=== PATIENT | female | born 1980 | race African-American/Black ===

== ENCOUNTER → 2020-05-02 10:27 | Outpatient (BNVA) | payer MEDICAID, SELFPAY | PROVIDERS: Visit Provider Internal Medicine Cardiovascular Disease | DX: I25.10 Atherosclerotic heart disease of native coronary artery without angina pectoris (principal); I10 Essential (primary) hypertension; I25.2 Old myocardial infarction; Z79.02 Long term (current) use of antithrombotics/antiplatelets; Z79.82 Long term (current) use of aspirin | CPT/HCPCS: 99212 ==

== ENCOUNTER → 2021-01-08 11:22 | Outpatient (BNVA) | payer MEDICAID, SELFPAY | PROVIDERS: Visit Provider Internal Medicine Cardiovascular Disease | DX: I25.10 Atherosclerotic heart disease of native coronary artery without angina pectoris (principal); I10 Essential (primary) hypertension; G47.30 Sleep apnea, unspecified | CPT/HCPCS: 93005; 99212 ==

== ENCOUNTER 2021-05-12 15:24 | Outpatient (REF) | payer OTHER, SELFPAY ==
[2021-05-12 16:04] LABS: Alanine Aminotransferase 15 U/L (0-31); Albumin Level 3.7 g/dL (3.5-5.0); Alkaline Phosphatase 114 U/L (39-117); Anion Gap 14 (12-20); Aspartate Amino Transferase 11 U/L (5-31); Bilirubin Total 0.5 mg/dL (0.0-1.0); Blood Urea Nitrogen 22 mg/dL (9-16); Calcium 9.7 mg/dL (8.4-10.2); Carbon Dioxide 28 mmol/L (22-29); Chloride 101 mmol/L (96-108); Cholesterol 220 mg/dL; Estimated Glomerular Filt Rate 58; Glucose Fasting 191 mg/dL (60-99); HDL Cholesterol 35 mg/dL; LDL Cholesterol Calculated 151 mg/dl; Potassium 4.1 mmol/L (3.3-5.1); Sodium 139 mmol/L (135-145); Total Protein 7.6 g/dL (6.5-8.0); Triglycerides 172 mg/dL
== END 2021-05-12 15:25 | disposition home or self-care (01) ==
LOC: HO.LAB 15:24
PROVIDERS: Visit Provider Nurse Practitioner Family
DX: I25.10 Atherosclerotic heart disease of native coronary artery without angina pectoris (principal)
CPT/HCPCS: 36415; 80053; 80061

== ENCOUNTER → 2021-10-30 13:13 | Outpatient (BNVA) | payer OTHER, SELFPAY | PROVIDERS: Visit Provider Nurse Practitioner Family | DX: I25.10 Atherosclerotic heart disease of native coronary artery without angina pectoris (principal); I25.5 Ischemic cardiomyopathy; I10 Essential (primary) hypertension | CPT/HCPCS: 99212 ==

== ENCOUNTER → 2022-07-09 14:52 | Outpatient (BNVA) | payer OTHER, SELFPAY | PROVIDERS: Visit Provider Internal Medicine Cardiovascular Disease | DX: I25.10 Atherosclerotic heart disease of native coronary artery without angina pectoris (principal); I25.5 Ischemic cardiomyopathy; I21.3 ST elevation (STEMI) myocardial infarction of unspecified site; I10 Essential (primary) hypertension; Z98.890 Other specified postprocedural states | CPT/HCPCS: 93005; 99212 ==

== ENCOUNTER → 2022-11-12 14:50 | Outpatient (BNVA) | payer OTHER, SELFPAY | PROVIDERS: Visit Provider Nurse Practitioner Family | DX: I25.10 Atherosclerotic heart disease of native coronary artery without angina pectoris (principal); I25.5 Ischemic cardiomyopathy; I10 Essential (primary) hypertension; E78.5 Hyperlipidemia, unspecified | CPT/HCPCS: 93005; 99212 ==

== ENCOUNTER → 2022-11-30 15:34 | Outpatient (BNVA) | payer OTHER, SELFPAY | PROVIDERS: Visit Provider Nurse Practitioner Family | DX: I16.0 Hypertensive urgency (principal); I25.10 Atherosclerotic heart disease of native coronary artery without angina pectoris; I25.5 Ischemic cardiomyopathy; I21.4 Non-ST elevation (NSTEMI) myocardial infarction; Z98.890 Other specified postprocedural states | CPT/HCPCS: 99212 ==

== ENCOUNTER 2022-11-30 16:14 | Emergency (ER) | payer OTHER, SELFPAY ==
[2022-11-30] VITALS (9 sets, daily range): BP systolic 165–215; BP diastolic 100–128; PULSE 73–84; RESP 13–20; TEMP 36.6–36.7; O2SAT 98–100; BMI 47.3
--- NOTE | ~2022-11-30 | US_ITS ---
EXAMINATION: US VENOUS ULTRASOUND WITH DOPPLER LOWER EXTREMITY, BILATERAL CLINICAL INFORMATION: Bilateral lower extremity pain. COMPARISON: None available. TECHNIQUE: Ultrasound of the deep veins is performed from the hip to the calf with compression sonography and color and pulse Doppler assessment. Spectral analysis with color-flow imaging is performed. FINDINGS: RIGHT: There is normal venous compression and respiratory variation and augmented flow. The visualized common femoral vein, superficial femoral vein, profunda femoral vein, popliteal vein, and the trifurcation region shows no evidence of deep venous thrombosis. There is a 3.0 x 0.8 x 1.9 cm right popliteal fossa Chowdary's cyst. LEFT: There is normal venous compression and respiratory variation and augmented flow. The visualized common femoral vein, superficial femoral vein, profunda femoral vein, popliteal vein, and the trifurcation region shows no evidence of deep venous thrombosis. There is no significant popliteal fossa cyst. If the patient's symptoms persist, followup ultrasound in 5 days 7 days might be of value to exclude proximal propagation from a non-visualized calf vein. US/US venous duplex LE BI IMPRESSION: 1. No DVT demonstrated in the bilateral lower extremities. 2. A 3.0 cm in maximal diameter right popliteal fossa Chowdary's cyst is seen.
--- NOTE | ~2022-11-30 | XR_ITS ---
EXAMINATION: XR CHEST CLINICAL INFORMATION: Chest pain COMPARISON: None available. TECHNIQUE: Portable upright AP view of the chest was obtained. FINDINGS: Lungs are clear. No pneumothorax, pleural reaction, infiltrate, or groundglass opacity. No effusion. The heart is within normal size. The hilar and mediastinal contours and bony structures are unremarkable. XR/XR chest 1V IMPRESSION: Unremarkable examination.
--- NOTE | 2022-11-30 16:26 | ED_ITS ---
HPI - General Adult General Chief complaint: Chest Pain Stated complaint: swollen legs ,chest discomfort Time Seen by Provider: 11/30/22 16:39 Source: patient, RN notes reviewed and old records reviewed Mode of arrival: ambulatory Limitations: no limitations History of Present Illness HPI narrative: 42-year-old female with past medical history significant for coronary artery disease, hypertension, diabetes, obesity, hyperlipidemia, ischemic cardiomyopathy presents for evaluation of leg swelling, chest tightness Patient reports 3 weeks of bilateral leg swelling, chest tightness. Denies any sharp chest pain or shortness of breath. She went to her PCP today who referred her to cardiology given elevated blood pressure. On arrival, the patient's blood pressure is 215 over 128. On re-evaluation it improved to 199/107 Patient currently takes metoprolol wants mg, chlorthalidone 50 mg, amlodipine 10 mg and losartan 50 mg daily A few weeks ago she stopped her isosorbide mononitrate as this was causing her to feel weak In the patient reports she is due to see Nephrology in February She also reports that her pilot plant technician is ?attempting to find a new medication for me instead of the isosorbide but they haven't prescribed anything else yet. Related Data Home Medications Medication Instructions Recorded Confirmed albuterol sulfate 90 mcg/actuation 0 mcg inhalation 05/02/20 11/30/22 aerosol inhaler aspirin 81 mg tablet,delayed 81 mg PO DAILY 05/02/20 11/30/22 release fluticasone propionate 110 0 mcg inhalation 05/02/20 11/30/22 mcg/actuation HFA aerosol inhaler insulin degludec 200 unit/mL (3 unit subcut 05/02/20 11/30/22 mL) subcutaneous pen Previous Rx's Medication Instructions Recorded atorvastatin 80 mg tablet 80 mg PO BEDTIME 30 days #30 tabs 12/19/20 clopidogrel 75 mg tablet 75 mg PO DAILY 30 days #30 tabs 12/19/20 losartan 50 mg tablet 50 mg PO DAILY 30 days #30 tabs 06/09/21 metoprolol succinate 100 mg 100 mg PO DAILY #90 tabs 05/18/22 tablet,extended release 24 hr ezetimibe 10 mg tablet 10 mg PO DAILY #90 tabs 06/16/22 amlodipine 10 mg tablet 10 mg PO DAILY #90 tabs 08/03/22 chlorthalidone 50 mg tablet 50 mg PO DAILY #30 tabs 10/08/22 Allergies Allergy/AdvReac Type Severity Reaction Status Date / Time No Known Allergies Allergy Verified 11/30/22 16:24 Review of Systems Constitutional: Constitutional: Reports as per HPI, Denies chills and Denies fever(s) Cardiovascular: Cardiovascular: Reports leg edema and Denies dyspnea Respiratory: Respiratory: Denies dyspnea Neurologic: Denies focal weakness PMFSH Past Medical History Medical History (Updated 11/30/22 @ 20:59 by Claus Chiu) STEMI (ST elevation myocardial infarction) Surgical History (Updated 11/30/22 @ 17:14 by Shelby Gleason NP-C) Hx of appendectomy Hx of cardiac cath Hx of tonsillectomy Family History Family History Mother CVD (cardiovascular disease) Family/Other CVD (cardiovascular disease) Social History Social History Alcohol intake: current Alcohol intake frequency: a few times a month Alcohol type: wine Patient Tobacco Use Status: Never used Tobacco Smoked in Last 30 Days: No Use of substances other than those prescribed or required for medical reasons: No Advance Directives: No Advance Directives Information Provided: No Physical Exam ED Vital Signs: Vital Signs - 24 hr 11/30/22 16:25 11/30/22 17:02 11/30/22 17:52 Temperature 97.8 F Pulse Rate 76 77 77 Respiratory Rate 18 19 16 Blood Pressure 215/128 H 199/107 H 203/109 H Pulse Oximetry 98 99 99 Oxygen Delivery Method Room Air Room Air Room Air 11/30/22 18:30 11/30/22 19:26 11/30/22 20:18 Temperature 98.1 F Pulse Rate 84 77 74 Respiratory Rate 20 15 13 Blood Pressure 200/109 H 192/103 H 180/103 H Pulse Oximetry 98 99 98 Oxygen Delivery Method Room Air Room Air Room Air 11/30/22 20:49 11/30/22 21:18 Temperature Pulse Rate 73 77 Respiratory Rate 15 18 Blood Pressure 189/109 H 165/100 H Pulse Oximetry 99 100 Oxygen Delivery Method Room Air Room Air BMI result Body Mass Index 47.3 Const General: healthy appearing, comfortable, no acute distress, alert and awake Nutritional Appearance: well nourished Orientation/consciousness: patient oriented x3 HENMT Head: Yes normocephalic and Yes atraumatic Eyes Eyelids: Yes eyelids normal Conjunctivae: conjunctivae normal Sclerae: sclerae normal Corneas: corneas normal Pupils: Equal, round and reactive pupils present EOM: EOMs intact bilaterally Neck Neck: Yes full ROM Resp Effort & Inspection: normal respiratory effort, able to speak in complete sentences, no audible wheezes and not labored Auscultation: clear to auscultation bilaterally Cardio Other: One to 2+ bilateral pitting edema to the mid lower legs. No overlying skin changes Rate: regular rate Rhythm: regular rhythm Skin General skin exam: no rashes or lesions noted and elasticity normal Neuro General: patient oriented x3 Cranial nerves: Yes Equal, round and reactive pupils present and Yes Bilaterally intact EOM present Cognition (Neuro): normal cognition Extrem Other: Moving all extremities well without any obvious deformities Course Course Course Narrative: RME: 42yo F w/PMHx STEMI, HLD, ischemic cardiomyopathy, sent to ED from Cardiology c/o b/l LE edema x3 weeks with chest discomfort intermittently x3 weeks & SOB. denies CARTER HTNsive 215/128 in triage, bilateral LE pitting edema noted EKG, labs, CXR ordered Full HPI, ROS and PE to be performed by primary ED provider. Reevaluation(s) Reevaluation #1: Patient's blood pressure has remained hypertensive despite labetalol 100 mg orally, labetalol 10 mg IV, nitropaste. Currently she is 189/109. We will give her a dose of hydralazine 25 mg IV. Depending on results of this treatment, we will discuss for potential admission. The patient reports that she is willing to stay if recommended. Currently she is completely asymptomatic denies any headache, chest pain or chest pressure Time: 20:58 Reevaluation #2: I was informed by nursing staff that just prior to receiving her hydralazine, the patient's blood pressure was 160/100. The patient also reports that her pilot plant technician prescribed her hydrochlorothiazide to start taking that she may picker/puller tomorrow. Given that the patient is asymptomatic, I do not feel that it is appropriate to attempt to lower the patient's blood pressure any more than she currently is. The patient will be discharged. She will follow-up with her pilot plant technician and PCP. She reports that she will be able to picker/puller her hydrochlorothiazide tomorrow Time: 21:25 Medications Administered Discontinued Medications Generic Name Dose Route Start Last Admin Trade Name Ammy PRMariam Reason Stop Dose Admin Hydralazine HCl 10 mg 11/30/22 20:57 11/30/22 21:18 Hydralazine Hcl 20 Mg/Ml Vial IVPUSH 11/30/22 20:58 Not Given ONCE ONE Protocol Labetalol HCl 100 mg 11/30/22 17:10 11/30/22 17:26 Labetalol Hcl 100 Mg Tablet PO 11/30/22 17:11 100 mg ONCE ONE Administration Protocol Labetalol HCl 10 mg 11/30/22 17:58 11/30/22 18:07 Labetalol Hcl 100 Mg/20 Ml Vial IVPUSH 11/30/22 17:59 10 mg ONCE ONE Administration Nitroglycerin 1 inch 11/30/22 19:03 11/30/22 19:43 Nitroglycerin 2 % Oint 1 Gm Packet TRANSDERMA 11/30/22 19:04 1 inch ONCE ONE Administration Medical Decision Making Medical Decision Making [facility] Narrative: 42-year-old female presents for evaluation of leg swelling and chest tightness. Her symptoms started about 3 weeks ago. The patient is notably hypertensive on arrival. She is already on 4 antihypertensive agents. Will give her a dose of labetalol 100 mg p.o. pending her workup. Her EKG does show some lateral T-wave inversions but when compared to her EKG from 11/12/2022, no significant changes are noted. Less likely to be acute ischemia given 3 weeks of discomfort but a troponin was ordered. Order ultrasound of lower extremity to rule out DVT. I do feel that her symptoms are most likely related to her uncontrolled hypertension Differential Diagnosis Uncontrolled hypertension Chest pain Cardiomyopathy Ischemia DVT PE Lab Data [facility] Lab Attestation statement: I reviewed the patient's lab results. Patient's BNP was slightly elevated to 102 from but no evidence of congestive heart failure 11/30/22 17:15 11/30/22 17:15 Labs: Lab Results 11/30/22 11/30/22 11/30/22 Range/Units 17:15 17:15 17:15 WBC 9.9 (4.8-10.8) X10*3/uL RBC 4.38 (4.20-5.50) X10*6/uL Hgb 11.0 L (12.0-16.0) g/dl Hct 35.0 L (37.0-47.0) % MCV 79.9 L (80.0-98.0) fL MCH 25.1 L (27.0-33.0) pg MCHC 31.4 (31.0-35.0) g/dl RDW 13.5 (11.0-16.0) % Plt Count 362 (160-400) X10*3/uL MPV 11.2 (9.4-12.3) fL Immature Gran % (Auto) 0.3 (0.0-0.4) % Neut % (Auto) 58.4 (45-73) % Lymph % (Auto) 29.2 (20-40) % [place] % (Auto) 10.1 (2-11) % Eos % (Auto) 1.7 (0-4) % Baso % (Auto) 0.3 (0-2) % Lymph # (Auto) 2.9 (1.2-4.9) X10*3/uL [place] # (Auto) 1.0 (0.1-1.2) X10*3/uL Eos # (Auto) 0.2 (0.0-0.4) X10*3/uL Baso # (Auto) 0.0 (0.0-0.2) X10*3/uL Abs Immat Gran (auto) 0.03 (0.00-0.03) X10*3/uL Absolute Neuts (auto) 5.8 (2.0-8.3) x10*3/uL Absolute Nucleated RBC 0.000 (0.0-0.012) X10*3/uL Nucleated RBC % (auto) 0.0 (0.0-0.2) /100WBC PT 9.1 L (10.0-13.1) SEC INR 0.8 L (0.9-1.1) Sodium 141 (135-145) mmol/L Potassium 3.6 (3.3-5.1) mmol/L Chloride 105 (96-108) mmol/L Carbon Dioxide 30 H (22-29) mmol/L Anion Gap 11 L (12-20) BUN 17 H (9-16) mg/dL Creatinine 0.92 (0.5-1.4) mg/dL Estim Creat Clear Calc 104.0 Estimated GFR > 60 Random Glucose 97 (60-115) mg/dL Calcium 9.5 (8.4-10.2) mg/dL Magnesium 2.1 (1.6-2.6) mg/dL Total Bilirubin 0.3 (0.0-1.0) mg/dL Direct Bilirubin 0.1 (0.0-0.5) mg/dL AST 14 (5-31) U/L ALT 13 (0-31) U/L Alkaline Phosphatase 138 H (39-117) U/L Troponin I High Sens (<3.5-17.0) ng/L B-Natriuretic Peptide (<100) pg/mL Total Protein 6.8 (6.5-8.0) g/dL Albumin 3.3 L (3.5-5.0) g/dL 11/30/22 11/30/22 Range/Units 17:15 17:15 WBC (4.8-10.8) X10*3/uL RBC (4.20-5.50) X10*6/uL Hgb (12.0-16.0) g/dl Hct (37.0-47.0) % MCV (80.0-98.0) fL MCH (27.0-33.0) pg MCHC (31.0-35.0) g/dl RDW (11.0-16.0) % Plt Count (160-400) X10*3/uL MPV (9.4-12.3) fL Immature Gran % (Auto) (0.0-0.4) % Neut % (Auto) (45-73) % Lymph % (Auto) (20-40) % [place] % (Auto) (2-11) % Eos % (Auto) (0-4) % Baso % (Auto) (0-2) % Lymph # (Auto) (1.2-4.9) X10*3/uL [place] # (Auto) (0.1-1.2) X10*3/uL Eos # (Auto) (0.0-0.4) X10*3/uL Baso # (Auto) (0.0-0.2) X10*3/uL Abs Immat Gran (auto) (0.00-0.03) X10*3/uL Absolute Neuts (auto) (2.0-8.3) x10*3/uL Absolute Nucleated RBC (0.0-0.012) X10*3/uL Nucleated RBC % (auto) (0.0-0.2) /100WBC PT (10.0-13.1) SEC INR (0.9-1.1) Sodium (135-145) mmol/L Potassium (3.3-5.1) mmol/L Chloride (96-108) mmol/L Carbon Dioxide (22-29) mmol/L Anion Gap (12-20) BUN (9-16) mg/dL Creatinine (0.5-1.4) mg/dL Estim Creat Clear Calc Estimated GFR Random Glucose (60-115) mg/dL Calcium (8.4-10.2) mg/dL Magnesium (1.6-2.6) mg/dL Total Bilirubin (0.0-1.0) mg/dL Direct Bilirubin (0.0-0.5) mg/dL AST (5-31) U/L ALT (0-31) U/L Alkaline Phosphatase (39-117) U/L Troponin I High Sens 9.9 (<3.5-17.0) ng/L B-Natriuretic Peptide 102 H (<100) pg/mL Total Protein (6.5-8.0) g/dL Albumin (3.5-5.0) g/dL Independent Interpretation I performed an independent interpretation of an: EKG (Sinus rhythm at a rate of 77 beats per minute. Lateral T-wave inversions) Discharge Plan Discharge Clinical Impression: Hypertensive urgency Patient Disposition: Home, Self-Care Instructions: Hypertensive Crisis (ED) Additional Instructions: Take all of your medications as prescribed. In addition picker/puller the hydrochlorothiazide was prescribed by her pilot plant technician Return for new or worsening symptoms Prescriptions: No Action atorvastatin 80 mg tablet 80 mg PO BEDTIME 30 Days Qty: 30 0RF Hold Instructions: clopidogrel 75 mg tablet 75 mg PO DAILY 30 Days Qty: 30 0RF losartan 50 mg tablet 50 mg PO DAILY 30 Days Qty: 30 4RF Hold Instructions: metoprolol succinate 100 mg tablet extended release 24 hr 100 mg PO DAILY Qty: 90 1RF Rx Instructions: Keep your upcoming appt with Dr. Johnson in June to cont receiving refills. ezetimibe 10 mg tablet 10 mg PO DAILY Qty: 90 3RF Hold Instructions: amlodipine 10 mg tablet 10 mg PO DAILY Qty: 90 1RF chlorthalidone 50 mg tablet 50 mg PO DAILY Qty: 30 5RF albuterol sulfate 90 mcg/actuation HFA aerosol inhaler 0 mcg inhalation Tresiba FlexTouch U-200 200 unit/mL (3 mL) insulin pen subcut aspirin 81 mg tablet,delayed release (DR/EC) 81 mg PO DAILY Flovent HFA 110 mcg/actuation HFA aerosol inhaler 0 mcg inhalation
--- NOTE | 2022-11-30 16:30 | ECG_ITS ---
Test Reason : chest pain Blood Pressure : / mmHG Vent. Rate : 077 BPM Atrial Rate : 077 BPM P-R Int : 134 ms QRS Dur : 100 ms QT Int : 398 ms P-R-T Axes : 047 008 139 degrees QTc Int : 450 ms Normal sinus rhythm Minimal voltage criteria for LVH, may be normal variant ( [place] product ) T wave abnormality, consider lateral ischemia Abnormal ECG No previous ECGs available Referred By: Amanda Ryan Electronically Signed By:CINDY DIAMOND MD
[2022-11-30 17:19] LABS: MANUAL DIFF FLAG NO
[2022-11-30 17:22] LABS: Basophils Percent Auto 0.3 % (0-2); Eosinophils Absolute Auto 0.2 X10*3/uL (0.0-0.4); Eosinophils Percent Auto 1.7 % (0-4); Imm Gran Abs Auto 0.03 X10*3/uL (0.00-0.03); Imm Gran Pct Auto 0.3 % (0.0-0.4); Lymphocytes Absolute Auto 2.9 X10*3/uL (1.2-4.9); Lymphocytes Percent Auto 29.2 % (20-40); Mean Corpuscular HGB Conc 31.4 g/dl (31.0-35.0); Mean Corpuscular Hemoglobin 25.1 pg (27.0-33.0); Mean Corpuscular Volume 79.9 fL (80.0-98.0); Mean Platelet Volume 11.2 fL (9.4-12.3); Monocytes Percent Auto 10.1 % (2-11); Neutrophils Absolute Auto 5.8 x10*3/uL (2.0-8.3); Neutrophils Percent Auto 58.4 % (45-73); Platelet Count 362 X10*3/uL (160-400); Red Blood Count 4.38 X10*6/uL (4.20-5.50); Red Cell Distribution Width 13.5 % (11.0-16.0); White Blood Count 9.9 X10*3/uL (4.8-10.8)
[2022-11-30] MEDS: Labetalol HCL 100 MG TABLET PO (17:26)
--- NOTE | 2022-11-30 17:28 | PC.NURSE ---
pt a&ox4, hypertensive, other vss. pt reporting 4/10 chest heaviness with bilateral lower extremity edema. 20G IV placed right AC, labs obtained. medicated per AUG. pt resting quietly, no new orders at this time.
[2022-11-30 17:32] LABS: INTERNATIONAL NORM RATIO 0.8 (0.9-1.1); Prothrombin Time 9.1 SEC (10.0-13.1)
[2022-11-30 17:41] LABS: Troponin-I High Sensitivity 9.9 ng/L (<3.5-17.0)
[2022-11-30 17:43] LABS: B Type Natriuretic Peptide 102 pg/mL (<100)
[2022-11-30] MEDS: Labetalol HCL 100 MG/20 ML VIAL 10 MG IVPUSH (18:07)
--- NOTE | 2022-11-30 18:11 | PC.NURSE ---
pt remains hypertensive, other vss, medicated per MAR.
[2022-11-30 18:12] LABS: Alanine Aminotransferase 13 U/L (0-31); Albumin Level 3.3 g/dL (3.5-5.0); Alkaline Phosphatase 138 U/L (39-117); Anion Gap 11 (12-20); Aspartate Amino Transferase 14 U/L (5-31); Bilirubin Direct 0.1 mg/dL (0.0-0.5); Bilirubin Total 0.3 mg/dL (0.0-1.0); Blood Urea Nitrogen 17 mg/dL (9-16); Calcium 9.5 mg/dL (8.4-10.2); Carbon Dioxide 30 mmol/L (22-29); Chloride 105 mmol/L (96-108); Estimated Glomerular Filt Rate > 60; Glucose Random 97 mg/dL (60-115); Magnesium 2.1 mg/dL (1.6-2.6); Potassium 3.6 mmol/L (3.3-5.1); Sodium 141 mmol/L (135-145); Total Protein 6.8 g/dL (6.5-8.0)
--- NOTE | 2022-11-30 18:55 | PC.NURSE ---
assumed care of pt- handoff report given by KIRK Brink aox4 no apparent distress, resting quietly while watching tv c/o sob, htn, no chest pain at this time, edema bilat feet, difficulty walking, fatigue on exertion, pt sent to ED by supervisor travel information center d/t htn h/o L renal artery stenosis, OR, DMII VSS- bp remains significantly elevated at 192/103 provider aware will CTM
[2022-11-30] MEDS: Nitroglycerin 2 % Oint 1 GM Packet 1 INCH TRANSDERMA (19:43)
--- NOTE | 2022-11-30 19:43 | PC.NURSE ---
administered 2% ointment 1 in transdermal per MAR applied to pt's L upper chest area
--- NOTE | 2022-11-30 21:20 | PC.NURSE ---
bp 165/100 provider notified per provider hydralazine held
--- NOTE | 2022-11-30 21:45 | PC.NURSE ---
Discharge instructions given and explained to pt No apparent distress, no sob, able to speak in full sentences aox4 ambulates safely/independently IV cath tip intact upon removal all of pt's questions answered
== END 2022-11-30 21:45 | disposition home or self-care (01) ==
PROVIDERS: Physician Assistant; Emergency Provider Emergency Medicine Emergency Medical Services
DX: I16.0 Hypertensive urgency (principal); I11.9 Hypertensive heart disease without heart failure; R07.9 Chest pain, unspecified; M79.89 Other specified soft tissue disorders; I25.10 Atherosclerotic heart disease of native coronary artery without angina pectoris; E11.9 Type 2 diabetes mellitus without complications; E78.5 Hyperlipidemia, unspecified; I43 Cardiomyopathy in diseases classified elsewhere
CPT/HCPCS: 36415; 71045; 80048; 80076; 83735; 83880; 84484; 85025; 85610; 93005; 93970; 96374; 99284; 99285

== ENCOUNTER 2022-12-28 12:57 | Outpatient (AMB) | payer OTHER, SELFPAY ==
--- NOTE | 2022-12-28 13:05 | A.OFFVIS_ITS ---
Intake Vital Signs 12/28/22 13:06 Height 5 ft 4 in Weight 264 lb 8.875 oz BMI 45.4 BP 160/100 H Blood Pressure Location Lt brachial Position Sitting Pulse 78 Intake Visit Reasons: s/p htn [facility] Intake Note: s/p htn [facility] Cash Management Coordinator Required: No Allergies No Known Allergies Allergy (Verified 12/28/22 13:14) Medication List - Last Reconciled 12/28/22 by Shelby Gleason, NOMAN-C albuterol sulfate 90 mcg/actuation 0 mcg inhalation amlodipine 10 mg PO DAILY aspirin 81 mg PO DAILY atorvastatin 80 mg PO BEDTIME 30 days chlorthalidone 50 mg PO DAILY clopidogrel 75 mg PO DAILY 30 days ezetimibe 10 mg PO DAILY fluticasone propionate 110 mcg/actuation 0 mcg inhalation insulin degludec units subcut losartan 50 mg PO DAILY 30 days metoprolol succinate ER 100 mg PO DAILY HPI s/p htn [facility] HPI Details Janice is a 42-year-old female with past medical history of hypertension, hyperlipidemia, inferior STEMI 07/2019 with occluded OM 2, NSTEMI 03/2022 determined to be related to uncontrolled hypertension, ischemic cardiomyopathy who presented last visit with sob, edema and uncontrolled BP. She was sent to ED for evaluation and treatment. She was treated with labetalol and hydralazine with reduction in blood pressure. Today she presents for follow-up. Today she states she continues to have elevated blood pressure readings whenever it is checked. She does not have a cuff at home but is asking for one. She has no headache or visual changes. No chest discomfort at rest or with activity. She does have shortness of breath with activity which she relates to asthma. No PND, orthopnea or edema. Prior edema resolved after the start of hydrochlorothiazide. E no dizziness, presyncope, syncope, falls. Taking meds as directed. [facility] Medical History STEMI (ST elevation myocardial infarction) Surgical History Hx of appendectomy Hx of cardiac cath Hx of tonsillectomy Family History Mother CVD (cardiovascular disease) Family/Other CVD (cardiovascular disease) Social History Alcohol intake: current Alcohol intake frequency: a few times a month Alcohol type: wine Patient Tobacco Use Status: Never used Tobacco Review of Systems Const All systems reviewed & are unremarkable except as noted in HPI and below ENT Reports dizziness Card Denies chest pain, Denies chest pain at rest, Denies chest pain with activity, Denies rapid heart rate, Denies pedal edema, Denies edema, Denies leg edema, Denies lightheadedness, Denies palpitations, Denies dyspnea, Denies dyspnea on exertion and Denies orthopnea Resp Denies cough, Denies dyspnea and Denies dyspnea on exertion GI Denies hematochezia and Denies change in stool character Musc Denies abnormal gait, Reports limited range of motion, Reports muscle cramps, Denies muscle weakness, Denies numbness, Denies radiating pain into limb, Denies stiffness and Denies tingling Neuro Denies abnormal gait, Reports dizziness, Denies numbness and Denies tingling Endo Denies palpitations Physical Exam Vital Signs: Last Vital Signs Pulse 78 12/28/22 13:06 BP 160/100 H 12/28/22 13:06 BMI result Body Mass Index 45.4 Const Other: morbidly obese General: cooperative, comfortable and no acute distress Orientation/consciousness: patient oriented x3 Neck Neck: Yes normal visual inspection Resp Effort & Inspection: normal respiratory effort Auscultation: clear to auscultation bilaterally, no crackles, no rales, no rhonchi and no wheezes Cardio Jugular venous distension: no JVD Rate: regular rate Rhythm: regular rhythm Heart sounds: S1 normal heart sound present, S2 normal heart sound present, no gallops, no murmurs and no rubs Peripheral pulses: Peripheral pulses 2+ throughout Neuro General: patient oriented x3 Extrem General: Yes normal to inspection Psych Appearance: grossly normal Mental Status: mental status grossly normal Speech and movement: Normal speech and movement present Office Procedures EKG Details: Today, read by me, normal sinus rhythm, ST and T-wave abnormality, inferior lateral leads, likely repolarization abnormality unchanged from prior EKG, rate 78, QTC 446 [id number], Complete Assessment & Plan Assessment & Plan (1) Uncontrolled hypertension: Code(s): I10 - Essential (primary) hypertension Plan: Blood pressure elevated at last visit initially 206/118 in our office. Recheck after 10 minutes by me 198/108. She reports symptoms of increased shortness of breath, chest heaviness and leg edema in the last 3 weeks. She reports compliance with all her medications including amlodipine, chlorthalidone, losartan, metoprolol XL. History of NSTEMI 03/2022 in the setting of uncontrolled hypertension. 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 Last echocardiogram done at [facility] on 04/19/2022 showing EF 45-50%, hypokinesis of the inferior and inferior lateral wall, LV wall thickness moderately increased. She was sent to the ER for evaluation and treatment. She was given labetalol and hydralazine with improvement in her blood pressure down to her usual is a 160 over 90s and she was discharged to home. Since then her PCP has added hydrochlorothiazide. She also continues on chlorthalidone. She tells me that she has a blockage in her kidney that adds to her blood pressure. I have reviewed our records at [facility] and I do not see a renal artery ultrasound report. She has an upcoming appointment with Nephrology to review. Today blood pressure is still not optimally controlled. She is not symptomatic at present. Will check labs today, BMP. Results available prior to the completion of this note. Potassium 3.4, creatinine 0.96. Will call her to verify her losartan dose and plan to increase. If no renal artery ultrasound can be accessed then will obtain prior to her next visit. Cardiology follow-up in 4-6 weeks for blood pressure evaluation and test result review. (2) CAD (coronary artery disease): Code(s): I25.10 - Atherosclerotic heart disease of [place] coronary artery without angina pectoris Plan: Known history of CAD as stated above. Previously reported chest heaviness when BP in high range. ER visit at the time of last visit and troponin was normal. No longer having chest discomfort and BP in better range however remains elevated. At present she is on aspirin, Plavix, high-dose atorvastatin, Zetia, metoprolol XL 100 mg daily (3) Ischemic cardiomyopathy: Code(s): I25.5 - Ischemic cardiomyopathy Plan: Last known EF 45-50%. Known ischemic cardiomyopathy. BNP only mildly elevated at recent ER visit. On exam today she has no clinical signs decompensated heart failure. 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 Panel 12/28/22 I10 - Essential (primary) hypertension Coding Level of Care Code Est Pt Level 4 (79861) Diagnoses Uncontrolled hypertension I10 CAD (coronary artery disease) I25.10 Ischemic cardiomyopathy I25.5 Hx of cardiac cath Z98.890 NSTEMI (non-ST elevated myocardial infarction) I21.4 CPT Codes EKG - CPT: 85943-[id number], Complete ([id number]) Time Spent (min) 26 Comment chart review, document, interview, assess
[2022-12-28 13:06] VITALS: BP 160/100; PULSE 78; BMI 45.4
== END 2022-12-28 13:38 | disposition home or self-care (01) ==
PROVIDERS: Visit Provider Nurse Practitioner Family
DX: I10 Essential (primary) hypertension (principal)
CPT/HCPCS: 93010; 99214

== ENCOUNTER 2022-12-28 12:57 | Outpatient (REF) | payer OTHER, SELFPAY ==
[2022-12-28 15:29] LABS: Alanine Aminotransferase 12 U/L (0-31); Albumin Level 3.2 g/dL (3.5-5.0); Alkaline Phosphatase 124 U/L (39-117); Anion Gap 13 (12-20); Aspartate Amino Transferase 13 U/L (5-31); Bilirubin Total 0.6 mg/dL (0.0-1.0); Blood Urea Nitrogen 20 mg/dL (9-16); Carbon Dioxide 30 mmol/L (22-29); Chloride 101 mmol/L (96-108); Cholesterol 299 mg/dL; Estimated Glomerular Filt Rate > 60; Glucose Random 145 mg/dL (60-115); HDL Cholesterol 40 mg/dL; LDL Cholesterol Calculated 217 mg/dl; Potassium 3.4 mmol/L (3.3-5.1); Sodium 141 mmol/L (135-145); Triglycerides 212 mg/dL
== END 2022-12-28 12:58 | disposition home or self-care (01) ==
LOC: HO.LAB 12:57
PROVIDERS: Visit Provider Nurse Practitioner Family
DX: I10 Essential (primary) hypertension (principal); I25.10 Atherosclerotic heart disease of native coronary artery without angina pectoris; I25.5 Ischemic cardiomyopathy; I21.4 Non-ST elevation (NSTEMI) myocardial infarction; Z98.890 Other specified postprocedural states
CPT/HCPCS: 36415; 80053; 80061; 93005; 99212

== ENCOUNTER 2023-07-26 08:50 | Outpatient (AMB) | payer OTHER, SELFPAY ==
[2023-07-26 08:53] VITALS: BP 160/114; PULSE 77; BMI 44.3
--- NOTE | 2023-07-26 08:53 | A.OFFVIS_ITS ---
Intake Vital Signs 07/26/23 08:53 Height 5 ft 4 in Weight 257 lb 15.053 oz BMI 44.3 BP 160/114 H Blood Pressure Location Rt brachial Position Sitting Pulse 77 Pulse Source Monitor Intake Visit Reasons: FU last seen december/2022 Installation Service Representative Required: No Allergies No Known Allergies Allergy (Verified 07/26/23 08:56) Medication List - Last Reconciled 07/26/23 by Shelby Gleason, CHARGE OUT CLERK-C albuterol sulfate 90 mcg/actuation 0 mcg inhalation amlodipine 10 mg PO DAILY aspirin 81 mg PO DAILY atorvastatin 80 mg PO BEDTIME 30 days blood pressure monitor (Blood Pressure Kit) As directed chlorthalidone 50 mg PO DAILY clopidogrel 75 mg PO DAILY 30 days ezetimibe 10 mg PO DAILY fluticasone propionate 110 mcg/actuation 0 mcg inhalation hydralazine 100 mg PO ONCE insulin degludec units subcut losartan 50 mg PO DAILY 30 days metoprolol succinate ER 100 mg PO DAILY HPI FU last seen december/2022 HPI Details Janice is a 42-year-old female with past medical history of morbid obesity, hypertension, hyperlipidemia, inferior STEMI 07/2019 with occluded OM 2, NSTEMI 03/2022 determined to be related to uncontrolled hypertension, ischemic cardiomyopathy who presents for follow-up. 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 They have taken over management of her blood pressure medications. Hydralazine was recently added. She has follow-up in a few weeks. She tells me she did have a renal artery ultrasound though not at [facility]. Results unknown. She has been experiencing some sharp pains to her left chest region which occur randomly and can last a few minutes before resolving. She describes this as being new. She says at the time she had a heart attack she only felt a cramping in her left scapula and left anterior shoulder region. She thought she had a pulled muscle. She describes that when she had a ruptured appendix at only caused her minor discomfort. She believes that she does not have a strong pain sensory response to things. Mild shortness of breath insertion, not new. No palpitations, lightheadedness, presyncope, syncope, falls. No PND, orthopnea or edema. Taking all meds as directed. 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 [facility] Medical History STEMI (ST elevation myocardial infarction) Surgical History Hx of cardiac cath Hx of tonsillectomy Hx of appendectomy Family History Mother CVD (cardiovascular disease) Family/Other CVD (cardiovascular disease) Social History Alcohol intake: current Alcohol intake frequency: a few times a month Alcohol type: wine Patient Tobacco Use Status: Never used Tobacco Review of Systems Const Details: Reports blood pressure had been running high but feels good with no concerning symptoms All systems reviewed & are unremarkable except as noted in HPI and below ENT Denies dizziness Card Denies chest pain, Denies chest pain at rest, Denies chest pain with activity, Denies rapid heart rate, Denies pedal edema, Denies edema, Denies leg edema, Denies lightheadedness, Denies palpitations, Denies dyspnea, Denies dyspnea on exertion and Denies orthopnea Resp Denies cough, Denies dyspnea and Denies dyspnea on exertion GI Denies hematochezia and Denies change in stool character Musc Denies abnormal gait, Denies limited range of motion, Denies muscle cramps, Denies muscle weakness, Denies numbness, Denies radiating pain into limb, Denies stiffness and Denies tingling Neuro Denies abnormal gait, Denies dizziness, Denies numbness and Denies tingling Endo Denies palpitations Physical Exam Const Other: Morbidly obese General: cooperative, comfortable and no acute distress Orientation/consciousness: patient oriented x3 Neck Neck: Yes normal visual inspection Resp Effort & Inspection: normal respiratory effort Auscultation: clear to auscultation bilaterally, no rales, no rhonchi and no wheezes Cardio Jugular venous distension: no JVD Rate: regular rate Rhythm: regular rhythm Heart sounds: S1 normal heart sound present, S2 normal heart sound present, no murmurs and no rubs Neuro General: patient oriented x3 Extrem General: Yes normal to inspection and No no pedal edema Psych Appearance: grossly normal Mental Status: mental status grossly normal Speech and movement: Normal speech and movement present Office Procedures EKG Details: Today, read by me, sinus rhythm, rate 77, ST and T-wave abnormality in the inferior and lateral leads. Compared to prior EKG, inferior segment now involved. QTC 443 milliseconds [id number], Complete Assessment & Plan Assessment & Plan (1) Uncontrolled hypertension: Code(s): I10 - Essential (primary) hypertension Plan: History of uncontrolled hypertension. History of NSTEMI 03/2022 in the setting of uncontrolled hypertension. 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 Last echocardiogram done at [facility] on 04/19/2022 showing EF 45-50%, hypokinesis of the inferior and inferior lateral wall, LV wall thickness moderately increased. On follow-up visits here her blood pressure has been elevated. She tells me she is now following with Nephrology at [facility]. Hydralazine was recently added. She continues on amlodipine, chlorthalidone, losartan and metoprolol XL. Blood pressure today 160/114. She reports strict compliance with her medications. She describes having a renal artery ultrasound completed but results are unknown. She has follow-up with [facility] Nephrology in a few weeks. They will continue to manage her blood pressure as she is currently feeling well. She says she has never had a sleep study. Will order a home sleep study to evaluate for ELMA. Emergency care if ever needed for any concerning symptoms. (2) CAD (coronary artery disease): Code(s): I25.10 - Atherosclerotic heart disease of [place] coronary artery without angina pectoris Plan: Known history of CAD as stated above. Previously reported chest heaviness when BP in high range. No recent reports of chest heaviness. She has been getting sharp pains in the left chest region which are new or and can last a few minutes before resolving. These occur periodically without known trigger. Will update nuclear stress test to evaluate for any ischemia. Plan for a pharmacological nuclear stress test as her blood pressure has been elevated. Will update echocardiogram as last EF did show reduced EF. Signs and symptoms of angina reviewed with her. Plan to call her with test results. Cardiology office visit in 6 months, sooner if needed. Continue aspirin, Plavix, high-dose atorvastatin , Zetia, metoprolol XL 100 mg daily (3) Ischemic cardiomyopathy: Code(s): I25.5 - Ischemic cardiomyopathy Plan: Last known EF 45-50%. Known ischemic cardiomyopathy. On exam today she has no clinical signs decompensated heart failure. 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 Code(s): Z98.890 - Other specified postprocedural states Plan: As above (5) NSTEMI (non-ST elevated myocardial infarction): Code(s): I21.4 - Non-ST elevation (NSTEMI) myocardial infarction Plan: As above Plan Time spent on chart review, documentation, interview and assessment Orders: Orders CA lexiscan stress w ashish Today I10 - Essential (primary) hypertension, I25.10 - Atherosclerotic heart disease of [place] coronary artery without angina pectoris, R94.31 - Abnormal electrocardiogram [ECG] [EKG] NM cardiolite stress test Today I10 - Essential (primary) hypertension, I25.10 - Atherosclerotic heart disease of [place] coronary artery without angina pectoris, R94.31 - Abnormal electrocardiogram [ECG] [EKG] CA echo transthoracic complete Today I10 - Essential (primary) hypertension, I25.10 - Atherosclerotic heart disease of [place] coronary artery without angina pectoris, R94.31 - Abnormal electrocardiogram [ECG] [EKG] RT home sleep study Today G47.10 - Hypersomnia, unspecified, I10 - Essential (primary) hypertension Coding Level of Care Code Est Pt Level 4 (09869) Diagnoses Uncontrolled hypertension I10 CAD (coronary artery disease) I25.10 Ischemic cardiomyopathy I25.5 Hx of cardiac cath Z98.890 NSTEMI (non-ST elevated myocardial infarction) I21.4 CPT Codes EKG - CPT: [id number], Complete ([id number]) Time Spent (min) 30
== END 2023-07-26 09:24 | disposition home or self-care (01) ==
PROVIDERS: Visit Provider Nurse Practitioner Family
DX: I10 Essential (primary) hypertension (principal); I25.10 Atherosclerotic heart disease of native coronary artery without angina pectoris; I25.5 Ischemic cardiomyopathy; Z98.890 Other specified postprocedural states; I21.4 Non-ST elevation (NSTEMI) myocardial infarction
CPT/HCPCS: 93010; 99214

== ENCOUNTER → 2023-07-26 08:50 | Outpatient (BNVA) | payer OTHER, SELFPAY | PROVIDERS: Visit Provider Nurse Practitioner Family | DX: I10 Essential (primary) hypertension (principal); I25.10 Atherosclerotic heart disease of native coronary artery without angina pectoris; I25.5 Ischemic cardiomyopathy; I25.2 Old myocardial infarction; Z79.02 Long term (current) use of antithrombotics/antiplatelets; Z79.82 Long term (current) use of aspirin; Z79.899 Other long term (current) drug therapy | CPT/HCPCS: 93005; 99212 ==

== ENCOUNTER → 2023-08-26 07:57 | Outpatient (REF) | payer OTHER, SELFPAY ==
--- NOTE | ~2023-08-26 | NM_ITS ---
Myocardial perfusion study Indication: Atherosclerotic heart disease to evaluate for myocardial ischemia Technique: The patient was brought in for a Lexiscan perfusion study on 08/26/2023. Patient performed low-level exercise and was injected 0.4 mg of Lexiscan intravenously. Within a minute of injection, 40 mCi of sestamibi was given intravenously. Images were obtained using the SPECT gamma camera interlaced with the gating device. Images were obtained in supine position. Resting perfusion study was performed on 08/31/2023. Patient was administered 40 mCi of sestamibi intravenously at rest. Images were then obtained in supine position. Images obtained with and without CT attenuation. Total DLP 188 mGy-cm. Images were processed with the software and compared side to side in short axis, horizontal long axis and vertical long axis views. Findings: The stress perfusion study showed showed large area all severely to absent uptake in the entire inferolateral, lateral as well as absent uptake in the inferoapical and moderately reduced uptake in the distal anterolateral and mildly reduced uptake in the distal anterior wall of the LV myocardium. The septum, the basal and mid anterior wall are relatively well perfused. The basal and mid anterolateral wall of the LV is.. The gated study shows reduced LV systolic function with calculated LVEF of 43%. LV cavity is moderately dilated size. The gated study shows inferolateral, lateral and inferoapical hypokinesis with normal wall thickening and contraction of other segments. Resting study shows improved uptake but mildly reduced uptake in the distal inferolateral, but normalize uptake in the basal and mid inferolateral as well as lateral and anterolateral wall of the LV myocardium.. Gating at rest reveals inferoapical wall motion with ejection fraction at 48%. The findings are consistent with large area of reversible defect in the inferolateral and lateral wall of the LV myocardium suggestive of intensity.. NM/NM cardiolite stress test Impression: 1. Myocardial perfusion imaging study shows no intensity large inferolateral and lateral wall ischemia in the circumflex distribution 2. Gated LVEF is 43% with stress and 48% with rest 3. Transient ischemic dilatation present EKG is nondiagnostic for ischemia
--- NOTE | 2023-08-26 08:00 | CA_ITS ---
Acquisition Time: 2023-08-26 08:50:18 Total Exercise Time: 00:02:00 Test Indications: Chest Pain, Shortness of breath Medications: See H Protocol: LEXISCAN Max HR: 103 BPM 57% of Pred: 178 BPM Max BP: 184/106 mmHG Max Work Load: 1.0 METS Pharmacological stress test with Lexiscan injection while sitting and kicking her legs, without anginal symptoms, without arrhythmias, with resting HTN, appropreiate response to injection, with nondiagnoisitic EKGs. Aminophylline 75mg IVP given to reverse Leixscan. Nuclear images pending. Test reviewed with Dr. Johnson. Referred By: Shelby Gleason Overread By: Susan Rodgers
--- NOTE | 2023-08-26 08:00 | CA_ITS ---
Transthoracic Echocardiogram Patient (Last, First, Middle): Janice Davenport, Gender: Female Date of : 1980 Age: 42 Procedure Date: 08/26/2023 Procedure Type: Transthoracic Echocardiogram Location: OP Height: 162.56 cm Weight: 116.12 kg BSA: 2.17 m2 Heart Rate: bpm BP: 144 / 77 mmHg Carbonation Equipment Operator: WILLIAM Referring MD: Shelby Gleason WASTE COLLECTION DRIVER-Dona Batch Blender: Zeus Smith MD Symptoms: I10 - Essential (primary) hypertension Study Quality: Adequate ECG Rhythm: Sinus Conclusions: - 1. Normal LV ejection fraction 55-60% with impaired relaxation filling pattern and elevated filling pressures with regional wall motion abnormality consistent with underlying coronary artery disease 2. Mild aortic regurgitation 3. Normal RV systolic pressure 4. No gross pericardial effusion Findings Left Ventricle Normal left ventricular size, thickness, and systolic function. The visually estimated ejection fraction is between 55-60%. There is evidence of regional wall motion abnormalities. Spectral Doppler is indicative of an impaired relaxation filling pattern. E/E prime ratio is >15, consistent with elevated filling pressures. Peak GLS is -16.2%, which is mildly reduced. Wall Motion Rest Echo Findings The inferoseptal wall, the basal inferior, and mid inferior segments are hypokinetic. All other scored wall segments showed normal motion. Right Ventricle Normal right ventricular cavity size and systolic function. Atria The left atrium is mildly dilated. There is no evidence of interatrial shunt. The right atrium is normal in size. Aortic Valve Normal aortic valve structure and function. There is no aortic valve stenosis. There is mild aortic valve regurgitation. Mitral Valve There is mild anterior and posterior mitral leaflet thickening. There is mild mitral annular calcification. There is trace mitral valve regurgitation. There is no mitral valve stenosis. Pulmonic Valve The pulmonic valve was not well visualized. Tricuspid Valve Normal tricuspid valve structure. There is mild tricuspid valve regurgitation. The right ventricular systolic pressure is normal. The right ventricular systolic pressure is 29 mmHg. Normal right atrial pressure. There is no evidence of pulmonary hypertension. Great Vessels All visible segments of the aorta are normal in size. The pulmonary artery was not well visualized. There is no dilatation of the ascending aorta measuring 3.30 cm. Venous The inferior vena cava is normal in size and collapses greater than 50% with inspiration. Pericardium/Pleural There is no evidence of pericardial effusion. Prior Study Comparison No prior study available for comparison. Measurements 2D Linear Measurements IVSd: 1.01 0.6-0.9/0.6-1.0 cm LVIDd: 5.40 3.9-5.3/4.2-5.9 cm LVIDd Index: 2.49 2.4-3.2/2.2-3.1 cm/m2 LVIDs: 3.61 2.0-3.6 cm LVPWd: 1.14 0.7-1.1 cm LA Diam: 4.40 2.7-3.8/3.0-4.0 cm LAIDs Index: 2.03 1.5-2.3 cm/m2 LV Mass: 283.82 67-162/88-224 g LV Mass Index: 130.79 43-95/49-115 g/m2 LVOT Diam: 2.00 3.0+(-)1.3 cm 2D Systolic Function EF 4C: 54.40 >55% EF 2C: 58.00 >55% EF BiP: 55.90 >55% Mitral Valve MV Pk E: 1.03 MV PK A: 1.23 MV Decel Time: 167.00 E/A: 0.80 E'Lateral: 4.57 E'Medial: 4.68 E/E' Med: 22.00 E/E' Lat: 22.50 PHT: 49.00 MVA PHT: 4.49 Decel [place]: 6.15 Aortic Valve AoV Pk [place]: 1.61 AoV Mn [place]: 1.04 AoV VTI: 0.33 AoV Pk Grad: 10.00 Aov Mn Grad: 5.00 GEETA Cont.VTI: 2.21 LVOT LVOT Pk [place]: 1.07 LVOT Mn [place]: 0.72 LVOT VTI: 0.23 LVOT Pk Grad: 5.00 LVOT Mn Grad: 2.00 LVOT Diam: 2.00 LVOT Area: 3.14 Diastolic Function MV Pk E: 1.03 MV Pk A: 1.23 E/A: 0.80 E'Medial: 4.68 E/E' Med: 22.00 E' Laterial: 4.57 E/E' Lat: 22.50 Right Ventricle TAPSE (mm): 22.10 TVS' [place]: 11.10 Tricuspid Valve TR Pk [place]: 2.56 TR Pk Grad: 26.00 RA Press: 3.00 RVSP: 29.00 Great Vessels Aorta Sinus of Valsalva: 3.24 2.0-3.[address] [place]: 2.73 1.7-3.4 cm Ao Asc: 3.30 2.1-3.4 cm Ao Arch: 2.90 Updated in Other Vendor System with Status of Final Zeus Smith MD electronically signed on 08/26/2023 1:48:45 PM with status of Final
== END ==
LOC: HO.CARD 07:57
PROVIDERS: Visit Provider Nurse Practitioner Family
DX: I25.10 Atherosclerotic heart disease of native coronary artery without angina pectoris (principal); I10 Essential (primary) hypertension; R94.31 Abnormal electrocardiogram [ECG] [EKG]
CPT/HCPCS: 78452; 93017; 93306; 93356; A9500; J0280; J2785

== ENCOUNTER → 2023-08-26 08:00 | Outpatient (BNV) | payer OTHER, SELFPAY | PROVIDERS: Visit Provider Internal Medicine Cardiovascular Disease | DX: I25.10 Atherosclerotic heart disease of native coronary artery without angina pectoris (principal); I35.1 Nonrheumatic aortic (valve) insufficiency | CPT/HCPCS: 78452; 93016; 93018; 93306; 93356 ==

== ENCOUNTER → 2023-09-07 13:19 | Outpatient (REF) | payer OTHER, SELFPAY | LOC: HO.SL 13:19 | PROVIDERS: Visit Provider Nurse Practitioner Family | DX: G47.10 Hypersomnia, unspecified (principal); I10 Essential (primary) hypertension; R06.83 Snoring | CPT/HCPCS: 95806 ==

== ENCOUNTER → 2023-09-07 14:05 | Outpatient (BNV) | payer OTHER, SELFPAY | PROVIDERS: Visit Provider Internal Medicine | DX: R06.83 Snoring (principal) | CPT/HCPCS: 95806 ==

== ENCOUNTER 2023-09-20 11:32 | Outpatient (REF) | payer OTHER, SELFPAY ==
[2023-09-20 11:44] LABS: MANUAL DIFF FLAG NO
[2023-09-20 12:38] LABS: Basophils Percent Auto 0.4 % (0-2); Eosinophils Absolute Auto 0.2 X10*3/uL (0.0-0.4); Eosinophils Percent Auto 1.8 % (0-4); Hematocrit 33.8 % (37.0-47.0); Hemoglobin 10.4 g/dl (12.0-16.0); INTERNATIONAL NORM RATIO 0.8 (0.9-1.1); Imm Gran Abs Auto 0.07 X10*3/uL (0.00-0.03); Imm Gran Pct Auto 0.7 % (0.0-0.4); Lymphocytes Absolute Auto 2.7 X10*3/uL (1.2-4.9); Lymphocytes Percent Auto 26.6 % (20-40); Mean Corpuscular HGB Conc 30.8 g/dl (31.0-35.0); Mean Corpuscular Hemoglobin 24.4 pg (27.0-33.0); Mean Corpuscular Volume 79.2 fL (80.0-98.0); Mean Platelet Volume 11.5 fL (9.4-12.3); Monocytes Percent Auto 9.7 % (2-11); Neutrophils Absolute Auto 6.3 x10*3/uL (2.0-8.3); Neutrophils Percent Auto 60.8 % (45-73); Platelet Count 376 X10*3/uL (160-400); Prothrombin Time 9.8 SEC (11.1-13.3); Red Blood Count 4.27 X10*6/uL (4.20-5.50); Red Cell Distribution Width 15.3 % (11.0-16.0); White Blood Count 10.3 X10*3/uL (4.8-10.8)
[2023-09-20 13:02] LABS: Anion Gap 12 (12-20); Blood Urea Nitrogen 29 mg/dL (9-16); Calcium 9.4 mg/dL (8.4-10.2); Carbon Dioxide 24 mmol/L (22-29); Chloride 108 mmol/L (96-108); Estimated Glomerular Filt Rate 38; Glucose Random 254 mg/dL (60-115); Potassium 4.9 mmol/L (3.3-5.1); Sodium 139 mmol/L (135-145)
== END 2023-09-20 11:33 | disposition home or self-care (01) ==
LOC: HO.LAB 11:32
PROVIDERS: Visit Provider Nurse Practitioner Family
DX: R94.39 Abnormal result of other cardiovascular function study (principal)
CPT/HCPCS: 36415; 80048; 85025; 85610

== ENCOUNTER 2023-10-09 08:44 | Outpatient (REF) | payer OTHER, SELFPAY ==
[2023-10-09 09:00] LABS: MANUAL DIFF FLAG NO
[2023-10-09 10:05] LABS: Basophils Absolute Auto 0.1 X10*3/uL (0.0-0.2); Basophils Percent Auto 0.5 % (0-2); Eosinophils Absolute Auto 0.2 X10*3/uL (0.0-0.4); Eosinophils Percent Auto 2.1 % (0-4); Hemoglobin 10.3 g/dl (12.0-16.0); Imm Gran Abs Auto 0.04 X10*3/uL (0.00-0.03); Imm Gran Pct Auto 0.4 % (0.0-0.4); Lymphocytes Absolute Auto 2.6 X10*3/uL (1.2-4.9); Lymphocytes Percent Auto 27.9 % (20-40); Mean Corpuscular HGB Conc 31.2 g/dl (31.0-35.0); Mean Corpuscular Hemoglobin 24.7 pg (27.0-33.0); Mean Corpuscular Volume 79.1 fL (80.0-98.0); Mean Platelet Volume 11.8 fL (9.4-12.3); Monocytes Absolute Auto 0.9 X10*3/uL (0.1-1.2); Monocytes Percent Auto 9.8 % (2-11); Neutrophils Absolute Auto 5.4 x10*3/uL (2.0-8.3); Neutrophils Percent Auto 59.3 % (45-73); Platelet Count 365 X10*3/uL (160-400); Red Blood Count 4.17 X10*6/uL (4.20-5.50); White Blood Count 9.2 X10*3/uL (4.8-10.8)
[2023-10-09 10:15] LABS: INTERNATIONAL NORM RATIO 0.8 (0.9-1.1); Prothrombin Time 10.2 SEC (11.1-13.3)
[2023-10-09 10:58] LABS: Anion Gap 11 (12-20); Blood Urea Nitrogen 25 mg/dL (9-16); Calcium 9.1 mg/dL (8.4-10.2); Carbon Dioxide 27 mmol/L (22-29); Chloride 107 mmol/L (96-108); Estimated Glomerular Filt Rate 51; Glucose Random 119 mg/dL (60-115); Potassium 3.9 mmol/L (3.3-5.1); Sodium 141 mmol/L (135-145)
== END 2023-10-09 08:45 | disposition home or self-care (01) ==
LOC: HO.LAB 08:44
PROVIDERS: Visit Provider Nurse Practitioner Family
DX: R94.39 Abnormal result of other cardiovascular function study (principal); R94.31 Abnormal electrocardiogram [ECG] [EKG]
CPT/HCPCS: 36415; 80048; 85025; 85610

== ENCOUNTER → 2023-10-19 23:59 | Outpatient (BNV) | payer OTHER, SELFPAY | PROVIDERS: Visit Provider Internal Medicine Cardiovascular Disease | DX: I20.89 Other forms of angina pectoris (principal); R93.1 Abnormal findings on diagnostic imaging of heart and coronary circulation | CPT/HCPCS: 92928; 93458; 93571; 99152 ==

== ENCOUNTER 2023-11-08 15:41 | Outpatient (AMB) | payer OTHER, SELFPAY ==
[2023-11-08 15:47] VITALS: BP 162/90; PULSE 80; BMI 44.6
--- NOTE | 2023-11-08 15:47 | MHC.OFFVIS ---
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 Allergies No Known Allergies Allergy (Verified 11/08/23 15:49) Medication List - Last Reconciled 11/08/23 by Shelby Gleason NP-C albuterol sulfate 90 mcg/actuation 0 mcg inhalation amlodipine 10 mg PO DAILY aspirin 81 mg PO DAILY atorvastatin 80 mg PO DAILY blood pressure monitor (Blood Pressure Kit) As directed chlorthalidone 50 mg PO DAILY clopidogrel 75 mg PO DAILY 30 days ezetimibe 10 mg PO DAILY fluticasone propionate 110 mcg/actuation 0 mcg inhalation hydralazine 100 mg PO ONCE insulin degludec units subcut losartan 50 mg PO DAILY 30 days metoprolol succinate ER 100 mg PO DAILY spironolactone 50 mg PO BID HPI HPI fu cardiac cath (rs): Details: Janice is a 42-year-old female with past medical history of morbid obesity, hypertension, hyperlipidemia, inferior STEMI 07/2019 with occluded OM 2, NSTEMI 03/2022 determined to be related to uncontrolled hypertension, ischemic cardiomyopathy who reported intermittent sharp chest discomfort on last visit and underwent an echocardiogram and nuclear stress test. Her nuclear stress test was abnormal and she then underwent a cardiac catheterization and now presents for follow-up. Today she reports she has been feeling well since her catheterization procedure. She has some minor soreness in her right arm. Her cath site itself is feeling well. She has not been having the sharp chest discomfort recently. She does have some shortness of breath with activities but states that this has improved. She has been attending cardiac rehab which she says she is tolerating well. She is pleased that she is able to do more recently. No lightheadedness, presyncope, syncope, falls. No PND, orthopnea or edema. Taking meds as directed. Has a follow-up with her index editor next week. Taking all meds as directed. No bleeding issues reported. [facility] Medical History STEMI (ST elevation myocardial infarction) Surgical History Hx of cardiac cath Hx of tonsillectomy Hx of appendectomy Family History Mother CVD (cardiovascular disease) Family/Other CVD (cardiovascular disease) Social History Alcohol intake: current Alcohol intake frequency: a few times a month Alcohol type: wine Patient Tobacco Use Status: Never used Tobacco Review of Systems Const All systems reviewed & are unremarkable except as noted in HPI and below ENT Reports dizziness Card Denies chest pain, Denies chest pain at rest, Denies chest pain with activity, Denies rapid heart rate, Denies pedal edema, Denies edema, Denies leg edema, Denies lightheadedness, Denies palpitations, Reports dyspnea, Reports dyspnea on exertion and Denies orthopnea Resp Denies cough, Reports dyspnea and Reports dyspnea on exertion GI Denies hematochezia and Denies change in stool character Musc Denies abnormal gait, Denies limited range of motion, Denies muscle cramps, Denies muscle weakness, Denies numbness, Denies radiating pain into limb, Denies stiffness and Denies tingling Neuro Denies abnormal gait, Reports dizziness, Denies numbness and Denies tingling Endo Denies palpitations Physical Exam Vital Signs: Last Vital Signs Pulse 80 11/08/23 15:47 BP 162/90 H 11/08/23 15:47 BMI result Body Mass Index 44.6 Const Other: Morbidly obese General: cooperative, comfortable and no acute distress Orientation/consciousness: patient oriented x3 Neck Neck: Yes normal visual inspection Resp Effort & Inspection: normal respiratory effort Auscultation: clear to auscultation bilaterally, no rales, no rhonchi and no wheezes Cardio Jugular venous distension: no JVD Rate: regular rate Rhythm: regular rhythm Heart sounds: S1 normal heart sound present, S2 normal heart sound present, no murmurs and no rubs Neuro General: patient oriented x3 Extrem Other: Right radial catheterization site with easily palpable radial pulse, right hand assessment normal General: Yes normal to inspection and No no pedal edema Psych Appearance: grossly normal Mental Status: mental status grossly normal Speech and movement: Normal speech and movement present Assessment & Plan Assessment & Plan (1) CAD (coronary artery disease): Code(s): I25.10 - Atherosclerotic heart disease of lummi coronary artery without angina pectoris Category: Medical Plan: Known history of CAD, with NSTEMI 03/2022 in the setting of uncontrolled hypertension. Prior cardiac catheterization showing moderate mid LAD stenosis, severe 1st diagonal stenosis and WELLNESS SPA MANAGER of OM 2 with collaterals. More recently she has had issues with uncontrolled hypertension and now follows with Nephrology as well. She has reported some chest heaviness when her blood pressure was elevated. On last visit she reported getting sharp pains in the left chest region which were new, lasting minutes before resolving. She underwent a nuclear stress test on 08/31/2023 showing large area of inferior lateral and lateral wall ischemia in the circumflex distribution. An echocardiogram was done 08/26/2023 showing EF 55-60%, wall motion abnormality consistent with underlying CAD, mild AR. She then underwent cardiac catheterization as stated below. She had severe OM1 proximal stenosis and ADONAY was placed. Today she reports no sharp chest pains, her prior shortness of breath with activity has improved some. She is attending cardiac rehab. She is still having issues with uncontrolled hypertension. She has Nephrology follow-up next week. Blood pressure elevated today. She tells me home blood pressures ranging from 120 systolic up to 180 systolic. Since she is seeing Nephrology next week will not make med changes. Will have her continue on aspirin indefinitely. Continue Plavix uninterrupted for 1 year post stent. Continue amlodipine and metoprolol. Continue atorvastatin with ideal LDL goal less than 70. Signs and symptoms of angina reviewed. Cardiology follow-up in 3 months, sooner if needed. (2) S/P cardiac cath: Comment: 10/19/2023, mid LAD 40% stenosis, diffuse severe disease in the diagonal, left circumflex 1st OM proximal 85% stenosis, RCA, right PDA proximal 80% stenosis, 1st RPL proximal 85% stenosis, collaterals from 2nd RPL to 2nd OM, collaterals from distal LAD to the 2nd OM, PCI and stent placed to the 1st OM, IFR to the LAD was normal at 0.99 Code(s): Z98.890 - Other specified postprocedural states Category: Surgical Plan: Right radial catheterization site healing well (3) Hx of cardiac cath: Comment: 08/01/2019 occluded OM 2, questions CAD, on successful PCI 04/20/2022, moderate mid LAD stenosis, severe 1st diagonal stenosis, WELLNESS SPA MANAGER of OM 2 with collaterals Code(s): Z98.890 - Other specified postprocedural states Category: Surgical Plan: As above (4) Uncontrolled hypertension: Code(s): I10 - Essential (primary) hypertension Category: Medical Plan: History of uncontrolled hypertension. Has been on multiple medications for blood pressure control. She tells me home blood pressure is currently ranging systolic 120 up to 180. In the past her systolic had been running over 200 frequently. She is now following with Nephrology at [facility]. And has an appointment next week. She reports compliance with her medications. At this time will have her continue current med management including amlodipine, chlorthalidone, hydralazine, losartan, metoprolol XL, spironolactone. She describes having a renal artery ultrasound and tells me there is something going on with the artery to her kidneys. Ultrasound done in [place] and being managed by her index editor. She did have a sleep study recently done which showed no obstructive sleep apnea. Recent echo does show normal EF. Will have her see her index editor next week. They will continue to manage her blood pressure. (5) Ischemic cardiomyopathy: Code(s): I25.5 - Ischemic cardiomyopathy Category: Medical Plan: Prior known EF 45-50%. Now EF is normalized however wall motion abnormality present. Recent cardiac catheterization and stenting as above. On exam today she has no clinical signs decompensated heart failure. Plan Time spent on chart review, documentation, interview and assessment Medications: New atorvastatin Cholesterol-lowering medication 80 mg PO BEDTIME 30 days 30 tabs 5RF Coding Level of Care Code Est Pt Level 4 (05836) Diagnoses CAD (coronary artery disease) I25.10 S/P cardiac cath Z98.890 Hx of cardiac cath Z98.890 Uncontrolled hypertension I10 Ischemic cardiomyopathy I25.5 Time Spent (min) 30
== END 2023-11-08 17:11 | disposition home or self-care (01) ==
PROVIDERS: Visit Provider Nurse Practitioner Family
DX: I25.10 Atherosclerotic heart disease of native coronary artery without angina pectoris (principal); Z98.890 Other specified postprocedural states; I10 Essential (primary) hypertension; I25.5 Ischemic cardiomyopathy
CPT/HCPCS: 99214

== ENCOUNTER → 2023-11-08 15:41 | Outpatient (BNVA) | payer OTHER, SELFPAY | PROVIDERS: Visit Provider Nurse Practitioner Family | DX: I25.10 Atherosclerotic heart disease of native coronary artery without angina pectoris (principal); I25.5 Ischemic cardiomyopathy; I10 Essential (primary) hypertension; Z98.890 Other specified postprocedural states | CPT/HCPCS: 99212 ==

== ENCOUNTER 2024-02-16 15:54 | Outpatient (AMB) | payer OTHER, SELFPAY ==
[2024-02-16 16:01] VITALS: BP 140/74; PULSE 83; BMI 43.8
--- NOTE | 2024-02-16 16:01 | A.OFFVIS_ITS ---
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 Accompanied by: Self / Same As Patient Allergies No Known Allergies Allergy (Verified 11/08/23 15:49) Medication List - Last Reconciled 02/16/24 by Chau Johnson MD albuterol sulfate 90 mcg/actuation 0 mcg inhalation amlodipine 10 mg PO DAILY aspirin 81 mg PO DAILY atorvastatin 80 mg PO BEDTIME 30 days blood pressure monitor (Blood Pressure Kit) As directed chlorthalidone 50 mg PO DAILY clopidogrel 75 mg PO DAILY 30 days ezetimibe 10 mg PO DAILY fluticasone propionate 110 mcg/actuation 0 mcg inhalation hydralazine 50 mg PO BID insulin degludec units subcut losartan 50 mg PO DAILY 30 days metoprolol succinate ER 100 mg PO DAILY spironolactone 50 mg PO BID HPI Comments Details: Janice is a 41 yo female with PMH of HTN, HLD, DM who presented to [facility] [place] on [place]/01/19 with report of left chest pressure, inferior STEMI. Emergent cath showed subtotal occlusion of OM2 with ?SCAD, with attempt of PCI, unsuccessful. She was managed medically. Clinically spontaneous coronary artery dissection was 1 of the concerns given her age. She had 3 days of left arm discomfort, shoulder discomfort and chest discomfort. Her echocardiogram showed her EF of 40 45% with inferior and apical hypokinesis. She was doing fine in follow-up. Not she returns for follow-up. She had an admission at [facility] in March 2022 with chest discomfort radiating to arm and back. Her blood pressure was significantly elevated her troponins were negative. She had some ECG changes with T-wave inversions in the lateral leads. She was taken for cardiac catheterization by Dr. Rice. Catheterization showed moderate disease in the mid LAD and severe 1st diagonal stenosis., chronic total occlusion of the 2nd OM with [id number] collaterals, disease in a 1st PL branch with significant disease the 2nd PLV branch. Decision was made to medically treat her and treat the PLV branch in case she develops any anginal symptoms. It was felt that her presentation was due to elevated blood pressures. Her troponins were negative. She is denying any significant chest discomfort since she left the hospital. Blood pressure is mildly elevated in the office. She is taking metoprolol succinate 100 mg, chlorthalidone 50 mg and amlodipine 10 mg daily and losartan 50 mg daily. 02/16/24: She is here for f/u. She has no CP or SOB. BP is elevated. She is following with renal. She has been taking meds. She had OM PCI previously. [facility] Medical History STEMI (ST elevation myocardial infarction) Surgical History Hx of cardiac cath Hx of tonsillectomy Hx of appendectomy Family History Mother CVD (cardiovascular disease) Family/Other CVD (cardiovascular disease) Social History Alcohol intake: current Alcohol intake frequency: a few times a month Alcohol type: wine Patient Tobacco Use Status: Never used Tobacco Review of Systems Const Denies chills, Denies fatigue, Denies fever(s), Denies frequent falls, Denies weakness, Denies weight gain and Denies weight loss ENT Denies dizziness Card Denies chest pain, Denies leg edema, Denies lightheadedness, Denies palpitations, Denies dyspnea and Denies dyspnea on exertion Resp Denies cough, Denies dyspnea and Denies dyspnea on exertion GI Denies hematochezia Musc Denies abnormal gait, Denies muscle weakness, Denies numbness, Denies radiating pain into limb and Denies tingling Neuro Denies abnormal gait, Denies dizziness, Denies frequent falls, Denies numbness, Denies tingling and Denies weakness Endo Denies fatigue and Denies palpitations Physical Exam Vital Signs: Last Vital Signs Pulse 83 02/16/24 16:01 BP 140/74 H 02/16/24 16:01 BMI result Body Mass Index 43.8 GENERAL APPEARANCE: In no acute distress EYES: sclera non-icteric. NECK/THYROID: neck supple, no jugular venous distention, no carotid bruit. SKIN: warm and dry. HEART: PMI is nondisplaced, S1, S2 normal. No murmurs, rubs, gallops. Regular rate and rhythm.. LUNGS: clear to auscultation bilaterally, good air movement. ABDOMEN: bowel sounds present, normal, no organomegaly . EXTREMITIES: no clubbing, cyanosis, or edema. NEUROLOGIC: nonfocal. Assessment & Plan Assessment & Plan (1) S/P cardiac cath: Comment: 10/19/2023, mid LAD 40% stenosis, diffuse severe disease in the diagonal, left circumflex 1st OM proximal 85% stenosis, RCA, right PDA proximal 80% stenosis, 1st RPL proximal 85% stenosis, collaterals from 2nd RPL to 2nd OM, collaterals from distal LAD to the 2nd OM, PCI and stent placed to the 1st OM, IFR to the LAD was normal at 0.99 Code(s): Z98.890 - Other specified postprocedural states Category: Surgical (2) Hypertension: Code(s): I10 - Essential (primary) hypertension Category: Medical Plan 43 female with known CAD and OM PCI, HTN and kidney disease. She is diabetic. She is following with renal. BP is elevated. Advised her to increase hydralazine to 50 TID. c/w DAPT. f/u in few months. Coding Level of Care Code Est Pt Level 4 (84146) Diagnoses S/P cardiac cath Z98.890 Hypertension I10
== END 2024-02-16 16:18 | disposition home or self-care (01) ==
PROVIDERS: Visit Provider Internal Medicine Cardiovascular Disease
DX: Z98.890 Other specified postprocedural states (principal); I10 Essential (primary) hypertension
CPT/HCPCS: 99214

== ENCOUNTER → 2024-02-16 15:54 | Outpatient (BNVA) | payer OTHER, SELFPAY | PROVIDERS: Visit Provider Internal Medicine Cardiovascular Disease | DX: I10 Essential (primary) hypertension (principal); I25.10 Atherosclerotic heart disease of native coronary artery without angina pectoris; E11.9 Type 2 diabetes mellitus without complications; Z98.890 Other specified postprocedural states | CPT/HCPCS: 99212 ==

== ENCOUNTER 2025-03-23 09:44 | Outpatient (REF) | payer OTHER, SELFPAY ==
[2025-03-23 13:21] LABS: Appearance Urine Cloudy; Glucose Urine UA >=1000 mg/dL (Negative); PH 5.0 (5.0-9.0); Specific Gravity - Urine 1.015 (1.005-1.025); UMIC TRIGGER UACC YES
[2025-03-23 13:49] LABS: MANUAL DIFF FLAG NO
[2025-03-23 14:03] LABS: Hematocrit 33.8 % (37.0-47.0); Hemoglobin 10.2 g/dl (12.0-16.0); Imm Gran Abs Auto 0.05 X10*3/uL (0.00-0.03); Imm Gran Pct Auto 0.5 % (0.0-0.4); Lymphocytes Absolute Auto 2.3 X10*3/uL (1.2-4.9); Mean Corpuscular HGB Conc 30.2 g/dl (31.0-35.0); Mean Corpuscular Hemoglobin 22.6 pg (27.0-33.0); Mean Corpuscular Volume 74.8 fL (80.0-98.0); NRBC Abs Auto 0.000 X10*3/uL (0.0-0.012); NRBC Pct Auto 0.0 /100WBC (0.0-0.2); Platelet Count 324 X10*3/uL (160-400); Red Blood Count 4.52 X10*6/uL (4.20-5.50); White Blood Count 10.0 X10*3/uL (4.8-10.8)
[2025-03-23 14:06] LABS: UACC Culture Trigger YES
[2025-03-23 14:56] LABS: Microalbum/Creatinine Ratio Ur 3247.6 ug/mg cr (<30)
[2025-03-23 18:53] LABS: Alanine Aminotransferase 16 U/L (0-31); Albumin Level 3.4 g/dL (3.5-5.0); Alkaline Phosphatase 114 U/L (39-117); Anion Gap 10 (12-20); Aspartate Amino Transferase 25 U/L (5-31); Blood Urea Nitrogen 28 mg/dL (9-16); Calcium 9.0 mg/dL (8.4-10.2); Carbon Dioxide 26 mmol/L (22-29); Chloride 107 mmol/L (96-108); Cholesterol 156 mg/dL (<200); Estimated Glomerular Filt Rate 32; HDL Cholesterol 40 mg/dL (>40); Magnesium 2.5 mg/dL (1.6-2.6); Potassium 4.1 mmol/L (3.3-5.1); Sodium 139 mmol/L (135-145); Total Protein 7.2 g/dL (6.5-8.0); Triglycerides 110 mg/dL (<150)
[2025-03-23 19:19] LABS: Folate 4.4 ng/mL (> or = 4.0); Vitamin B12 286 pg/mL (200-900)
[2025-03-24 04:48] LABS: HBS Num1 4.44 mIU/mL (0-7.99); HBsAGNum1 0.34 S/CO (0.00-0.99); HIV Num 1 0.07 S/CO (0.00-0.99); Hepatitis B Surface Antigen Negative (Negative); ~HepC Num1 0.11 S/CO (0.00-0.79); ~Hepatitis B Surface Antibody NONREACTIVE (Nonreactive); ~Hepatitis C Antibody Nonreactive (Nonreactive)
[2025-04-01 06:19] LABS: VITAMIN D (1,25 OH) D3 21 pg/mL; Vit D (1,25-Dihydroxy) Total 21 pg/mL (18-72); Vitamin D (1,25 OH) D2 <8 pg/mL
== END 2025-03-23 09:45 | disposition home or self-care (01) ==
LOC: HO.HKASLDS 09:44
PROVIDERS: PCP Student in an Organized Health Care Education/Training Program; Visit Provider Student in an Organized Health Care Education/Training Program
DX: Z13.9 Encounter for screening, unspecified (principal); E11.9 Type 2 diabetes mellitus without complications; K58.9 Irritable bowel syndrome, unspecified; I10 Essential (primary) hypertension; E78.5 Hyperlipidemia, unspecified; I25.10 Atherosclerotic heart disease of native coronary artery without angina pectoris; I25.2 Old myocardial infarction; I70.1 Atherosclerosis of renal artery; H40.9 Unspecified glaucoma; K58.2 Mixed irritable bowel syndrome; E87.70 Fluid overload, unspecified; Z86.73 Personal history of transient ischemic attack (TIA), and cerebral infarction without residual deficits
CPT/HCPCS: 36415; 80053; 80061; 81001; 82043; 82570; 82607; 82652; 82746; 83036; 83735; 84443; 85025; 86706; 86803; 87086; 87340; 87389; 99202

== ENCOUNTER 2025-03-23 09:44 | Outpatient (AMB) | payer MEDICAID, SELFPAY ==
--- OUTSIDE RECORDS SUMMARY | 2025-03-07 10:20 | XMS_ITS ---
Author Organization [facility] [employer] [facility] Address [address] [place] [id number] Care Team Providers Care Traffic Control Signaler Name Role Phone Laura Kearney Primary Care Provider Simone Tamayo Unavailable [phone] REASON FOR VISIT Physical Adult Social History Sex Assigned At : Social History Observation Description Sex Assigned At Female Encounters Encounter Location Date Provider Diagnosis [address] [address] 03/07/2025 Simone Tamayo Plan Of Treatment No Information Progress Notes * Janice LANIERDOB: 1 (44 yo F)Acc No.[id number]:03/07/2025 Progress Notes Patient: Yue BYRNESKAVEH Janice Provider: Jordyn Tamayo DO :1980 A ge:44 Y S ex:Female Date:03/07/2025 External Visit ID:[id number] Address:[address] [place], [place] [id number] Pcp:Laura Kearney Subjective: * Chief Complaints: * 1 . Physical Adult. * Medical History: Objective: * Vitals: * Physical Examination: Assessment: Plan: * Treatment: Care Plan: * Problems: * Billing Information: * Visit Code: * Procedure Codes: Care Plan Details* * Electronic signature of Amber Tamayo DO on 03/23/2025 at 10:19 AM EDT Sign off status: Pending * Provider: Jordyn Tamayo DO Date: 0 03/07/2025 Generated for Carlosi nicky/Carolee/eTransmitting on: 1 10:19 AM EDT
--- NOTE | 2025-03-23 09:48 | A.OFFPC_ITS ---
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 // heart failure, diabetes Pupil Personnel Services Director Required: No Accompanied by: Self / Same As Patient Allergies No Known Allergies Allergy (Verified 03/23/25 09:51) Tobacco use date assessed: 03/23/25 Dental Screening Dental Screen Date: 03/23/25 Did you have a dental visit in the last 12 months?: Yes Did you have a dental problem in the last 6 months where you did not have access to dental care?: No Was dental information given to patient?: Patient has dentist HPI HPI Comments History of Present Illness Details History of Present Illness The patient is a 44-year-old female presenting for a change of primary care provider and management of chronic conditions. Essential Hypertension: - The patient reports consistently eleva alisia blood pressure despite being on multiple antihypertensive medications, including chlorthalidone, amlodipine, spironolactone, and losartan. - Recent changes include switching from metoprolol to diltiazem due to renal artery stenosis. Myocardial Infarction: - The patient experienced a myocardial i nfarction in 1999 and subsequently received a stent in 2022. Fluid Overload: - The patient reports episodes of fluid overload requiring outpatient diuresis with IV diuretics, initially Lasix, now switched to a stronger diuretic. Renal Artery Stenosis: - The patient has renal artery stenosis, which is being managed by her lan/wan engineer in conjunction with her construction project mgr to control blood pressure. Glaucoma: - The patient has glaucoma in the right eye, receiving monthly injections and has undergone laser surgery in both eyes. Ischemic Stroke: - The patient suffered an ischemic strok e in June, resulting in vision loss in the right eye, but no motor weakness. Diabetes Mellitus: - The patient's HbA1c has improved from 14 to 7.3 with the use of Trulicity, reducing the need for multiple daily insulin injections. Irritable Bowel Syndrome, Mixed Type: - The patient experiences alternating co nstipation and diarrhea, consistent with IBS mixed type, and has not seen a hospice home health aide in two years. Review of Systems - Cardiovascular: Reports consistently e levated blood pressure. Denies chest pain or palpitations. - Neurological: Reports vision loss in t he right eye post-stroke. Denies motor weakness or dizziness. - Gastrointestinal: Reports alternating constipation and diarrhea. Denies abdominal pain. - Endocrine: Reports significant improve ment in HbA1c levels. Denies hypoglycemic episodes. - Ophthalmologic: Reports glaucoma in th e right eye with monthly injections. Denies changes in vision in the left eye. 10-point ROS reviewed and negative excep t as noted in HPI Past Medical History - Myocardial Infarction in 1999 with keya nt placement in 2022 - Ischemic Stroke in June 2022 with r esultant right eye vision loss - Glaucoma with laser surgery in both ey es - Diabetes Mellitus with improved HbA1c from 14 to 7.3 - Irritable Bowel Syndrome, Mixed Type Health Maintenance - Pap smear up to date, last done a year ago - Mammogram recently completed with norm al results - Colonoscopy performed due to previous appendiceal issues Physical Exam General: Well-appearing, in no acute distress. Vital signs: Blood pressure is elevated. HEENT: Normocephalic, atraumatic. PERRLA, EOMI. Conjunctiva clear, sclera anicteric. Oropharynx clear, mucous membranes moist. TMs intact bilaterally. Lumps noted on the head. Neck: Supple, no lymphadenopathy, no thyromegaly, no JVD or carotid bruits. Cardiovascular: RRR, normal S1/S2, no murmurs, rubs, or gallops. Peripheral pulses 2+ and symmetric. No edema. Respiratory: Lungs clear to auscultation bilaterally, no wheezes, rales, or rhonchi. Normal effort. Abdomen: Soft, non-tender, non-distended. Normoactive bowel sounds. No hepatosplenomegaly, no masses. MSK: Full range of motion, no joint swelling or deformity. Normal gait. Calluses noted on hands. Skin: Warm, dry, intact. No rashes, lesions, or pallor. Neuro: Alert and oriented x3. Cranial nerves II-XII intact. Strength 5/5 throughout. Sensation intact. Reflexes 2+ symmetric. Normal coordination and gait. History of ischemic stroke in June affecting the right eye. Psych: Appropriate mood and affect. Normal judgment and insight. Reports difficulty sleeping, waking every two hours. Plan 1. Essential Hypertension - Continue current antihypertensive leila men with recent switch from metoprolol to diltiazem. Monitor blood pressure closely and follow up in two weeks. 2. Myocardial Infarction - Continue current cardiac medications a nd follow up with construction project mgr as scheduled. 3. Fluid Overload - Continue outpatient diuresis with curr ent diuretic regimen. Monitor for signs of fluid overload. 4. Renal Artery Stenosis - Continue management under lan/wan engineer and construction project mgr for blood pressure control. 5. Glaucoma - Continue monthly ophthalmologic inject ions and follow up for glaucoma management. 6. Ischemic Stroke - Follow up with neurologist for ongoing stroke management and vision assessment. 7. Diabetes Mellitus - Continue Trulicity and monitor HbA1c l evels. Follow up with commercial relief driver as needed. 8. Irritable Bowel Syndrome, Mixed Type - Referral to gastroenterology for [facility] evaluation and management. Discussion Notes During the visit, we discussed the management of the patient's chronic conditions, including hypertension, heart failure, and diabetes. We reviewed the recent medication changes and the need for close monitoring of blood pressure and glucose levels. I advised the patient to continue with her current medications and follow up with her specialists as scheduled. We also discussed the importance of routine screenings and maintaining regular follow-ups with her healthcare providers. Patient was informed and verbally consented to the use of an ambient scribe for clinic note documentation during this visit. Patient Instructions - Continue taking all prescribed medicat ions as directed. - Monitor blood pressure and blood sugar levels regularly. - Follow up with your construction project mgr, neph rologist, and commercial relief driver as scheduled. - Attend the gastroenterology appointmen t for IBS evaluation. - Maintain routine screenings, including eye exams for glaucoma. Total time spent caring for the patient today was 40minutes. This includes time spent before the visit reviewing the chart, time spent documenting, and time spent reviewing medications, performing a medically necessary evaluation, counseling on diagnoses, care coordination, ordering appropriate tests, ordering appropriate medications. [facility] Medical History (Updated 03/24/25 @ 10:41 by Dennis Castillo MD) Irritable bowel syndrome with mixed bowel habits History of ischemic stroke Glaucoma Renal artery stenosis History of myocardial infarction IBS (irritable bowel syndrome) Encounter for screening, unspecified Diabetes type 2 STEMI (ST elevation myocardial infarction) Surgical History Hx of cardiac cath Hx of tonsillectomy Hx of appendectomy Family History Mother CVD (cardiovascular disease) Family/Other CVD (cardiovascular disease) Social History (Updated 03/23/25 @ 09:59 by Gary Worthington MA) Housing: House Alcohol intake: current Alcohol intake frequency: does not drink Patient Tobacco Use Status: Never used Tobacco service: No Current occupational status: disabled Vision needs: Yes (rx glasses) Questionnaire PHQ-9 Over the last 2 weeks, how often have you been bothered by any of the following problems? 1. Little interest or pleasure in doing things: several days 2. Feeling down, depressed, or hopeless: not at all 3. Trouble falling or staying asleep, or sleeping too much: several days 4. Feeling tired or having little energy: several days 5. Poor appetite or overeating: not at all 6. Feeling bad about yourself - or that you are a failure or have let yourself or your family down: not at all 7. Trouble concentrating on things, such as reading the newspaper or watching television: not at all 8. Moving or speaking so slowly that other people could have noticed. Or the opposite - being so fidgety or restless that you have been moving around a lot more than usual: not at all 9. Thoughts that you would be better off or of hurting yourself in some way: not at all Total score: 3 Source: Developed by Drs. Jose Miguel Kuhn, Paulette Flores, Sukhjinder Zhou and colleagues, with an educational radu from [employer]. Thrive Questionnaire Date Thrive assessed: 03/22/25 I am a: Patient What is your living situation today?: I have a steady place to live Within the past 12 months, did the food you bought not last and you didn't have the money to get more?: I choose not to answer this question Within the past 12 months, did you worry whether your food would run out before you got money to buy more?: I choose not to answer this question Do you have trouble paying for medicines?: No Do you have trouble getting transportation to medical appointments?: Yes Do you have trouble paying your heating and electricity bill?: Yes Do you have trouble taking care of your child, family member or friend?: No Do you have trouble with day-to-day activities such as bathing, preparing meals, shopping, managing finances, etc.?: I choose not to answer this question Are you currently unemployed and looking for a job?: Yes Are you interested in more education?: No Please select the resources that you would like help with: Transportation Currently or been in a relationship where the following occur: No concerns reported THRIVE Score: 2 AUDIT C Alcohol Use Questionnaire (AUDIT-C) 1. How often do you have a drink containing alcohol?: Monthly or less 2. How many drinks containing alcohol do you have on a typical day when you are drinking?: 1 or 2 3. How often do you have six or more drinks on one occasion?: Never Total Score: 1 LEONID-7 AMB Questionnaire LEONID-7 Feeling nervous, anxious, or on edge: 1 = Several days Not being able to stop or control worryin = Not at all Worrying too much about different things: 1 = Several days Trouble relaxin = Several days Being so restless that it is hard to sit still: 0 = Not at all Becoming easily annoyed or irritable: 0 = Not at all Feeling afraid as if something awful might happen: 0 = Not at all Total LEONID-7 score (0-4 normal; 5-9 mild; 10-14 moderate; 15-21 severe): 3 Source: Developed by Drs. Jose Miguel Kuhn, Paulette Flores, Sukhjinder Zhou and colleagues, with an educational radu from [employer]. Physical exam (Primary Care) Vital Signs: Last Vital Signs Temp 98 F 03/23/25 09:59 Pulse 80 03/23/25 09:59 Resp 16 03/23/25 09:59 BP 185/106 H 03/23/25 09:59 Pulse Ox 100 03/23/25 09:59 Oxygen Delivery Method Room Air 03/23/25 09:59 BMI result Body Mass Index 43.2 Tobacco/Smoking Status: Tobacco use Status Tobacco use date assessed 03/23/25 03/23/25 10:02 Patient Tobacco Use Status Never used Tobacco 03/23/25 09:59 PHQ-9: PHQ-9 Score PHQ-9: Total score 3 03/23/25 10:02 Thrive Assessment: Date of Thrive Assessment Date Thrive assessed 03/22/25 03/23/25 09:49 Currently or been in a relationship where the following occur: No concerns reported Coding Level of Care Code New Pt Level 4 (85824) Diagnoses Hypertension I10 Hyperlipidemia E78.5 Diabetes type 2 E11.9 CAD (coronary artery disease) I25.10 History of myocardial infarction I25.2 Renal artery stenosis I70.1 Glaucoma H40.9 History of ischemic stroke Z86.73 Irritable bowel syndrome with mixed bowel habits K58.2 Fluid overload E87.70 Assessment & Plan Assessment & Plan (1) Hypertension: Code(s): I10 - Essential (primary) hypertension Category: Medical (2) Hyperlipidemia: Code(s): E78.5 - Hyperlipidemia, unspecified Category: Medical (3) Diabetes type 2: Code(s): E11.9 - Type 2 diabetes mellitus without complications Category: Medical (4) CAD (coronary artery disease): Code(s): I25.10 - Atherosclerotic heart disease of platinum coronary artery without angina pectoris Category: Medical (5) History of myocardial infarction: Code(s): I25.2 - Old myocardial infarction Category: Medical (6) Renal artery stenosis: Code(s): I70.1 - Atherosclerosis of renal artery Category: Medical (7) Glaucoma: Code(s): H40.9 - Unspecified glaucoma Category: Medical (8) History of ischemic stroke: Code(s): Z86.73 - Personal history of transient ischemic attack (TIA), and cerebral infarction without residual deficits Category: Medical (9) Irritable bowel syndrome with mixed bowel habits: Code(s): K58.2 - Mixed irritable bowel syndrome Category: Medical (10) Fluid overload: Code(s): E87.70 - Fluid overload, unspecified Plan Orders: Orders Comprehensive Met. Panel 03/23/25 Z. - Encounter for screening, unspecified Hepatitis B Surface Antigen 03/23/25 Z13. - Encounter for screening, unspecified HIV Ab/Ag 03/23/25. - Encounter for screening, unspecified Lipid Panel 03/23/25. - Encounter for screening, unspecified TSH reflex Free T4 03/23/25 Z13. - Encounter for screening, unspecified Vitamin D 1,25 dihydroxy 03/23/25 Z13. - Encounter for screening, unspecified Complete Blood Count Auto Diff 03/23/25 Z13.9 - Encounter for screening, unspecified Hemoglobin A1c 03/23/25 E11.9 - Type 2 diabetes mellitus without complications Hepatitis B Surface Antibody 03/23/25 Z13.9 - Encounter for screening, unspecified Hepatitis C Antibody 03/23/25 Z13.9 - Encounter for screening, unspecified Magnesium 03/23/25 Z13.9 - Encounter for screening, unspecified Microalbumin, Random (w Creat) 03/23/25 Z13.9 - Encounter for screening, unspecified UA CC w/rflx Micro + Cult 03/23/25 Z13.9 - Encounter for screening, unspecified Vitamin B12 and Folate 03/23/25 Z13.9 - Encounter for screening, unspecified Referrals Gastroenterology Referral K58.9 - Irritable bowel syndrome, unspecified Medications: Discontinued clopidogrel Discontinued Reason: Patient no longer taking 75 mg PO DAILY 30 days 30 tabs 0RF metoprolol succinate ER Discontinued Reason: Patient no longer taking 100 mg PO DAILY 90 tabs 3RF
[2025-03-23 09:59] VITALS: BP 185/106; PULSE 80; RESP 16; TEMP 36.6; O2SAT 100; BMI 43.2
--- OUTSIDE RECORDS SUMMARY | 2025-03-23 10:19 | XMS_ITS | Encounter Summary ---
Author Organization [facility] Address [address] [place] [id number] Care Team Providers Care Interactive Producer Name Role Phone Pcp, No MD Primary Care Provider Unavailabl e Encounter Details Date Type Department Care Team (Late st Contact Info) Description 02/28/2025 Results Follow-Up [facility] [address] [id number] Cam Jimenez PA [address] [place] [address] [place] [address] Renal function panel, N-terminal pro B-type natriuetic peptide (NTproBNP) Social History Tobacco Use Types Packs/Day Years Used Date Smoking Tobacco: Never Smokeless Tobacco: Never Alcohol Use Standard Drinks/Week Comments Yes 0 (1 standard drink = 0.6 oz pur e alcohol) rarely Comments Unknown Sex and Gender Information Value Date Recorded Sex Assigned at Not on file Legal Sex Female 1:40 PM EDT Gender Identity Female 04/21/2023 2:14 PM EDT Sexual Orientation Not on file COVID-19 Exposure Response Date Recorded In the last 10 days, have yo u been in contact with someone who was confirmed or suspected to have Coronavirus/COVID-19? No / Unsure 02/27/2025 10:42 AM EDT documented as of this encounter Plan of Treatment Upcoming Encounters Date Type Department Care Team (Late st Contact Info) Description 05/02/2025 11:00 AM EST Office Visit [facility] [address] [phone] Randall Aguiar MD [address] [place] [address] [place] [address] 05/03/2025 12:00 PM EST Office Visit [facility] Department of Nephrology [address] [place] [address] Cassidy Melendez MD [address] [place] [address] [place] [address] 06/06/2025 10:00 AM EST Nurse Only [facility] [address] [place] [address] documented as of this encounter Visit Diagnoses Not on filedocumented in this encounter Care Teams Interactive Producer Relationship Specialty Start Date End Date PcpNiki MD [address] [place] [address] PCP - General Internal Medicine 01/18/23 documented as of this encounter
--- OUTSIDE RECORDS SUMMARY | 2025-03-23 10:19 | XMS_ITS | Clinical Summary ---
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 Active amLODIPine (NORVASC) 10 mg tablet 021 Active aspirin 81 mg EC tablet Take 81 mg by mouth in the morning. Active atorvastatin (LIPITOR) 40 mg tablet Take 40 mg by mouth. 016 Active chlorthalidone (HYGROTEN) 50 mg tablet Take 50 mg by mouth in the morning. Active EPINEPHrine (EPIPEN) 0.3 mg/0.3 mL injection 023 Active FreeStyle Patrick 2 Sensor kit 023 Active Tresiba FlexTouch U-200 200 unit/mL (3 mL) insulin pen 90 UNITS SUBCUTANEOUS INJECTION DAILY,FOR 30 DAYS, ROTATE INJECTION SITES 023 Active insulin glargine (SEMGLEE) 100 unit/mL injection Inject 90 Units under the skin. Active INSULIN LISPRO SUBQ Inject under the skin. Active Linzess 72 mcg capsule PRN as needed Active norethindrone (Ortho Micronor) 0.35 mg tablet Take 1 tablet by mouth in the morning. 023 Active dulaglutide (TRULICITY) 0.75 mg/0.5 mL subcutaneous pen injector 024 Active gabapentin (NEURONTIN) 300 mg capsule TAKE 1 CAPSULE BY MOUTH THREE TIMES A DAY FOR 90 DAYS Active levonorgestreL (Mirena) intrauterine device Active losartan (Cozaar) 100 mg tablet Take 1 tablet (100 mg total) by mouth in the morning. 90 tablet 1 024 2024 Active lidocaine (LIDODERM) 5 % patch Apply 1 patch topically in the morning. Active ezetimibe (ZETIA) 10 mg tablet Take 1 tablet (10 mg total) by mouth in the morning. 90 tablet 3 Active Jardiance 10 mg tablet Take 1 tablet (10 mg total) by mouth in the morning. 90 tablet 3 Active spironolactone (ALDACTONE) 50 mg tablet Take 50 mg by mouth in the morning and 50 mg before bedtime. Active torsemide (DEMADEX) 20 mg tablet Take 2 tablets (40 mg total) by mouth in the morning. 180 tablet 3 Active hydrALAZINE (APRESOLINE) 50 mg tablet Take 2 tablets (100 mg total) by mouth in the morning and 2 tablets (100 mg total) before bedtime. 360 tablet 025 2024 Active carvediloL (COREG) 12.5 mg tablet TAKE 1 TABLET (12.5 MG TOTAL) BY MOUTH IN THE MORNING AND IN THE EVENING WITH MEALS 180 tablet 1 Active metoprolol succinate XL (TOPROL-XL) 100 mg 24 hr tablet Take 100 mg by mouth in the morning. 2024 Discontinued(D ose adjustment) hydrALAZINE (APRESOLINE) 50 mg tablet Take 2 tablets (100 mg total) by mouth in the morning and 2 tablets (100 mg total) before bedtime. 360 tablet 025 2024 Discontinued(R eorder) carvediloL (COREG) 12.5 mg tablet Take 1 tablet (12.5 mg total) by mouth in the morning and 1 tablet (12.5 mg total) in the evening. Take with meals. 60 tablet 1 025 2024 Discontinued Hospital, Clinic, or Other Facility Administered Medication Ordered Dose Route Frequency Start Date End Date Status inclisiran (LEQVIO) injection 284 mgIndications:Non-ST elevation myocardial infarction (NSTEMI) ([facility]) 284 mg subQ Every 6 months 05/21/2025 05/16/2026 Active Active Problems Problem Noted Date Diagnosed Date HLD (hyperlipidemia) 11/01/2024 Acute on chronic diastolic heart failure 025 Heart failure with mid-range ejection fraction ( HFmEF) 08/07/2024 Assessment & Plan (11/08/2024 12:26 PM EDT): Appears near euvolemia on exam. Weight has improved by 12 lbs since pre-infusion last week. Renal function today is relatively unchanged. Discussed with patient she should call to schedule sooner follow up, as despite diuresis Cr remains elevated from baseline. Despite diuresis she remains hypertensive. Will increase hydralazine form 75mg BID to 100mg BID. Will plan to continue other GDMT regimen including torsemide 20mg daily, chorthalidone 50mg daily, Jardiance 10mg daily, Losartan 100mg daily, Toprol 100mg daily, and Spironolactone 50mg BID. Will plan for her to return for close HF follow up in 2 weeks in the clinic setting, can adjust this pending any change in volume status. Reviewed with patient low sodium diet, 2L fluid restriction, and daily weights. If she notices a weight gain of 2-3/lbs in a day or 5lbs in week, instructed to call office. Renovascular hypertension 08/07/2024 History of myocardial infarction 05/12/2021 Encounters Date Type Department Care Team Description 02/28/2025 Results Follow-Up [facility] Department of Nephrology [address] [place] [address] Cam Jimenez PA Renal function panel, N-terminal pro B-type natriuetic peptide (NTproBNP) 02/26/2025 Orders Only [facility] Department of Cardiology [address] [place] [address] Cam Jimenez PA 02/23/2025 10:00 AM EDT - 02/23/2025 11:59 PM EDT Hospital Encounter [facility] Non[facility] Cardiology [address] [place] [address] Cam Jimenez PA Other chest pain Discharge Disposition: Home or Self Care 01/03/2025 3:00 PM EDT Office Visit [facility] Department of Cardiology [address] [place] [address] Stacey Martin, Cam Pink PA Other chest pain (Primary Dx); Heart failure with mid-range ejection fraction (HFmEF) (HCC); ASCVD (arteriosclerotic cardiovascular disease); Renovascular hypertension from Last 3 Months Immunizations Immunization Administration Dates Next Due COVID-19 mRNA (PFIZER) 11/10/2021 H1N1 Inj Preservative Free 05/06/2009 HPV, Quadrivalent 07/28/2007 Hepatitis B 11/25/2005 PPD Test 02/03/2010 Pneumococcal Polysaccharide PCV-23 08/24/2013 Td 05/07/2008,09/19/2005 Tdap 03/08/2013 Family History Medical History Relation Comments Diabetes Maternal Grandfather Diabetes Maternal Grandmother Kidney disease Maternal Grandmother Diabetes Mother's Sister Kidney disease Mother's Sister Diabetes Paternal Grandfather Diabetes Paternal Grandmother Diabetes Sister Relation Status Comments Maternal Grandfather Maternal Grandmother Mother's Sister Alive Paternal Grandfather Paternal Grandmother Sister Social History Tobacco Use Types Packs/Day Years Used Date Smoking Tobacco: Never Smokeless Tobacco: Never Tobacco Cessation:Counseling Given: Not Answered Alcohol Use Standard Drinks/Week Comments Yes 0 [...] No / Unsure 02/27/2025 10:42 AM EDT Last Filed Vital Signs Vital Sign Reading Time Taken Comments Blood Pressure 138/72 01/03/2025 2:52 PM EDT Pulse 80 01/03/2025 2:52 PM EDT Temperature - - Respiratory Rate 17 01/03/2025 2:52 PM EDT Oxygen Saturation 99% 01/03/2025 2:52 PM EDT Inhaled Oxygen Concentration - - Weight 122 kg (268 lb) 01/03/2025 2:52 PM EDT Height 162.6 cm (5' 4.02 ) 01/03/2025 2:52 PM ED T Body Mass Index 45.98 01/03/2025 2:52 PM EDT Plan of Treatment Upcoming Encounters Date Type Department Care Team (Late st Contact Info) Description 05/02/2025 11:00 AM EST Office Visit [facility] Cardiology [address] [place] [address] Randall Aguiar MD [address] [facility] [place], [place] [address] 05/03/2025 12:00 PM EST Office Visit [facility] of Nephrology [address] [place] [address] Cassidy Melendez MD [address] [facility] [place] [address] 06/06/2025 10:00 AM EST Nurse Only [facility]iology [address] [place] [address] Health Maintenance Due Date Last Done Comments Breast Cancer Screening 1980 HIV Screening 1980 Diabetes: Retinopathy Screening 1998 Hepatitis C Screening 1998 Zoster Vaccines (1 of 2) 10/27/1999 Hepatitis B Vaccines (2 of 3 - 19+ 3-dose series) 12/23/2005 11/25/2005 HPV Vaccines (2 - Risk 3-dose series) 08/25/2007 07/28/2007 Pneumococcal Vaccine: Pediatrics (0 to 5 Years) and At-Risk Patients (6 to 49 Years) (3 of 3 - PCV) 05/05/2017 05/05/2016, 08/24/2013, 08/24/2013 DTaP,Tdap,and Td Vaccines (2 - Td or Tdap) 03/08/2023 03/08/2013, 05/07/2008, 09/19/2005 Diabetes: Hemoglobin A1C 12/15/2024 06/16/2024 COVID-19 Vaccine ( season) 2025 11/10/2021, 03/27/2021, 03/06/2021 Influenza Vaccine (#1) 2025 , 05/08/2021, 03/08/2013, Additional history exists Diabetes: Kidney Health Evaluation 02/27/2026 02/27/2025 Pap Smear 10/17/2026 10/18/2023 Cervical Cancer Screening 10/17/2028 HPV/Cotest 10/17/2028 10/18/2023 Diabetes: Urine Microalbumin Discontinued 04/27/2024, 01/19/2024, 12/06/2023, Additional history exists Hepatitis A Vaccines Aged Out No long er eligible based on patient's age to complete this topic MMR Vaccines Aged Out No longer eligi ble based on patient's age to complete this topic Meningococcal Vaccine Aged Out No asmtia chepe eligible based on patient's age to complete this topic Procedures Procedure Name Priority Date/Time Associated Diagnosis Comments N-TERMINAL PRO B-TYPE NATRIURETIC PEPTIDE (NTPROBNP) Routine 02/27/2025 10:45 AM EDT Heart failure with mid-range ejection fraction (HFmEF) (HCC) ALDOSTERONE Routine 02/27/2025 10:45 AM EDT Renovascular hypertension Renal artery stenosis (HCC) Uncontrolled hypertension Nephrotic range proteinuria RENIN ACTIVITY Routine 02/27/2025 10:45 AM EDT Renovascular hypertension Renal artery stenosis (HCC) Uncontrolled hypertension Nephrotic range proteinuria RENAL FUNCTION PANEL Routine 02/27/2025 10:45 AM EDT Proteinuria, unspecified type Renal artery stenosis (HCC) Renovascular hypertension TRANSTHORACIC ECHO (TTE) COMPLETE W PRN DEFINITY Routine 02/23/2025 11:10 AM EDT Other chest pain ECG 12-LEAD Routine 01/03/2025 3:31 PM EDT Other chest pain MICROALBUMIN, URINE, RANDOM WITH CREATININE Routine 04/27/2024 12:30 PM EST Renovascular hypertension Renal artery stenosis (HCC) Uncontrolled hypertension Nephrotic range proteinuria from Last 3 Months or Most Recently Relevant to Health Maintenance Results * (ABNORMAL) N-terminal pro B-type natriuetic peptide (NTproBNP) (02/27/2025 10:45 AM EDT) NT-proBNP 4,008(H) <300 pg/mL 02/27/2025 1:29 PM EDT [facility] Comment: For patients presenting with clinical suspicion of heart failure, the Ages stratification below also provides interpretation for the results. NT-proBNP Age Group (Years) (pg/mL) Interpretation All <300 Negative: HF unlikely 18 to <50 >=300 to <450 [place]: Indeterminate 50 to 75 >=300 to <900 Consider other causes of >75 >=300 to <1800 NT-proBNP elevation 18 to 50 >450 50 to 75 >=900 Positive: HF likely >75 >=1800 Blood Venous blood specimen / Unknown Venipuncture / Unknown 02/27/2025 10:45 AM EDT 02/27/2025 10:45 AM EDT us Cam BACK LAB BLOOD ORDERABLES Final Resul t [facility] [address] [place] [address], [place] [phone] * Aldosterone (02/27/2025 10:45 AM EDT) Pathologist [facility] Aldosterone 7.6 ng/dL 03/01/2025 3:39 PM EDT [email or web address] Comment: INTERPRETIVE INFORMATION: Aldosterone, Serum Reference intervals for age 15 and older: Upright ......... 4.0 - 31.0 ng/dL Supine .......... Less than or equal to 16.0 ng/dL Unspecified ..... Less than or equal to 31.0 ng/dL Normal serum levels of aldosterone are dependent on the sodium intake and whether the patient is upright or supine. High sodium intake will tend to suppress serum aldosterone, whereas low sodium intake will elevate serum aldosterone. The reference intervals for serum aldosterone are based on normal sodium intake. Access complete set of age- and/or gender-specific reference intervals for this test in the [facility] Test Directory ([employer]). Performed By: [facility] [address] [place] [id number] Manufacturing Technician: Nikita Jarrett MD, PhD CLIA Number: [id number] Blood Venous blood specimen / Unknown Venipuncture / Unknown 02/27/2025 10:45 AM EDT 02/27/2025 10:45 AM EDT us Cassidy Melendez MD LAB BLOOD ORDERABLES N O STAT Final Result [email or web address] [address] [place] [address] * Renin activity (02/27/2025 10:45 AM EDT) Renin Activity 0.7 ng/mL/hr 03/02/2025 10:17 AM EDT [email or web address] Comment: INTERPRETIVE INFORMATION: Renin Activity Adult, Normal sodium diet: Supine ................. 0.2-1.6 ng/mL/hr Upright ................ 0.5-4.0 ng/mL/hr Children, Normal sodium diet, Supine: [place] (1-7 days) ..... 2.0-35.0 ng/mL/hr Cord blood ............. 4.0-32.0 ng/mL/hr 1-12 mos ............... 2.4-37.0 ng/mL/hr 13 mos-3 yrs ........... 1.7-11.2 ng/mL/hr 4-5 yrs ................ 1.0- 6.5 ng/mL/hr 6-10 yrs ............... 0.5- 5.9 ng/mL/hr 11-15 yrs .............. 0.5- 3.3 ng/mL/hr Children, normal sodium diet, Upright: 0-3 yrs ................ Not Available 4-5 yrs ................ Less than or equal to 15 ng/mL/hr 6-10 yrs ............... Less than or equal to 17 ng/mL/hr 11-15 yrs .............. Less than or equal to 16 ng/mL/hr Plasma renin activity measures enzyme ability to convert angiotensinogen to angiotensin I and is limited by the availability of angiotensinogen. Plasma renin activity is not an accurate indicator of enzyme activity when angiotensinogen is decreased. This test was developed and its performance characteristics determined by [facility]. It has not been cleared or approved by the [place] Food and Drug Administration. This test was performed in a CLIA certified laboratory and is intended for clinical purposes. Performed By: [facility] [address] [place] [id number] Manufacturing Technician: Nikita Jarrett MD, PhD CLIA Number: [id number] Blood Venous blood specimen / Unknown Venipuncture / Unknown 02/27/2025 10:45 AM EDT 02/27/2025 10:45 AM EDT Cassidy Melendez MD LAB BLOOD ORDERABLES N O STAT Final Result [address] [address] * (ABNORMAL) Renal function panel (02/27/2025 10:45 AM EDT) Sodium 138 137 - 144 mmol/L 02/27/2025 1:29 PM EDT [facility] Potassium 4.0 3.6 - 5.1 mmol/L 02/27/2025 1:29 PM EDT [facility] Chloride 101 100 - 111 mmol/L 02/27/2025 1:29 PM EDT [facility] CO2 27 23 - 32 mmol/L 02/27/2025 1:29 PM EDT [facility] Anion gap 10 3 - 11 mmol/L 02/27/2025 1:29 PM EDT [facility] BUN 30(H) 8 - 24 mg/dL 02/27/2025 1:29 PM EDT [facility] Creatinine 1.80(H) 0.60 - 1.20 mg/dL 02/27/2025 1:29 PM EDT [facility] eGFR 35(L) >60 mL/min/1. 73m*2 02/27/2025 1:29 PM EDT [facility] Comment: Calculation based on the Chronic Kidney Disease Epidemiology Collaboration (CKD-EPI) equation refit without adjustment for race. Chronic Kidney Disease less than 60 ml/min/1.73 m2 Kidney Failure less than 15 ml/min/1.73 m2 Age (Years) Average GFR 20 - 29 116 ml/min/1.73 m2 30 - 39 107 ml/min/1.73 m2 40 - 49 99 ml/min/1.73 m2 50 - 59 93 ml/min/1.73 m2 60 - 69 85 ml/min/1.73 m2 70 + 75 ml/min/1.73 m2 Pursuant to [place] Public Act 06-120(1)(b)(1). The 2020 CKD-EPI calculation used to estimate eGFR has only been validated for patients 18 years or older. Glucose 160 70 - 200 mg/dL 02/27/2025 1:29 PM EDT [facility] Comment: Normal fasting glucose 75-99 mg/dL Impaired fasting glucose 100 - 125 mg/dL Fasting glucose >125 mg/dL - provisional diagnosis of diabetes mellitus Random glucose >= 200 mg/dl is considered diagnostic for diabetes ADA Guidelines: Classification and Diagnosis of Diabetes: Standards of Medical Care in Diabetes - 2020, Diabetes Care 2020; S15-S33. Albumin 3.4(L) 3.8 - 5.3 g/dL 02/27/2025 1:29 PM EDT [facility] Calcium 9.4 8.4 - 10.2 mg/dL 02/27/2025 1:29 PM EDT [facility] PHOSPHORUS 3.9 2.4 - 4.8 mg/dL 02/27/2025 1:29 PM EDT [facility] Blood Venous blood specimen / Unknown Venipuncture / Unknown 02/27/2025 10:45 AM EDT 02/27/2025 10:45 AM EDT us Cassidy Melendez MD LAB BLOOD ORDERABLES F inal Result [facility] [address] [place] [address], [place] [phone] * Transthoracic echo (TTE) complete with PRN definity (02/23/2025 11:10 AM EDT) 02/23/2025 10:1 3 AM EDT [facility] - 02/25/2025 2:54 PM EDT [address] [address] [email or web address] Patient: Janice Davenport Transthoracic Echocardiogram 02/23/2025 : 1980 Age: 44 Gender: F Location: [facility] arcgis developer: Cam Jimenez Jason Ordering MD: Cam Jimenez Cell Tester: Michelle Christiansen Copies to: Reason for study: Pain, chest, unspecified (R07.9). STUDY CONCLUSIONS 1. Study data: BP during the study: 179/117 2. Left ventricle: The cavity size was at the upper limits of normal. Wall thickness was mildly increased. There was concentric hypertrophy. Systolic function was mildly reduced. The estimated ejection fraction was in the range of 45%. Hypokinesis of the basal-mid inferior myocardium. Features are consistent with a pseudonormal left ventricular filling pattern, with concomitant abnormal relaxation and increased filling pressure (grade 2 diastolic dysfunction). Doppler parameters are consistent with elevated mean left atrial filling pressure. 3. Aortic valve: There was mild regurgitation. 4. Mitral valve: There was mild regurgitation. 5. Left atrium: The atrium was mildly dilated. 6. Right atrium: The atrium was mildly dilated. 7. Pulmonary arteries: Systolic pressure was mildly increased. The peak pressure during systole by Doppler is 44mm Hg. 8. Pericardium, extracardiac: A trivial pericardial effusion is identified. COMPARISON: - Comparison study date: 05/23/2024 [place] pressure is mildly elevated on the current study. RECOMMENDATIONS: 1. Cardiac MRI. 2. Recommend further evaluation of left ventricular hypertrophy. STUDY DATA: STUDY STATUS: Elective. PROCEDURE: Transthoracic echocardiography was performed. This was a technically difficult study. Scanning was performed from the parasternal, apical, and subcostal acoustic windows. Intravenous contrast (Definity) was administered to opacify the LV. STUDY COMPLETION: There were no complications. There was no contrast reaction. Birthdate: Patient birthdate: 1980. Age: Patient is 44yr old. Sex: gender: female. Height: 162.6cm. Height: 64in. Weight: 121.6kg. Weight: 267.4lb. BMI: 46kg/m^2. BSA: 2.41m^2. Blood pressure: BP during the study: 179/117 Study date: Study date: 02/23/2025. Study time: 10:13 AM. STUDY FINDINGS LEFT VENTRICLE: The cavity size was at the upper limits of normal. Wall thickness was mildly increased. There was concentric hypertrophy. Systolic function was mildly reduced. The estimated ejection fraction was in the range of 45%. Regional wall motion abnormalities: Hypokinesis of the basal-midinferior myocardium. The transmitral flow pattern was normal. The deceleration time of the early transmitral flow velocity was normal. The pulmonary vein flow pattern was normal. The tissue Doppler parameters were normal. Features are consistent with a pseudonormal left ventricular filling pattern, with concomitant abnormal relaxation and increased filling pressure (grade 2 diastolic dysfunction). Doppler parameters are consistent with elevated mean left atrial filling pressure. AORTIC VALVE: Poorly visualized. The valve was trileaflet. The leaflets were mildly thickened. Cusp separation was normal. Doppler: Transvalvular velocity was within the normal range. There is no stenosis. There was mild regurgitation. The valve area by the velocity-time integral method is 2.4cm^2. The valve area index by the velocity-time integral method is 1.01cm^2/m^2. The valve area by the peak velocity method is 2.5cm^2. The valve area index by the peak velocity method is 1.04cm^2/m^2. The mean systolic gradient is 6mm Hg. The peak systolic gradient is 11mm Hg. AORTA: Aortic root: The aortic root was normal in size. Ascending aorta: The ascending aorta was normal in size. MITRAL VALVE: The leaflets were mildly thickened. Leaflet separation was normal. Doppler: Transvalvular velocity was within the normal range. There is no evidence for stenosis. There was mild regurgitation. The valve area (LVOT continuity) is 2.3cm^2. The valve area index (LVOT continuity) is 1cm^2/m^2. The mean diastolic gradient is 3mm Hg. The peak diastolic gradient is 8mm Hg. LEFT ATRIUM: The atrium was mildly dilated. RIGHT VENTRICLE: The cavity size was normal. Wall thickness is normal. Systolic function was normal. The tricuspid annular plane systolic excursion (MM) is 2.3cm. PULMONIC VALVE: Poorly visualized. TRICUSPID VALVE: Leaflet separation was normal. The peak pressure during systole by Doppler is 44mm Hg. Doppler: Transvalvular velocity was within the normal range. There is no evidence for stenosis. There was mild regurgitation. PULMONARY ARTERY PRESSURE: Systolic pressure was mildly increased. RIGHT ATRIUM: The atrium was mildly dilated. PERICARDIUM: A trivial pericardial effusion is identified. SYSTEMIC VEINS: Not well visualized. Measurements Left ventricle Value 05/23/2024 Ref FS, LAX 30 % 25 27 - 45 chord PW, ED (H) 1.2 cm 1.5 0.6 - 0.9 IVS/PW, ED 1.1 1.1 --------- EDV (H) 190 ml 148 46 - 106 ESV (H) 65 ml 63 14 - 42 EF 66 % 58 54 - 74 EDV/bsa (H) 79 ml/m^2 61 29 - 61 ESV/bsa (H) 27 ml/m^2 26 8 - 24 EDV, 2-p (H) 216 ml 143 46 - 106 ESV, 2-p (H) 107 ml 85 14 - 42 SV, 2-p 109 ml 58 --------- EDV/bsa, 2-p (H) 89 ml/m^2 59 29 - 61 ESV/bsa, 2-p (H) 44 ml/m^2 35 8 - 24 SV/bsa, 2-p 45.2 ml/m^2 23.8 --------- E', lat mari, (L) 6.3 cm/sec 6.2 >=10.0 TDI E/e', lat 22 20 --------- mari, TDI E', med mari, (L) 4.9 cm/sec 4.9 >=7.0 TDI E/e', med 28 25 --------- mari, TDI E', avg, TDI 5.6 cm/sec 5.6 --------- E/e', avg, (H) 25 22 <=14 TDI LVOT Value 05/23/2024 Ref Area 3.1 cm^2 3.5 --------- Diam 2.0 cm 2.1 --------- Peak pam, S 1.34 m/sec 1.18 --------- VTI, S 28.4 cm 22.1 --------- Peak grad, S 7 mm Hg 6 --------- SV 89 ml 77 --------- SV/bsa 37 ml/m^2 32 --------- Ventricular septum Value 05/23/2024 Ref IVS, ED (H) 1.3 cm 1.5 0.6 - 0.9 Right ventricle Value 05/23/2024 Ref TAPSE, MM 2.3 cm 2.0 1.7 - 3.1 Pressure, S 46 mm Hg --------- Left atrium Value 05/23/2024 Ref AP dim, ES (H) 4.3 cm 4.8 2.7 - 3.8 AP dim index 1.8 cm/m^2 2 1.5 - 2.3 Vol, ES, 1-p (H) 77 ml 78 22 - 52 A4C Vol/bsa, ES, 32 ml/m^2 32 11 - 40 1-p A4C Vol, ES, 1-p (H) 86 ml 57 22 - 52 A2C Vol/bsa, ES, 36 ml/m^2 24 13 - 40 1-p A2C Vol, ES, 2-p 85 ml 71 --------- Vol/bsa, ES, (H) 35 ml/m^2 29 16 - 34 2-p Aortic valve Value 05/23/2024 Ref Mean grad, S 6 mm Hg --------- Peak grad, S 11 mm Hg --------- GEETA, VTI 2.4 cm^2 --------- GEETA/bsa, VTI 1.01 cm^2/m^2 --------- GEETA, Vmax 2.5 cm^2 --------- GEETA/bsa, 1.04 cm^2/m^2 --------- Vmax Mitral valve Value 05/23/2024 Ref Peak E 1.38 m/sec 1.22 --------- Peak A 0.72 m/sec 1.25 --------- Mean v, D 0.83 m/sec --------- Decel time 174 ms 153 --------- Mean grad, D 3 mm Hg --------- Peak grad, D 8 mm Hg 6 --------- Peak E/A 1.9 1 --------- ratio A-VTI 38.2 cm --------- MVA, LVOT 2.3 cm^2 --------- cont MVA/bsa, 1 cm^2/m^2 --------- LVOT cont Pulmonic valve Value 05/23/2024 Ref Accel time 111 ms 106 --------- Aortic root Value 05/23/2024 Ref Root diam, 3.1 cm 3.2 <4.4 ED Pulmonary artery Value 05/23/2024 Ref Pressure, S 44 mm Hg --------- Legend: (L) and (H) kiersten values outside specified reference range. Reviewed and confirmed by Evelin Olivares [id number] Procedure Note Evelin Olivares MD - 02/25/2025 [place] [address] [email or web address] Patient: Janice Davenport Transthoracic Echocardiogram 02/23/2025 : 1980 Age: 44 Gender: F Location: [facility] arcgis developer: Cam Jimenez Jason Ordering MD: Cam Jimenez Cell Tester: Michelle Christiansen Copies to: Reason for study: Pain, chest, unspecified (R07.9). STUDY CONCLUSIONS 1. Study data: BP during the study: 179/117 2. Left ventricle: The cavity size was at the upper limits of normal.Wall thickness was mildly increased. There was concentric hypertrophy. Systolic function was mildly reduced. The estimated ejection fractionwas in the range of 45%. Hypokinesis of the basal-mid inferiormyocardium. Features are consistent with a pseudonormal left ventricular filling pattern, with concomitant abnormal relaxation and increased filling pressure (grade 2 diastolic dysfunction). Doppler parameters are consistent with elevated mean left atrial filling pressure. 3. Aortic valve: There was mild regurgitation. 4. Mitral valve: There was mild regurgitation. 5. Left atrium: The atrium was mildly dilated. 6. Right atrium: The atrium was mildly dilated. 7. Pulmonary arteries: Systolic pressure was mildly increased. The peak pressure during systole by Doppler is 44mm Hg. 8. Pericardium, extracardiac: A trivial pericardial effusion isidentified. COMPARISON: - Comparison study date: 05/23/2024 PA pressure is mildly elevated onthe current study. RECOMMENDATIONS: 1. Cardiac MRI. 2. Recommend further evaluation of left ventricular hypertrophy. STUDY DATA: STUDY STATUS: Elective. PROCEDURE: Transthoracic echocardiography was performed. This was a technically difficult study. Scanning was performed from the parasternal, apical, and subcostalacoustic windows. Intravenous contrast (Definity) was administered to opacify theLV. STUDY COMPLETION: There were no complications. There was no contrast reaction. Birthdate: Patient birthdate: 1980. Age: Patient is 44yr old. Sex: gender: female. Height: 162.6cm. Height: 64in. Weight: 121.6kg. Weight: 267.4lb. BMI: 46kg/m^2. BSA: 2.41m^2. Blood pressure: BP during the study: 179/117 Studydate: Study date: 02/23/2025. Study time: 10:13 AM. STUDY FINDINGS LEFT VENTRICLE: The cavity size was at the upper limits of normal. Wall thickness was mildly increased. There was concentric hypertrophy.Systolic function was mildly reduced. The estimated ejection fraction was in the range of 45%. Regional wall motion abnormalities: Hypokinesis of the basal-midinferior myocardium. The transmitral flow pattern was normal.The deceleration time of the early transmitral flow velocity was normal. The pulmonary vein flow pattern was normal. The tissue Doppler parameterswere normal. Features are consistent with a pseudonormal left ventricularfilling pattern, with concomitant abnormal relaxation and increased fillingpressure (grade 2 diastolic dysfunction). Doppler parameters are consistent with elevated mean left atrial filling pressure. AORTIC VALVE: Poorly visualized. The valve was trileaflet. Theleaflets were mildly thickened. Cusp separation was normal. Doppler:Transvalvular velocity was within the normal range. There is no stenosis. There wasmild regurgitation. The valve area by the velocity-time integral method is 2.4cm^2. The valve area index by the velocity-time integral method is 1.01cm^2/m^2. The valve area by the peak velocity method is 2.5cm^2. The valve area index by the peak velocity method is 1.04cm^2/m^2. Themean systolic gradient is 6mm Hg. The peak systolic gradient is 11mm Hg. AORTA: Aortic root: The aortic root was normal in size. Ascending aorta: The ascending aorta was normal in size. MITRAL VALVE: The leaflets were mildly thickened. Leaflet separationwas normal. Doppler: Transvalvular velocity was within the normal range.There is no evidence for stenosis. There was mild regurgitation. The valvearea (LVOT continuity) is 2.3cm^2. The valve area index (LVOT continuity) is 1cm^2/m^2. The mean diastolic gradient is 3mm Hg. The peak diastolic gradient is 8mm Hg. LEFT ATRIUM: The atrium was mildly dilated. RIGHT VENTRICLE: The cavity size was normal. Wall thickness is normal. Systolic function was normal. The tricuspid annular plane systolic excursion (MM) is 2.3cm. PULMONIC VALVE: Poorly visualized. TRICUSPID VALVE: Leaflet separation was normal. The peak pressureduring systole by Doppler is 44mm Hg. Doppler: Transvalvular velocity waswithin the normal range. There is no evidence for stenosis. There was mild regurgitation. PULMONARY ARTERY PRESSURE: Systolic pressure was mildly increased. RIGHT ATRIUM: The atrium was mildly dilated. PERICARDIUM: A trivial pericardial effusion is identified. SYSTEMIC VEINS: Not well visualized. Measurements Left ventricle Value 05/23/2024 Ref FS, LAX 30 % 25 27 - 45 chord PW, ED (H) 1.2 cm 1.5 0.6 - 0.9 IVS/PW, ED 1.1 1.1 --------- EDV (H) 190 ml 148 46 - 106 ESV (H) 65 ml 63 14 - 42 EF 66 % 58 54 - 74 EDV/bsa (H) 79 ml/m^2 61 29 - 61 ESV/bsa (H) 27 ml/m^2 26 8 - 24 EDV, 2-p (H) 216 ml 143 46 - 106 ESV, 2-p (H) 107 ml 85 14 - 42 SV, 2-p 109 ml 58 --------- EDV/bsa, 2-p (H) 89 ml/m^2 59 29 - 61 ESV/bsa, 2-p (H) 44 ml/m^2 35 8 - 24 SV/bsa, 2-p 45.2 ml/m^2 23.8 --------- E', lat mari, (L) 6.3 cm/sec 6.2 >=10.0 TDI E/e', lat 22 20 --------- mari, TDI E', med mari, (L) 4.9 cm/sec 4.9 >=7.0 TDI E/e', med 28 25 --------- mari, TDI E', avg, TDI 5.6 cm/sec 5.6 --------- E/e', avg, (H) 25 22 <=14 TDI LVOT Value 05/23/2024 Ref Area 3.1 cm^2 3.5 --------- Diam 2.0 cm 2.1 --------- Peak pam, S 1.34 m/sec 1.18 --------- VTI, S 28.4 cm 22.1 --------- Peak grad, S 7 mm Hg 6 --------- SV 89 ml 77 --------- SV/bsa 37 ml/m^2 32 --------- Ventricular septum Value 05/23/2024 Ref IVS, ED (H) 1.3 cm 1.5 0.6 - 0.9 Right ventricle Value 05/23/2024 Ref TAPSE, MM 2.3 cm 2.0 1.7 - 3.1 Pressure, S 46 mm Hg --------- Left atrium Value 05/23/2024 Ref AP dim, ES (H) 4.3 cm 4.8 2.7 - 3.8 AP dim index 1.8 cm/m^2 2 1.5 - 2.3 Vol, ES, 1-p (H) 77 ml 78 22 - 52 A4C Vol/bsa, ES, 32 ml/m^2 32 11 - 40 1-p A4C Vol, ES, 1-p (H) 86 ml 57 22 - 52 A2C Vol/bsa, ES, 36 ml/m^2 24 13 - 40 1-p A2C Vol, ES, 2-p 85 ml 71 --------- Vol/bsa, ES, (H) 35 ml/m^2 29 16 - 34 2-p Aortic valve Value 05/23/2024 Ref Mean grad, S 6 mm Hg --------- Peak grad, S 11 mm Hg --------- GEETA, VTI 2.4 cm^2 --------- GEETA/bsa, VTI 1.01 cm^2/m^2 --------- GEETA, Vmax 2.5 cm^2 --------- GEETA/bsa, 1.04 cm^2/m^2 --------- Vmax Mitral valve Value 05/23/2024 Ref Peak E 1.38 m/sec 1.22 --------- Peak A 0.72 m/sec 1.25 --------- Mean v, D 0.83 m/sec --------- Decel time 174 ms 153 --------- Mean grad, D 3 mm Hg --------- Peak grad, D 8 mm Hg 6 --------- Peak E/A 1.9 1 --------- ratio A-VTI 38.2 cm --------- MVA, LVOT 2.3 cm^2 --------- cont MVA/bsa, 1 cm^2/m^2 --------- LVOT cont Pulmonic valve Value 05/23/2024 Ref Accel time 111 ms 106 --------- Aortic root Value 05/23/2024 Ref Root diam, 3.1 cm 3.2 <4.4 ED Pulmonary artery Value 05/23/2024 Ref Pressure, S 44 mm Hg --------- Legend: (L) and (H) kiersten values outside specified reference range. Reviewed and confirmed by Evelin Olivares [id number] us Cam BACK CV ECHO PROCEDURES Final Result [facility] [address] [place] [id number], * ECG/EKG 12-lead (01/03/2025 3:31 PM EDT) 01/03/2025 3:31 PM EDT 01/04/2025 7:28 AM EDT Narrative [facility] ([facility]) - 01/04/2025 7:28 AM EDT Ventricular Rate: 67 BPM Atrial Rate: 67 BPM P-R Interval: 170 ms QRS Duration: 104 ms Q-T Interval: 426 ms QTC Calculation(Bazett): 450 ms P Gunpowder: 58 degrees R Gunpowder: 11 degrees T Gunpowder: 158 degrees Diagnosis: Normal sinus rhythm Left ventricular hypertrophy ( Pelican product ) T wave abnormality, consider inferolateral ischemia Abnormal ECG When compared with ECG of 03-May-2024 10:11, No significant change was found Confirmed by Jesu Morgan ([id number]) on 01/03/2025 4:09:55 PM Also confirmed by Jesu Morgan ([id number]), publications editor Garcia Hardin ([id number]) on 01/04/2025 7:28:45 AM Procedure Note Jesu Morgan MD - 01/04/2025 Ventricular Rate: 67 BPM Atrial Rate: 67 BPM P-R Interval: 170 ms QRS Duration: 104 ms Q-T Interval: 426 ms QTC Calculation(Bazett): 450 ms P Gunpowder: 58 degrees R Gunpowder: 11 degrees T Gunpowder: 158 degrees Diagnosis: Normal sinus rhythm Left ventricular hypertrophy ( Pelican product ) T wave abnormality, consider inferolateral ischemia Abnormal ECG When compared with ECG of 03-May-2024 10:11, No significant change was found Confirmed by Jesu Morgan ([id number]) on 01/03/2025 4:09:55 PM Also confirmed by Jesu Morgan ([id number]), publications editor Garcia Hardin ([id number]) on 01/04/2025 7:28:45 AM us Cam BACK ECG ORDERABLES Final Result [facility] ([place]USE) [place] [address], * (ABNORMAL) Microalbumin/creatinine ratio (04/27/2024 12:30 PM EST) Microalbumin/C reat Ratio 3,354(H) 2 - 20 mg/g Creat 04/27/2024 1:58 PM EST [facility] Urine Urine specimen / Unknown Non-blood Collection / Unknown 04/27/2024 12:30 PM EST 04/27/2024 1:04 PM EST Csasidy Melendez MD LAB URINE ORDERABLES F inal Result Performing Organization Address City/[facility]/ZIP Co de Phone Number [facility] [address] [place] [address], from Last 3 Months or Most Recently Relevant to Health Maintenance Insurance MEDICAID HUSKY D Care Teams Flight Test Mechanic Relationship Specialty Start Date End Date Pcp, MD Niki [address] [place] [address] PCP - General Internal Medicine 01/18/23
--- OUTSIDE RECORDS SUMMARY | 2025-03-23 10:19 | XMS_ITS | Encounter Summary ---
Author Organization [facility] Address [address] [place] [address] Care Team Providers Care Freezer Assistant Name Role Phone Pcp, No Primary Care Provider [facility] Primary Care Provider Nikki Mancilla DO Primary Care Provider Encounter Details Date Type Department Care Team (Late Contact Info) Description 11/03/2017 Scanned Document [address] [phone] Provider, Generic Social History Tobacco Use Types Packs/Day Years Used Date Smoking Tobacco: Never Assessed Comments Unknown Sex and Gender Information Value Date Recorded Sex Assigned at Not on file Legal Sex Female 11:10 AM EDT Gender Identity Not on file Sexual Orientation Not on file documented as of this encounter Plan of Treatment Upcoming Encounters Date Type Department Care Team (Late Contact Info) Description 06/05/2025 1:00 PM EST Office Visit [facility], [address] [phone] Kb Guerrero MD [address] [place] [phone] documented as of this encounter Visit Diagnoses Not on filedocumented in this encounter Care Teams Freezer Assistant Relationship Specialty Start Date End Date Pcp, No PCP - General General Medicine 10/15/16 05/02/18 [facility] [address] [place] [id number] PCP - General 05/03/18 09/22/21 Nikki Mancilla DO [address] [place] [address] PCP - General Internal Medicine 09/23/21 documented as of this encounter
--- OUTSIDE RECORDS SUMMARY | 2025-03-23 10:19 | XMS_ITS | Encounter Summary ---
Author Organization [facility] Address [address] [place] [id number] Care Team Providers Care Hair Clipper Power Name Role Phone Pcp, No MD Primary Care Provider Unavailabl e Reason for Referral * [facility] (Routine) - Closed Specialty Diagnoses / Procedures Referred By Dianelys t Referred To Contact Cardiology Diagnoses Heart failure with mid-range ejection fraction (HFmEF) (HCC) Gabi Rollins APRN [address] [place] [address] Phone: tel: fax: [facility] [address] [place] [address] Phone: tel: fax: Referral ID Status Reason Start Date Expiration Date Visits Re quested Visits Authorized [id number] Closed 11/01/2024 12/06/2025 1 1 Encounter Details Date Type Department Care Team (Late st Contact Info) Description 11/01/2024 Orders Only [facility] [address] [place] [phone] Gabi Rollins APRN [address] [place] [address] Heart failure with mid-range ejection fraction (HFmEF) (HCC) (Primary Dx) Social History Tobacco Use Types Packs/Day Years [...] suspected to have Coronavirus/COVID-19? No / Unsure 11/02/2024 10:07 AM EDT documented as of this encounter Plan of Treatment Upcoming Encounters Date Type Department Care Team (Late st Contact Info) Description 05/02/2025 11:00 AM EST Office Visit [facility] [address] [place] [address] Randall Aguiar MD [address] [place] [address] [place] [address] 05/03/2025 12:00 PM EST Office Visit [facility] [address] [place] [phone] Cassidy Melendez MD [address] [place] [address] [place] [address] 06/06/2025 10:00 AM EST Nurse Only [facility] [address] [place] [address] Scheduled Referrals Name Type Priority Associated Diagnoses Order Schedule Referral for OP Heart Failure Infusion Outpatient Referral Routine Heart failure with mid-range ejection fraction (HFmEF) (HCC) 1 Occurrences starting 11/01/2024 until 05/04/2025 documented as of this encounter Visit Diagnoses Diagnosis Heart failure with mid-range ejection fraction (HFmEF) (HCC)- Primary documented in this encounter Care Teams Hair Clipper Power Relationship Specialty Start Date End Date PcpNiki MD [address] [place] [phone] PCP - General Internal Medicine 01/18/23 documented as of this encounter
--- OUTSIDE RECORDS SUMMARY | 2025-03-23 10:19 | XMS_ITS | Data Portability ---
Author Organization [place] - [facility]'s [facility], [facility] Address [address] [place] [address] Assessment Encounter Date Assessment Date Assessment LastModified by Organization Details LastModified Time 10/18/2023 10/18/2023 ANNUAL VISIT PLAN: - Pap with HR HPV done - Labs per PCP. - Elevated BP: On multiple anti-HTN/diuretic s. 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 Patient asymptomatic. - Depression Screening Completed. PHQ=1. - Mammogram UTD. - Colonoscopy UTD. - d/w pt perimenopausal bleeding, postmenopausal bleeding - Eczema of breasts/nipples: Patient previously treated with steroid cream by breast surgeon. Will rx again but, advised patient to f/u with breast surgeon in the event symptoms worsen. Advised to call office if symptoms don't improve. - Contraception: Plan for Mirena IUD placement agurall Not available 10/18/2023 13:15:39 12/13/2023 12/13/2023 CONTRACEPTIVE PLAN: - Discussed the options with the patient ( i.e. barrier methods, hormonal contraceptives, IUDs). - Pt would like Mirena; inserted - Discussed with patient that it will not protect against STD's. - Encouraged the patient to tolerate any side effects for at least 6 months before she decides to change to another. - Discussed how to take prescription and to use back-up protection or abstain from intercourse for at least 2 weeks. - Pt aware that Mirena can cause irregularly irregular VB initially - Pt aware that there is a small chance the IUD can migrate - pt aware that if strings are not visible in the future, she may need an US to confirm placement - RTO 2 months agurall Not available 12/13/2023 12:07:15 05/23/2024 05/23/2024 Patient is a 43y o female presents for Mirena IUD string check agurall Not available 05/23/2024 10:48:30 Plan of Treatment Reminders Order Date Submit Date Provider Last Modified By Organization Details Last Modified Time Details Appointments None recorded. Lab urinalysis, dipstick 2023 024 [email or web address] In-Office Order, Internal Use Only DO Not Attach Compendium DO Not Attach Compendium, Do Not Delete/merge, [id number] 4 13:38:17 culture, urine 2023 024 [facility], [address] [place] [address], [id number] 4 09:26:54 test, urine 2023 024 [email or web address] In-Office Order, Internal Use Only DO Not Attach Compendium DO Not Attach Compendium, Do Not Delete/merge, [id number] 4 12:07:01 urinalysis, dipstick 2023 024 agurall In-Office Order, Internal Use Only DO Not Attach Compendium DO Not Attach Compendium, Do Not Delete/merge, [id number] 4 10:03:58 pap, IG + HPV 2023 024 [facility], [address] [place] [address], [id number] 4 08:23:41 bacterial vaginosis + vaginitis panel, vaginal 2021 022 [facility], [address] [place] [address], [id number] 2 13:29:28 test, urine 2021 022 [email or web address] In-Office Order, Internal Use Only DO Not Attach Compendium DO Not Attach Compendium, Do Not Delete/merge, [id number] 2 21:02:41 Referral None recorded. Procedures insertion, intrauterin e device (PROC) 2023 024 fhuric Not available 4 10:15:06 Surgeries None recorded. Imaging None recorded. Medication Orders metronidazo le 500 mg tablet 2023 024 [id number], [address] [place], [address], 4 10:51:12 Mirena 21 mcg/24 hr (up to 8 years) 52 mg intrauterin e device 2023 024 fhuric Not available 4 10:22:31 triamcinolo ne acetonide 0.1 % topical ointment 2023 024 [facility], [address] [place], [address], 4 10:04:04 metronidazo le 0.75 % (37.5 mg/5 gram) vaginal gel 2021 022 [facility], [address] [place], [address], 2 03:33:11 Cuca 0.35 mg tablet 2021 [facility] [address] [place], [address], 4 13:06:22 Patient TargetsNo targets recorded. Patient Instructions Encounter Date Encounter Id Patient Instructions Last Modified By Organization Details Last Modified Time 12/13/2023 [id number] intrauterine device (IUD) insertion: care instructions agurall Not available 12/13/2023 12:06:59 Reason for Referral None Reported. Results Created Date Observation Date Name Description Value Unit Range Abnormal Flag Note LastModifiedBy Organization Detail LastModifiedTime 01/30/20 22 01/29/2022 BMP NON FASTI NG BUN 15 mg/dL 7-17 Not Available [address], [place], [address], 01/29/2022 20:03:32 01/30/20 22 01/29/2022 BMP NON FASTI NG creatinine 0.9 mg/dL 0.5-1. 0 Not Available [address], [address], 01/29/2022 20:03:32 01/30/20 22 01/29/2022 BMP NON FASTI NG estimated GFR >60.0 >60.0 MDRD in mL/mi n/1.7 3 sq meter s. For Afric [employer] cans, multi ply by 1.21. Not Available [address], [address], 01/29/2022 20:03:32 01/30/20 22 01/29/2022 BMP NON FASTI NG sodium 134 mmol/ L 135-14 5 low Not Available [address], [address], 01/29/2022 20:03:32 01/30/20 22 01/29/2022 BMP NON FASTI NG potassium 3.6 mmol/ L 3.5-5. 1 Not Available [address], [address], 01/29/2022 20:03:32 01/30/20 22 01/29/2022 BMP NON FASTI NG chloride 100 mmol/ L 98-107 Not Available [address], [address], 01/29/2022 20:03:32 01/30/20 22 01/29/2022 BMP NON FASTI NG CO2 26 mmol/ L 24-32 Not Available [address], [address], 01/29/2022 20:03:32 01/30/20 22 01/29/2022 BMP NON FASTI NG anion gap 8 mmol/ L 5-14 Not Available [address], [address], 01/29/2022 20:03:32 01/30/20 22 01/29/2022 BMP NON FASTI NG random glucose 121 mg/dL 70-199 Not Available [address], [address], 01/29/2022 20:03:32 01/30/20 22 01/29/2022 BMP NON FASTI NG calcium 9.5 mg/dL 8.4-10 .2 Perfo rmed at [facility] [address] [place] [address] [place] [address] , Allis on M. Chuck mata MD [employer] CLIA [id number] CL 0623 Not Available [address], [address], 01/29/2022 20:03:32 01/30/20 22 01/29/2022 CBC WBC 12.3 K/uL 4.0-10 .5 high Not Available [address], [address], 01/29/2022 20:13:12 01/30/20 22 01/29/2022 CBC RBC 4.51 M/uL 4.2-5. 4 Not Available [address], [address], 01/29/2022 20:13:12 01/30/20 22 01/29/2022 CBC HGB 11.7 g/dL 12.5-1 6.0 low Not Available [address], [address], 01/29/2022 20:13:12 01/30/20 22 01/29/2022 CBC HCT 36.0 % 37-47 low Not Available [address], [address], 01/29/2022 20:13:12 01/30/20 22 01/29/2022 CBC MCV 79.8 fL 78-100 Not Available [address], [address], 01/29/2022 20:13:12 01/30/20 22 01/29/2022 CBC MCH 25.9 pg 25-33 Not Available [address], [address], 01/29/2022 20:13:12 01/30/20 22 01/29/2022 CBC MCHC 32.4 g/dL 32-36 Not Available [address], [address], 01/29/2022 20:13:12 01/30/20 22 01/29/2022 CBC RDW 14.5 % 12.1-1 6.2 Not Available [address], [address], 01/29/2022 20:13:12 01/30/20 22 01/29/2022 CBC plt 339 K/uL 150-45 0 Not Available [address], [address], 01/29/2022 20:13:12 01/30/20 22 01/29/2022 CBC MPV 9.7 fL 7.4-11 .4 Not Available [address], [address], 01/29/2022 20:13:12 01/30/20 22 01/29/2022 CBC differential type AUTOMA TRANG Not Available [address], [address], 01/29/2022 20:13:12 01/30/20 22 01/29/2022 CBC neutro 60.4 % 44-74 Not Available [address] [place], [address], 01/29/2022 20:13:12 01/30/20 22 01/29/2022 CBC lymph 27.0 % 20-48 Not Available [address], [address], 01/29/2022 20:13:12 01/30/20 22 01/29/2022 CBC mono 10.8 % 2-12 Not Available [address], [address], 01/29/2022 20:13:12 01/30/20 22 01/29/2022 CBC eosin 1.0 % 0-6 Not Available [address], [address], 01/29/2022 20:13:12 01/30/20 22 01/29/2022 CBC baso 0.8 % 0-2 Not Available [address], [address], 01/29/2022 20:13:12 01/30/20 22 01/29/[address], abs 7.4 K/uL 1.8-7. 8 Not Available [address], [address], 01/29/2022 20:13:12 01/30/20 22 01/29/[address], abs 3.3 K/uL 1.0-3. 2 high Not Available [address], [address], 01/29/2022 20:13:12 01/30/20 22 01/29/[address], abs 1.3 K/uL 0.0-0. 8 high Not Available [address], [address], 01/29/2022 20:13:12 01/30/20 22 01/29/[address], abs 0.1 K/uL 0.0-0. 5 Not Available [address], [address], 01/29/2022 20:13:12 01/30/20 22 01/29/[address], abs 0.1 K/uL 0.0-0. 2 Perfo [facility]med at [facility] [address] [place] [address] [place] [address] , Allis on M. Chuck mata MD [facility] CLIA [id number] CL 0623 Not Available [address], [address], 01/29/2022 20:13:12 01/30/20 22 01/29/2022 TYPE AND SCREE N ABO/Rh B POSITI VE Not Available [address], [address], 01/29/2022 22:01:54 01/30/20 22 01/29/2022 TYPE AND SCREE N antibody screen NEGATI VE Not Available [address], [address], 01/29/2022 22:01:54 01/30/20 22 01/29/2022 TYPE AND SCREE N bb comment chart Testi ng perfo rmed at [facility], [address] [place] [address] , Allis on Chuck mata MD Medic al [facility] tor, CLIA [id number] CL062 3 Not Available [address], [address], 01/29/2022 22:01:54 02/13/20 22 02/12/2022 VAGIN ITIS PROFI LE gardnerella Positi ve negati ve abnormal Not Available [facility] [address] [place], [address] 02/13/2022 13:42:25 02/13/20 22 02/12/2022 VAGIN ITIS PROFI LE trichomonas Negati ve negati ve Not Available [facility] [address] [place], [address] 02/13/2022 13:42:25 02/13/20 22 02/12/2022 VAGIN ITIS PROFI LE celina Negati ve negati ve Not Available [facility] [address] [place] [address], [address] 02/13/2022 13:42:25 02/20/20 22 02/19/2022 pregn loyda test, urine Result negati ve Not Available In-Office Order Internal Use Only DO Not Attach Compendium DO Not Attach Compendium, Do Not Delete/merge, [id number] 02/19/2022 09:56:17 02/27/20 22 02/26/2022 VAGIN ITIS PROFI LE gardnerella Positi ve negati ve abnormal Not Available [facility] [address] [place] [address], [address] 02/27/2022 13:29:28 02/27/20 22 02/26/2022 VAGIN ITIS PROFI LE trichomonas Negati ve negati ve Not Available [facility] [address] [place] [address], [address] 02/27/2022 13:29:28 02/27/20 22 02/26/2022 VAGIN ITIS PROFI LE celina Negati ve negati ve Not Available [facility] [address] [place] [address], [id number] 02/27/2022 13:29:28 10/18/19 24 10/18/2023 HPV MRNA E6/E7 HPV MRNA E6/E7 Negati ve negati ve APTIM A HPV assay detec ts 14 high risk HPV types (HPV 16,18 ,31,3 3,35, 39,45 ,51,5 2,56, 58,59 ,66,6 8). The assay is FDA appro jama for testi ng ThinP rep liqui d Pap vials but not FDA appro jama for detec ting HPV in SureP ath liqui d Pap speci mens. In-ho use valid ation has shown the assay can detec t all HPV types [facility] Not Available [facility] [address] [place], [address] 10/25/2023 08:23:39 10/18/19 24 10/18/2023 THINP REP PAP TEST (IMAG ER), HPV SCREE N, REFLE X HPV 16,18 /45 report Report Final Gynec ologi jerome Cytol ogy Repor t ----- ----- ----- ----- ----- ----- ----- ----- ----- ----- ----- ----- ThinP rep Pap Test, HPV Scree n, Refle x HPV Genot ype SPECI MEN ADEQU ACY: SATIS FACTO RY FOR EVALU ATION ; ENDOC ERVIC AL/TR ANSFO RMATI ON ZONE COMPO NENT PRESE NT. INTER PRETA TION: NEGAT BEAN FOR INTRA EPITH ELIAL LESDALJIT Becerra OR GABY MCDANIEL . Elect vianca Baca d: Flavio Cedillo, [place]( CP) Elect vianca Baca d: Shayna Locke ----- ----- ----- ----- ----- ----- ----- ----- ----- ----- ----- ----- CLINI JEROME INFOR MATIO N: LMP: NG Clini jerome Histo ry: NG Biops y Date: NG Speci men Sourc e: Cervi jerome Previ ous Pap Date: NG HPV RESUL TS: HPV mRNA E6/E7 [id number] Appro jama: 10/18 Negat bean REF RANGE : Negat bean CPT Codes : 67428 ICD Codes : Z12.4 Not Available [facility] [address] [place], [address] 10/25/2023 08:23:41 10/18/19 24 10/18/2023 urina lysis , dipst ick Interpretati on negati ve Not Available In-Office Order Internal Use Only DO Not Attach Compendium DO Not Attach Compendium, Do Not Delete/merge, [id number] 10/13/2023 11:50:19 12/13/19 24 12/13/2023 pregn loyda test, urine Result negati ve Not Available In-Office Order Internal Use Only DO Not Attach Compendium DO Not Attach Compendium, Do Not Delete/merge, [id number] 12/09/2023 10:07:26 05/23/20 24 05/23/2024 URINE CULTU RE urine source URINE, RANDOM Not Available [facility] [address] [place], [address] 05/25/2024 09:26:54 05/23/20 24 05/23/2024 URINE CULTU RE micro culture result abnormal Mixed , non-G BS, genit al shannon isola trang. Bacte lanette is not indic ative of a urina ry tract infec tion. No furth er ident ifica tion (incl uding susce ptibi lity) is warra nted on this speci men. If clini stephen indic ated, recol lect a clean -catc h, mid-s tream urine , minim izing conta minat ion, and trans johnathon immed iatel y to a urine cultu re trans port tube. NOTE: For urine cultu re speci mens not submi tted in espana top tubes , due to suppl y chain limit s, the labor atory is tempo raril y perfo rming urine cultu res from FDA appro jama prese rvati ve tubes that have not been valid ated, as well as from refri gerat ed steri le urine colle ction cups that do not conta in a prese rvati ve. Cultu re of unpre serve d urine may produ ce false ly eleva trang bacte rial count s. Not Available [facility] [address] [place], [address] 05/25/2024 09:26:54 05/23/20 24 05/23/2024 urina lysis , dipst ick Interpretati on positi ve Not Available In-Office Order Internal Use Only DO Not Attach Compendium DO Not Attach Compendium, Do Not Delete/merge, [id number] 05/23/2024 10:27:06 05/23/20 24 05/23/2024 urina lysis , dipst ick Leukocytes Small: +1 Not Available In-Office Order Internal Use Only DO Not Attach Compendium DO Not Attach Compendium, Do Not Delete/merge, [id number] 05/23/2024 10:27:05/23/20 24 05/23/2024 urina lysis , dipst ick Nitrite negati ve Not Available In-Office Order Internal Use Only DO Not Attach Compendium DO Not Attach Compendium, Do Not Delete/merge, [id number] 05/23/2024 10:27:05/23/20 24 05/23/2024 urina lysis , dipst ick Urobilinogen Normal : 0.2 mg/dl Not Available In-Office Order Internal Use Only DO Not Attach Compendium DO Not Attach Compendium, Do Not Delete/merge, [id number] 05/23/2024 10:27:05/23/20 24 05/23/2024 urina lysis , dipst ick Protein +4: 2000 or more Not Available In-Office Order Internal Use Only DO Not Attach Compendium DO Not Attach Compendium, Do Not Delete/merge, [id number] 05/23/2024 10:27:05/23/20 24 05/23/2024 urina lysis , dipst ick pH 6.5 Not Available In-Office Order Internal Use Only DO Not Attach Compendium DO Not Attach Compendium, Do Not Delete/merge, [id number] 05/23/2024 10:27:05/23/20 24 05/23/2024 urina lysis , dipst ick Blood Negati ve Not Available In-Office Order Internal Use Only DO Not Attach Compendium DO Not Attach Compendium, Do Not Delete/merge, [id number] 05/23/2024 10:27:05/23/20 24 05/23/2024 urina lysis , dipst ick Specific [place] 1.005 Not Available In-Off ice Order Internal Use Only DO Not Attach Compendium DO Not Attach Compendium, Do Not Delete/merge, [id number] 05/23/2024 10:27:05/23/20 24 05/23/2024 urina lysis , dipst ick Ketone Negati ve Not Available In-Office Order Internal Use Only DO Not Attach Compendium DO Not Attach Compendium, Do Not Delete/merge, [id number] 05/23/2024 10:27:06 05/23/20 24 05/23/2024 urina lysis , dipst ick Bilirubin Negati ve Not Available In-Office Order Internal Use Only DO Not Attach Compendium DO Not Attach Compendium, Do Not Delete/merge, [id number] 05/23/2024 10:27:06 05/23/20 24 05/23/2024 urina lysis , dipst ick Glucose Negati ve Not Available In-Office Order Internal Use Only DO Not Attach Compendium DO Not Attach Compendium, Do Not Delete/merge, [id number] 05/23/2024 10:27:06 01/23/20 22 01/22/2022 US, obste tric No observ ation record ed. [address], [address], 01/28/2022 10:00:20 03/04/20 22 03/04/2022 US, pelvi s, compl ete No observ ation record ed. [facility] [address] [place], [address], 03/06/2022 15:00:45 Result Notes None recorded. Problems Name Problem SNOMED Code Status Onset Date Resolution Date Notes Provider Name and Address Organization Details Recorded Time Hypertensiv e disorder 32673880 Active Minal Ku, DO [address], [address] [facility], [place], [address], [facility] 2 22:02:59 High risk 80770754 Completed Minal Ku, DO [address], [address] Floor, [place], [address], [facility] 2 22:02:59 Asthma 914649290 Completed Minal Ku, DO [address], [place], [address], [facility] 2 22:02:59 Advanced maternal age 459385714 Completed Minal Ku, DO [address] [place], [address], [facility] 2 22:02:59 Old myocardial infarction 2545145 Completed Minal Ku, DO [address], [address] [place] [address], [place], [address], [facility] 2 22:02:59 Hypothyroid ism 58768795 Completed Minal Ku, DO [address], [address] [place] [address], [place], [address], [facility] 2 22:02:59 Hypertensiv e disorder 23834302 Completed Minal Ku, DO [address], [address] [place] [address], [address], [facility] 2 22:02:59 Type 2 diabetes mellitus 30643890 Completed Minal Ku, DO [address], [address] [place] [address], [address], [facility] 2 22:02:59 Morbid obesity 068405455 Completed Minal Ku, DO [address], [address] [place] [address], [address], [facility] 2 22:02:59 58836000 Completed 201801/20/2019 Minal Ku, DO [address], [address] [place] [address], [address], [facility] 9 11:57:37 Problem Notes None recorded. Procedures Surgical History Date Name Laterality Status Provider Name and Address Organization Details Recorded Time 12/13/19 IUD Insert completed MD Armando FLORES [address], [address] [place] [address], [phone], [facility] 12/13/2023 12:06:27 06/21/19 Date of Last Mammogram completed RONALD BRAVO MD [address], [address] [place] [address], [phone], [facility] 10/18/2023 13:14:14 01/31/20 22 Dilation & suction completed Minal Ku, DO [address], [address] [place] [address], [place], [address], [facility] 01/30/2022 09:43:30 12/20/19 21 Date of Last Pap Smear completed RONALD BRAVO MD [address] [facility] [place] [address] [place] [address], [place], [address], [facility] 01/12/2022 12:42:10 02/04/20 19 Dilation and Curettage completed Minal Ku, DO [facility], [address] [place] [address], [place], [address], [facility] 01/30/2022 09:43:38 11/20/19 18 Appendectomy completed Minal Ku, DO [address] [facility], [address] [place] [address], [place], [address] [place] [address], [facility] 02/14/2019 09:36:37 06/21/19 15 excision of cyst of breast completed Minal Ku, DO [address], [address] [place] [address], [place], [address], [facility] 01/20/2019 11:51:45 06/21/18 97 tonsillectomy completed Minal Ku, DO [address] [facility], [address] [place] [address], [place], [address], [facility] 01/20/2019 11:51:34 Imaging Results None recorded. Procedure Notes None recorded. Medical Equipment None Reported. Allergies Allergen ID Allergen Name Allergen Category Reaction Reaction Severity Criticality Documentation Date Start Date Code Code System Note Provider Name and Address Organization Details Recorded Time [id number] shellfish derived food,medi cation anaphylax is Not available Not available 01/18/2019 JAZZY TREJO APRN [address] [facility], [address] [place] [address], [place], [address], [facility] 9 20:51:59 Medications Name Sig Start Date Stop Date Status Note LastModified by Organization Details LastModified Time losartan 50 mg tablet TAKE 1 TABLET BY MOUTH EVERY DAY 01/12 completed Not Available Not Available Not Available amoxicillin 500 mg capsule TAKE 1 CAPSULE BY MOUTH EVERY 8 HOURS 05/23 completed Not Available Not Available Not Available Mirena 21 mcg/24 hr (up to 8 years) 52 mg intrauterin e device Take 1 device by intrauter ine route. 2023 active tu043 nj, 6 Not Available Not Available Not Available promethazin e-DM 6.25 mg-15 mg/5 mL oral syrup TAKE 5 ML BY MOUTH EVERY 4 TO 6 HOURS FOR 5 DAYS active Not Available Not Available No t Available atorvastati n 80 mg tablet TAKE 1 TABLET BY MOUTH AT BEDTIME FOR 30 DAYS CHOLESTER OL-LOWERI NG MEDICATIO N active Not Available Not Available No t Available prednisone 10 mg tablet 10/17 completed Not Available Not Available Not Available fluconazole 150 mg tablet PLEASE SEE ATTACHED FOR DETAILED DIRECTION S 10/17 completed Not Available Not Available Not Available atenolol 100 mg tablet active Not Available Not Available Not Available FreeStyle Lancets 28 gauge CHECK BLOOD GLUCOSE 3 TIMES A DAY WHEN CGM FAILURE. active Not Available Not Available No t Available metronidazo le 0.75 % (37.5 mg/5 gram) vaginal gel PLEASE SEE ATTACHED FOR DETAILED DIRECTION S active Not Available Not Available No t Available metoprolol succinate ER 100 mg tablet,exte nded release 24 hr TAKE 1 TABLET ORALLY DAILY active Not Available Not Available No t Available metronidazo le 500 mg tablet Take 1 tablet twice a day by oral route for 7 days. active Not Available Not Available No t Available clopidogrel 75 mg tablet TAKE 1 TABLET BY MOUTH EVERY DAY active Not Available Not Available No t Available chlorthalid one 50 mg tablet TAKE 1 TABLET BY MOUTH EVERY DAY active Not Available Not Available No t Available sulfamethox azole 800 mg-trimetho prim 160 mg tablet TAKE 1 TABLET BY MOUTH 2 (TWO) TIMES A DAY FOR 3 DOSES. 10/17 completed Not Available Not Available Not Available peg-electro lyte solution 420 gram oral solution TAKE DIRECTED FOR COLONOSCO PY/GI PROCEDURE . SEE ADMINISTR ATION INSTRUCTI ONS. 01/12 completed Not Available Not Available Not Available aspirin 81 mg tablet,dora yed release TAKE 1 TABLET BY MOUTH EVERY DAY active Not Available Not Available No t Available tramadol 50 mg tablet TAKE 1 TABLET ORALLY EVERY 6 HOURS NEEDED FOR SEVERE PAIN ON SCALE OF 7-10 01/12 completed Not Available Not Available Not Available triamcinolo ne acetonide 0.1 % topical cream 01/12 completed Not Available Not Available Not Available nystatin-tr iamcinolone 100,000 unit/gram-0 .1 % topical ointment APPLY TO AFFECTED AREA TWICE A DAY active Not Available Not Available No t Available oxycodone-a cetaminophe n 5 mg-325 mg tablet TAKE 1 TABLET BY MOUTH EVERY 4 HOURS NEEDED FOR PAIN 05/23 completed Not Available Not Available Not Available amlodipine 10 mg tablet 10 MG ORALLY DAILY active Not Available Not Available No t Available levothyroxi ne 50 mcg tablet 01/12 completed Not Available Not Available Not Available cephalexin 500 mg capsule TAKE 1 CAPSULE BY MOUTH 4 TIMES A DAY FOR 7 DAYS 01/12 completed Not Available Not Available Not Available hydralazine 100 mg tablet TAKE 1 TABLET BY MOUTH TWICE A DAY FOR 30 DAYS 90 DAYS active Not Available Not Available No t Available triamcinolo ne acetonide 0.1 % topical ointment PLEASE SEE ATTACHED FOR DETAILED DIRECTION S active Not Available Not Available No t Available lidocaine 5 % topical patch APPLY 1 PATCH DAILY EXTERNALL Y AND REMOVE AFTER 12 HOURS FOR 30 DAYS. active Not Available Not Available No t Available FML Forte 0.25 % eye drops,suspe nsion INSTILL 1 DROP INTO LEFT EYE 4 TIMES A DAY 01/12 completed Not Available Not Available Not Available metoprolol tartrate 50 mg tablet TAKE 1 & 1/2 TABLET BY MOUTH TWICE A DAY 01/12 completed Not Available Not Available Not Available lisinopril 30 mg tablet 01/12 completed Not Available Not Available Not Available gabapentin 300 mg capsule TAKE 1 CAPSULE BY MOUTH THREE TIMES A DAY FOR 90 DAYS active Not Available Not Available No t Available montelukast 10 mg tablet 01/12 completed Not Available Not Available Not Available hydralazine 50 mg tablet TAKE 1 TABLET BY MOUTH TWICE A DAY active Not Available Not Available No t Available hydrochloro thiazide 25 mg tablet TAKE 1 TABLET BY MOUTH EVERY DAY IN THE MORNING FOR 30 DAYS active Not Available Not Available No t Available mupirocin 2 % topical ointment 01/12 completed Not Available Not Available Not Available furosemide 20 mg tablet TAKE 1 TABLET (20 MG TOTAL) BY MOUTH IN THE MORNING active Not Available Not Available No t Available gabapentin 100 mg capsule TAKE 1 CAPSULE BY MOUTH THREE TIMES A DAY 12/12 completed Not Available Not Available Not Available epinephrine 0.3 mg/0.3 mL injection, auto-inject or 0.3 MG INTRAMUSC ULARLY ONCE 1 DAYS active Not Available Not Available No t Available ibuprofen 600 mg tablet TAKE 1 TABLET BY MOUTH FOUR TIMES A DAY NEEDED 05/23 completed Not Available Not Available Not Available polyethylen e glycol 3350 17 gram/dose oral powder DISSOLVE 1 CAPFUL (17GM) INTO WATER AND DRINK EVERY DAY 12/12 completed Not Available Not Available Not Available norethindro ne (contracept bean) 0.35 mg tablet TAKE 1 TABLET BY MOUTH EVERY DAY 10/17 completed Not Available Not Available Not Available ondansetron 4 mg disintegrat ing tablet DISSOLVE 1 TABLET BY MOUTH EVERY 8 HOURS NEEDED FOR NAUSEA & VOMITING. active Not Available Not Available No t Available losartan 100 mg tablet TAKE 1 TABLET BY MOUTH EVERY DAY FOR 90 DAYS active Not Available Not Available No t Available fluticasone propionate 50 mcg/actuati on nasal spray,suspe nsion 01/12 completed Not Available Not Available Not Available spironolact one 50 mg tablet TAKE 0.5 TABLETS (25 MG TOTAL) BY MOUTH IN THE MORNING AND 0.5 TABLETS (25 MG TOTAL) BEFORE BEDTIME. active Not Available Not Available No t Available Ventolin HFA 90 mcg/actuati on aerosol inhaler INHALE 2 PUFFS EVERY 4 HOURS NEEDED active Not Available Not Available No t Available tobramycin 0.3 %-dexametha sone 0.1 % eye drops,suspe nsion PUT 1 DROP 4 TIMES A DAY INTO RIGHT EYE FOR 7 DAYS 12/12 completed Not Available Not Available Not Available oxycodone 5 mg tablet 01/12 completed Not Available Not Available Not Available Antifungal (miconazole ) 2 % topical cream 01/12 completed Not Available Not Available Not Available ezetimibe 10 mg tablet TAKE 1 TABLET BY MOUTH EVERY DAY active Not Available Not Available No t Available Vitafol-OB 65 mg-1 mg tablet 01/12 completed Not Available Not Available Not Available cyclobenzap rine 5 mg tablet TAKE 2 TABLETS (10 MG TOTAL) BY MOUTH UP TO 3 TIMES DAILY NEEDED FOR MUSCLE SPASM. active Not Available Not Available No t Available nitrofurant oin monohydrate /macrocryst als 100 mg capsule TAKE 1 CAPSULE BY MOUTH TWICE A DAY FOR 5 DAYS 10/17 completed Not Available Not Available Not Available BD Ultra-Fine Mini Pen Needle 31 gauge x 3/16 active Not Available Not Available Not Available Flovent HFA 110 mcg/actuati on aerosol inhaler 01/12 completed Not Available Not Available Not Available chlorhexidi ne gluconate 0.12 % mouthwash RINSE MOUTH WITH 15ML (1 CAPFUL) FOR 30 SECONDS IN MORNING AND EVENING AFTER BRUSHING, THEN SPIT active Not Available Not Available No t Available BD Ultra-Fine Short Pen Needle 31 gauge x 5/16 USE TO INJECT 4 TIMES A DAY WITH INSULIN active Not Available Not Available No t Available FreeStyle Lite Meter kit FOR CHECKING BG 4X/DAY E11.65 active Not Available Not Available No t Available FreeStyle Lite Strips USE TO CHECK BLOOD SUGAR THREE TIMES A DAY, E11.9 active Not Available Not Available No t Available Lantus Solostar U-100 Insulin 100 unit/mL (3 mL) subcutaneou s pen 01/12 completed Not Available Not Available Not Available levocetiriz ine 5 mg tablet 01/12 completed Not Available Not Available Not Available Humalog KwikPen (U-100) Insulin 100 unit/mL subcutaneou s TAKE DIRECTED UP TO 30UNITS PER SLIDING SCALE THREE TIMES DAILY BEFORE MEALS active Not Available Not Available No t Available Jardiance 10 mg tablet active Not Available Not Available Not Available Trulicity 0.75 mg/0.5 mL subcutaneou s pen injector TAKE TWO OF THE 0.5 ML (0.75MG) SUBCUTANE OUS INJECTION EVERY WEEK (TO TOTAL 1.5MG WEEKLY) active Not Available Not Available No t Available Tresiba FlexTouch U-200 insulin 200 unit/mL (3 mL) subcutaneou s pen INJECT 15 UNITS SUBCUTANE OUSLY DAILY... ROTATE INJECTION SITES active Not Available Not Available No t Available Linzess 72 mcg capsule TAKE 1 CAPSULE BY MOUTH EVERY MORNING BEFORE BREAKFAST . active Not Available Not Available No t Available FreeStyle Patrick 2 Sensor kit USE TO SCAN FOR BLOOD SUGAR AT LEAST 4 TIMES DAILY.. CHANGE EVERY 14 DAYS. active Not Available Not Available No t Available [employer] Patrick 2 [place] USE TO SCAN BLOOD SUGAR AT LEAST 4 TIMES DAILY. E11.65 active Not Available Not Available No t Available Vitals Date Recorded Body height Body mass index (BMI) Body weight Systolic And Diastolic Provider Name and Address Organization Details Last Updated DateTime 10/18/2023 162.56 cm 44.6 kg/m2 637532.02 g 172/100 mm[Hg] Consuelo De Santiago [facility] 10/18/2023 09:37:53 Date Recorded Body height Body mass index (BMI) Body weight Systolic And Diastolic Provider Name and Address Organization Details Last Updated DateTime 12/13/2023 162.56 cm 44.1 kg/m2 795482.24 g 137/81 mm[Hg] Malachirira De Santiago [facility] 12/13/2023 10:37:43 Date Recorded Body height Body mass index (BMI) Body weight Systolic And Diastolic Provider Name and Address Organization Details Last Updated DateTime 02/19/2022 163.83 cm 45 kg/m2 394954.57 g 134/82 mm[Hg] Celio [facility] 02/19/2022 09:35:13 Date Recorded Body height Systolic And Diastolic Provider Name and Address Organization Details Last Updated DateTime 02/26/2022 163.83 cm 126/80 mm[Hg] Celio [facility] 02/26/2022 15:24:43 Date Recorded Body height Body mass index (BMI) Body weight Systolic And Diastolic Provider Name and Address Organization Details Last Updated DateTime 05/23/2024 162.56 cm 45.5 kg/m2 419029.98 g 137/78 mm[Hg] [facility] 05/23/2024 10:26:41 Social History Question Answer Notes LastModified by Organizat ion Details LastModified Time Tobacco Smoking Status Never Smoker JAZZY TREJO APRN [address] [facility] ([place], [place]), [address] Floor, [place], [address], [facility] 01/18/2019 20:55:38 Do You Have Any Children? Yes Information not available 01/12/2022 Does Your Partner Physically Hurt You Or Threaten To Hurt You? No Information not available 01/12/2022 Has Your Partner Forced You To Have Sex Or Perform Sex Acts When You Did Not Want To? No Information not available 01/12/2022 Does Your Partner Insult, Scream At Or Talk Down To You? No Information not available 01/12/2022 Does Your Partner Control You Or Any Part Of Your Life? No Information not available 01/12/2022 Are You Afraid Of Your Partner? No Information not available 01/12/2022 Drug Use? No Information no t available 01/18/2019 Do You Feel Safe At Home? Yes Information not available 01/18/2019 How Many Children Do You Have? 2 Information not available 01/18/2019 Do You Use Protection During Sex? Usually Information not available 01/12/2022 Are You Sexually Active? Yes Information not available 01/12/2022 Have You Recently Traveled Abroad? No Information not available 01/12/2022 Sex: Unknown Functional Status Question Answer Note LastModified by Organizat ion Details LastModified Time What is your level of alcohol consumption? Occasional socially Information not available 01/18/2019 Mental Status Question Answer Note LastModified by Organization D etails LastModified Time Do you feel stressed (tense, restless, nervous, or anxious, or unable to sleep at night)? [id number] Information not available 01/12/2022 Family History Relationship Description Onset Age of this Age Resolved Age Notes LastModified by Organization Details LastModified Time Maternal Grandmother Malignant neoplasm of ovary 40 Not available 2018 20:55:15 Notes:no family hx of breast , uterine or colon cancer Medical History Condition Response Heart Problems Y Thyroid Problems Y Diabetes Y Asthma Y Hypertension Y Gynecological History Statement/Question Response Date of Last Mammogram 06/21/2023 Flow Moderate Date of LMP 11/29/2023 IPV Screen Done 02/14/2019 [facility] Biopsy N STIs/STDs N PID N Cervical Cancer N BrCa gene tested? N Ovarian Cancer N Date of Last Colonoscopy Breast Cancer N Last HPV Result Negative Abnormal Pap N BrCa Positive N Breast Ultrasound N Leep N Sexual Orientation heterosexual HPV Vaccine Y Duration of Flow (days) 4 Endometriosis N Age at First Child 17 Fibroids N Uterine Cancer N Current Control Method IUD-Mirena Frequency of Cycle (Q days) 28 Mammogram Required? N Sexually Active? Y Sexual Problems? N Date of Last Pap Smear 12/19/2020 Obstetrics History GPAL:G 4 P 2 0 2 2 Type Value Full Term 2 Spontaneous 2 Living 2 Total 4 Immunizations Vaccine Type Date Status Note Provider Nam e and Address Organization Details Recorded Time COVID-19, mRNA, LNP-S, PF, 30 mcg/0.3 mL dose 03/06/2021 [facility]05 COVID-19, mRNA, LNP-S, PF, 30 mcg/0.3 mL dose 03/27/2021 [facility] 09:38:05 COVID-19, mRNA, LNP-S, PF, 30 mcg/0.3 mL dose 11/10/2021 completed Minal Bianchi DO [address] [facility] ([place], [place]), [address] Floor, [place], [address], [facility] 04/23/2022 06:52:43 Past Encounters Encounter ID Performer Location Encounter Start Date Encounter Closed Date Diagnosis/Indication Diagnosis SNOMED-CT Code Diagnosis ICD10 Code Diagnosis IMO Codes Diagnosis Note [id number] JAZZY TREJO APRN CWO1 [address] [facility] [address] [place] [address] 01/18/2019 12:56:26 01/18/2019 13:28:49 Urine test positive 396776597 Z32.01 - informatio n pack given - Reviewed warning signs - Take vitamins with at least 400mcg folic acid - Check first trimester labs, urine culture, and GC/Ch from urine at IOB - BMI >30: 1 hr GCT not needed - D/w pt diet, exercise, weight gain, sexual activity, visits. - Limit to 1 cup coffee per day - Reviewed risk factors and likely need to adjust htn meds. Reviewed s/s of preE and need to watch BP's closely. - dating/via bility u/s at [facility] - RTO for IOB in 2 weeks. Hypertensive disorder 38 571903 I10 - BP elevated in office today (150/94). States she ran out of her meds 2 days ago and just picked them up again today. - Reviewed importance of med compliance , especially during . - pt advised to restart her 81 mg ASA (previousl y told she could stop by PCP) [id number] Minal Bianchi DO CWO2 [address] [facility] SU[address] [facility] access hospital,[address] [place] [address] 02/14/2019 09:08:53 02/14/2019 09:41:23 test negative 709220584 Z32.02 Missed miscarriage 12921 004 O02.1 - pt doing well overall - d/w pt to try conceiving after at least one normal menses - d/w pt to continue PNV while she is trying to get - rec that pt optimize DM II, HTN and weight prior to getting - pt planning on using condoms for now [id number] RONALD BRAVO MD CWO5 [address] [place] [address] 01/12/2022 12:10:57 01/12/2022 14:09:18 test positive 620695517 Z32.01 Routine an tenatal care 273439741 Z34.90 High risk 4720 0007 O09.91 Gestation period, 8 weeks 58508517 Z3A.08 [id number] Minal Bianchi DO CWO2 [address] [facility] [address] Critical access hospital,[address] [place] [address] 02/12/2022 14:52:32 02/12/2022 15:07:15 Abnormal vaginal odor 26846762 N89.8 - check Affirm- perhaps related to the VB from the MAB Missed miscarriage 04079 004 O02.1 - pt doing well overall- s/p suction D&C 01/30/22- d/w pt to try conceiving after at least one normal menses - d/w pt to continue PNV while she is trying to get - rec that pt optimize DM II, HTN and weight prior to getting - pt would like to initiate contracept ion - will review at next appt- RTO 1 week - if still bleeding then, will need US [id number] Minal Bianchi, DO CWO5 [address] [place] [address] 02/19/2022 09:27:43 02/24/2022 13:39:44 Abnormal vaginal odor 63851881 N89.8 - 02/12/22 Affirm with Zoran a - better s/p Metronidaz ole Missed miscarriage 55916 004 O02.1 - pt doing well overall- s/p suction D&C 01/30/22- rec that pt optimize DM II, HTN and weight prior to getting Contracept ion care management 786007494 Z30.9 CONTRACEPT BEAN PLAN: - Discussed the options with the patient ( i.e. barrier methods, hormonal contracept zack, IUDs, permanent sterilizat ion). - Prescribed OCPs - progestero ne only, 3 month supply with 3 refills. - Risks of hormonal control reviewed including, but not limited to, thrombosis , embolism, pulmonary embolism, stroke, disability , sexual dysfunctio n and ; FH for thrombophi danya reviewed; pt understand s that these risks may be increased with smoking. - Discussed with patient that it will not protect against STD's. - Encouraged the patient to tolerate any side effects for at least 6 months before she decides to change to another. - Discussed how to take prescripti on and to use back-up protection or abstain from intercours e for at least 2 weeks. - d/w pt that should she forget any pills, she will need to use back-up protection or abstain from sex for 1-2 weeks and that her menses will be irregular for 1-2 months as she gets back on track with the medication Urine preg janie test negative 569490389 Z32.02 [id number] Trisha Stauffer, DO CWO2 [address] [facility], [address] [place] [address] 02/26/2022 15:21:03 02/26/2022 15:42:11 Abnormal uterine bleeding 9931732440 9100 N93.9 check TVUS @ [facility] Vaginitis 97827045 N76.0 Contracept ion care management 639990874 Z30.9 patient does not want more children, was considerin jules BTLHwver, her risks are high for GA due to h/o MITalked about mirena v vasectomy, patient ge charly. will authorize [id number] RONALD BRAVO MD CWO5 [address] [place] [address] 10/18/2023 09:30:09 10/18/2023 10:32:29 Screening for malignant neoplasm of cervix 447145711 Z12.4 Gynecologi c examination 62776916 Z01.419 Eczema of nipple 2995795 09 L30.9 [id number] RONALD BRAVO MD CWO5 [address] [place] [address] 12/13/2023 10:12:10 12/13/2023 10:51:38 Insertion of intrauterine contraceptive device 87569253 Z30.430 [id number] RONALD BRAVO MD CWO1 [address] [address] 05/23/2024 10:20:28 05/23/2024 10:41:50 IUD check 407593775 Z30.431 - IUD string visible on exam Bacterial vaginosis 4197 12782 N76.0 - Thin, grover malodrous discharge on exam- Rx for Flagyl sent with 2 refills as symptoms are recurrent per pt Malodorous urine 5793692 01 R82.998 - UA + Leuks and Protein- Check urine culture- Will call with results. Health Concerns Section Related Observation LastModified by Organization Detai ls LastModified Time None Recorded Concern Status LastModified by Organization Details LastModified Time None Recorded Advance Directives Directive None Recorded Payers Insurance Date Sequence Insurance Name Policy Number Policy Anton Covered Member ID Anton Member ID Guarantor Name 05/21/2024 1 [place] - YURIY Davenport [id number] Janice Davenport Notes Date Note Type Note Provider Name and Address Organization Details Recorded Time 02/19/2022 text/html ROS as noted in the HPI 1. MAB: s/p suction D&C 01/30/22. VB stopped 02/18/22. Overall, feeling better.2. Vaginal odor: since about 02/09/22 noticed stronger smell. Pt had some some vaginal itching and slight vulvar itching. 02/12/22 Affirm pos for Gardnerella and pt treated with Metronidazole with resolution of her symptoms.3. Contraception: pt with multiple medical issues (asthma, DM II on insulin, hx [place] 2019, HTN, hypothyroidism). At this time, she wants to start contraception. 01/30/22 Pathology: Products of conception with chorionic villi and partially necrotic decidua. Minal Bianchi DO [address] [facility] ([place], [place]), [address] [place] [address], [place], [address], [facility] 02/20/2022 21:03:03 02/26/2022 text/html 41 YO S/P SUCTION D&C FOR MISSED ABContinued bleeding that keeps starting and stopping. no bleeding todayno f/c/n/v/cp/sob recent treatment (02/19) for BV w/ flagyl. Patient continues to have odor and discharge since stopping abx 2 days ago.no urinary sx, sexually active/ one partner Trisha Stauffer DO [address] [facility] ([place], [place]), [address] [place] [address], [place], [address], [facility] 02/26/2022 15:50:39 10/18/2023 text/html 42 yr old here for annual exam. Feeling well, no complaints. 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 There are no other changes to medical health. She is taking anti-HTN/diuretics. Not on any form of contraception. Menses are regular. She reports BV infection after menses each month, has been taking Metrogel for 1 day after and it clears infection. No douching. Sexually active with one partner rarely. RONALD BRAVO MD [address] [place] [address], [address] [place] [address], [address], [facility] 10/18/2023 13:16:07 12/13/2023 text/html Patient presents for Mirena IUD insertion. Allergies noted. Upreg neg. RONALD BRAVO MD [address] [place] [address], [address] [place] [address], [place], [address], [facility] 12/13/2023 12:07:36 05/23/2024 text/html ROS as noted in the HPI Patient presents for Mirena IUD string check. 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 She does suffer from BV infections and feels like they could have worsened with IUD insertion. She also thinks she has a UTI due to malodorous urine. No other complaints. RONALD BRAVO MD [address] [place] [address], [address] Floor, [place], [address], [place] - [facility] 05/23/2024 10:51:24 OBGyn Episode Ob Episode Information Episode Created Date Number of Fetuses Patient Bloodtype Patient rh Status Prepregnancy Weight lbs Domestic Partner Domestic Partner Phone Father Name Inner Tube Cutter Status 01/19/20 19 1 CLOSED Fetus Data First Name Last Name Admitted to NICU Weight (g) Sex Living Outcome Pediatric Complications Fetus ID Race Codes Race Delivery Type 3713.55 7704 M Full Term [id number] Vaginal Delivery Forceps Bran Calculation Initial Bran Date Initial Exam Date Initial Exam Provider Initial Ultrasound Date Last Menstrual Period Date Ultra Sound Weeks Gestation 0 Eighteen To Twenty Week Bran Update Ultra Sound Date Fundal Height At Umbil Quickening Date Ultra Sound Latest Weeks Gestation Final Bran Confirmed By Final Bran Confirmed Date Final Bran Date Ultra Sound Latest Days Gestation 0 0 Menstrual History Last Menstrual Date Menses Monthly On Bcp Conception Prior Menses Frequency Hcg Plus Date Menarche Onset Age Delivery Information Delivery Date Delivery Type Labor Anesthesia Weeks Gestation Incision Type Labor Labor Length Hrs Delivered By Post Complications Tubal Sterilization Discharge Date Comments 9 37 PTL at 7 months, preE Discharge Information Feeding Method Contraceptive Method Maternal HG B and HCT Levels Ob Episode Information Episode Created Date Number of Fetuses Patient Bloodtype Patient rh Status Prepregnancy Weight lbs Domestic Partner Domestic Partner Phone Father Name Inner Tube Cutter Status 01/13/20 22 1 CLOSED Fetus Data First Name Last Name Admitted to NICU Weight (g) Sex Living Outcome Pediatric Complications Fetus ID Race Codes Race Delivery Type [id number] Problems Problem Notes 1. Hx Myocardial Infarction: 07/2019. No catheterization or open heart surgery, started on anticoagulation. Previously on clopidogrel, d/c by Dr. Garcia rn telephone triage. 2. cHTN (1998 preE and 2004 preE): Amlodipine 10 mg, atenolol 100 mg, Metoprolol 100 mg, ASA 81 mg3. T2DM: 65u qhs and Humalog Sliding Scale4. BMI 455. Hypothyroid: No meds6. Asthma7. AMA (42 @ [facility])2017 APPY via laparotomy Problem Name Start Date End Date Resolution Snomed Code Not e High risk 83512269 Asthma 543967035 Advanced maternal age 076793018 Old myocardial infarction 1755 008 Hypothyroidism 37493727 Hypertensive disorder 45130528 Type 2 diabetes mellitus 69620 006 Morbid obesity 830324797 Bran Calculation Initial Bran Date Initial Exam Date Initial Exam Provider Initial Ultrasound Date Last Menstrual Period Date Ultra Sound Weeks Gestation 08/18/2022 01/12/2022 11/11/2021 0 Eighteen To Twenty Week Bran Update Ultra Sound Date Fundal Height At Umbil Quickening Date Ultra Sound Latest Weeks Gestation Final Bran Confirmed By Final Bran Confirmed Date Final Bran Date Ultra Sound Latest Days Gestation 0 API-217 01/12/2022 08/18/19 23 0 Pre- Flowsheet Flowsheet Date 01/12/2022 Joshi Score Blood Edema Fundus Height Fundus Units Glucose Ketones Leukocytes Nitrite Labor Signs Protein Cervic Dilation Cervic Effacement Cervic Station Type Weight in lbs Pre/Post Dialysis Refused Weight 266.681322458993 BP Diastolic BP Location Tested BP Systolic BP Type 92 142 Fetus Heart Rate Present Fetus Movement Comments Menstrual History Last Menstrual Date Menses Monthly On Bcp Conception Prior Menses Frequency Hcg Plus Date Menarche Onset Age 0511/11/2021 Delivery Information Delivery Date Delivery Type Labor Anesthesia Weeks Gestation Incision Type Labor Labor Length Hrs Delivered By Post Complications Tubal Sterilization Discharge Date Comments Discharge Information Feeding Method Contraceptive Method Maternal HG B and HCT Levels Ob Episode Information Episode Created Date Number of Fetuses Patient Bloodtype Patient rh Status Prepregnancy Weight lbs Domestic Partner Domestic Partner Phone Father Name Inner Tube Cutter Status 01/20/20 19 1 CLOSED Fetus Data First Name Last Name Admitted to NICU Weight (g) Sex Living Outcome Pediatric Complications Fetus ID Race Codes Race Delivery Type [id number] Bran Calculation Initial Bran Date Initial Exam Date Initial Exam Provider Initial Ultrasound Date Last Menstrual Period Date Ultra Sound Weeks Gestation 08/18/2019 01/19/2019 11/11/2018 0 Eighteen To Twenty Week Bran Update Ultra Sound Date Fundal Height At Umbil Quickening Date Ultra Sound Latest Weeks Gestation Final Bran Confirmed By Final Bran Confirmed Date Final Bran Date Ultra Sound Latest Days Gestation 0 08/18/19 20 0 Menstrual History Last Menstrual Date Menses Monthly On Bcp Conception Prior Menses Frequency Hcg Plus Date Menarche Onset Age 0511/11/2018 Delivery Information Delivery Date Delivery Type Labor Anesthesia Weeks Gestation Incision Type Labor Labor Length Hrs Delivered By Post Complications Tubal Sterilization Discharge Date Comments Discharge Information Feeding Method Contraceptive Method Maternal HG B and HCT Levels Ob Episode Information Episode Created Date Number of Fetuses Patient Bloodtype Patient rh Status Prepregnancy Weight lbs Domestic Partner Domestic Partner Phone Father Name Inner Tube Cutter Status 01/19/20 19 1 CLOSED Fetus Data First Name Last Name Admitted to NICU Weight (g) Sex Living Outcome Pediatric Complications Fetus ID Race Codes Race Delivery Type 3005.04 7 M Full Term [id number] Vaginal Delivery Bran Calculation Initial Bran Date Initial Exam Date Initial Exam Provider Initial Ultrasound Date Last Menstrual Period Date Ultra Sound Weeks Gestation 0 Eighteen To Twenty Week Bran Update Ultra Sound Date Fundal Height At Umbil Quickening Date Ultra Sound Latest Weeks Gestation Final Bran Confirmed By Final Bran Confirmed Date Final Bran Date Ultra Sound Latest Days Gestation 0 0 Menstrual History Last Menstrual Date Menses Monthly On Bcp Conception Prior Menses Frequency Hcg Plus Date Menarche Onset Age Delivery Information Delivery Date Delivery Type Labor Anesthesia Weeks Gestation Incision Type Labor Labor Length Hrs Delivered By Post Complications Tubal Sterilization Discharge Date Comments 5 38 preE Discharge Information Feeding Method Contraceptive Method Maternal HG B and HCT Levels
--- OUTSIDE RECORDS SUMMARY | 2025-03-23 10:19 | XMS_ITS | Encounter Summary ---
Author Organization Formerly [facility] Address [address] [place] [id number] Care Team Providers Care Manager [place] Name Role Phone CharoNikki Primary Care Provider [phone] Encounter Details Date Type Department Care Team (Late st Contact Info) Description 08/13/2022 Scanned Document [facility] [address] [place] [id number] Amanda Hu PA [address] [facility] [address] [place] [address] Social History Tobacco Use Types Packs/Day Years Used Date Smoking Tobacco: Never Smokeless Tobacco: Never Alcohol Use Standard Drinks/Week Comments Yes 0 (1 standard drink = 0.6 oz pur e alcohol) social Comments No Sex and Gender Information Value Date Recorded Sex Assigned at Not on file Legal Sex Female 11:10 AM EDT Gender Identity Not on file Sexual Orientation Not on file COVID-19 Exposure Response Date Recorded In the last 10 days, have yo u been in contact with someone who was confirmed or suspected to have Coronavirus/COVID-19? No / Unsure 08/13/2022 9:23 AM EST documented as of this encounter Plan of Treatment Upcoming Encounters Date Type Department Care Team (Late st Contact Info) Description 06/05/2025 1:00 PM EST Office Visit [facility], [address] [phone] Kb Guerrero MD [address] [place] [phone] documented as of this encounter Visit Diagnoses Not on filedocumented in this encounter Care Teams Manager Mass Relationship Specialty Start Date End Date Nikki Mancilla DO PCP - General Internal Medicine 09/23/21 documented as of this encounter
--- OUTSIDE RECORDS SUMMARY | 2025-03-23 10:19 | XMS_ITS ---
Author Name [facility] Organization Unknown Results Test Name/Text Value Interpretation Date Range Source [facility] ACTIVITY 0.7 ng/mL/hr 5 [facility] ALDOSTERONE 7.6 ng/dL 5 [facility] NT-PROBNP 4008.0 pg/mL Above high normal 5 - 300 [facility] CALCIUM, TOTAL 9.4 mg/dL 5 8.4 - 10.2 [facility] POTASSIUM 4.0 mmol/L 5 3.6 - 5.1 [facility] GLUCOSE 160.0 mg/dL 5 70 - 200 [facility] UREA NITROGEN 30.0 mg/dL Above high normal 5 8 - 24 [facility] CREATININE 1.8 mg/dL Above high normal 5 0.6 - 1.2 [facility] ALBUMIN, AUTOMATED 3.4 g/dL Below low normal 02/27 5 3.8 - 5.3 [facility] SODIUM 138.0 mmol/L 5 137 - 144 [facility] BICARBONATE 27.0 mmol/L 5 23 - 32 [facility] PHOSPHORUS 3.9 mg/dL 5 2.4 - 4.8 [facility] GLOMERULAR FILTRATION RATE ML/MIN/1.73 SQ M.PREDICTED 35.0 mL/min/1.73m*2 Below low normal 5 60 - [facility] ANION GAP 10.0 mmol/L 5 3 - 11 [facility] CHLORIDE 101.0 mmol/L 5 100 - 111 [facility] POCT CHLORIDE 107.0 mmol/L 5 100 - 111 [facility] POCT IONIZED CALCIUM 1.22 mmol/L 02 5 1.14 - 1.33 [facility] POCT GLUCOSE 96.0 mg/dL 5 70 - 200 [facility] POCT SODIUM 140.0 mmol/L 5 137 - 144 [facility] POCT HEMOGLOBIN 11.9 g/dL Below low normal 11/09/19 2 5 12 - 16 [facility] POCT CREATININE 1.9 mg/dL Above high normal 02 5 0.6 - 1.2 [facility] POCT POTASSIUM 4.4 mmol/L 5 3.6 - 5.1 [facility] POCT BLOOD UREA NITROGEN 22.0 mg/dL 5 8 - 24 [facility] POCT TCO2 24.0 mmol/L 5 23 - 32 [facility] POCT HEMATOCRIT 35.0 %PCV 5 35 - 47 [facility] POCT GLUCOSE 127.0 mg/dL 5 70 - 200 [facility] POCT CREATININE 2.0 mg/dL Above high normal 02 5 0.6 - 1.2 [facility] POCT BLOOD UREA NITROGEN 25.0 mg/dL Above high normal 5 8 - 24 [facility] POCT HEMOGLOBIN 10.9 g/dL Below low normal 11/03/19 2 5 12 - 16 [facility] POCT SODIUM 140.0 mmol/L 5 137 - 144 [facility] POCT POTASSIUM 4.4 mmol/L 5 3.6 - 5.1 [facility] POCT IONIZED CALCIUM 1.24 mmol/L 02 5 1.14 - 1.33 [facility] POCT CHLORIDE 104.0 mmol/L 5 100 - 111 [facility] POCT TCO2 26.0 mmol/L 5 23 - 32 [facility] POCT HEMATOCRIT 32.0 %PCV Below low normal 11/03/19 2 5 35 - 47 [facility] POCT POTASSIUM 4.9 mmol/L 5 3.6 - 5.1 [facility] POCT TCO2 26.0 mmol/L 5 23 - 32 [facility] POCT HEMOGLOBIN 10.9 g/dL Below low normal 11/03/19 2 5 12 - 16 [facility] POCT BLOOD UREA NITROGEN 27.0 mg/dL Above high normal 5 8 - 24 [facility] POCT CHLORIDE 105.0 mmol/L 5 100 - 111 [facility] POCT IONIZED CALCIUM 1.22 mmol/L 02 5 1.14 - 1.33 [facility] POCT SODIUM 140.0 mmol/L 5 137 - 144 [facility] POCT GLUCOSE 141.0 mg/dL 5 70 - 200 [facility] POCT CREATININE 1.9 mg/dL Above high normal 02 5 0.6 - 1.2 [facility] POCT HEMATOCRIT 32.0 %PCV Below low normal 11/03/19 2 5 35 - 47 [facility] NATRIURETIC PEPTIDE B (BNP) 484.0 pg/mL Above high normal 5 0 - 100 [facility] MAGNESIUM 2.3 mg/dL 5 1.8 - 3 [facility] CREATININE 1.8 mg/dL Above high normal 5 0.6 - 1.2 [facility] SODIUM 140.0 mmol/L 5 137 - 144 [facility] CALCIUM, TOTAL 8.8 mg/dL 5 8.4 - 10.2 [facility] POTASSIUM 4.7 mmol/L 5 3.6 - 5.1 [facility] GLUCOSE 139.0 mg/dL 5 70 - 200 [facility] GLOMERULAR FILTRATION RATE ML/MIN/1.73 SQ M.PREDICTED 35.0 mL/min/1.73m*2 Below low normal 5 60 - [facility] CHLORIDE 106.0 mmol/L 5 100 - 111 [facility] ANION GAP 7.0 mmol/L 5 3 - 11 [facility] UREA NITROGEN 25.0 mg/dL Above high normal 5 8 - 24 [facility] BICARBONATE 27.0 mmol/L 5 23 - 32 [facility] Glucose Bld-mCnc 169.0 mg/dL Normal 4 70 - 199 [facility] BUN SerPl-mCnc 38.0 mg/dL Above high normal 06/20/20 2 4 7 - 17 [facility] CO2 SerPl-sCnc 26.0 mmol/L Normal 4 24 - 32 [facility] Glucose SerPl-mCnc 220.0 mg/dL Above high normal 05/23 4 70 - 199 [facility] Calcium SerPl-mCnc 8.4 mg/dL Normal 4 8.4 - 10.2 [facility] Sodium SerPl-sCnc 135.0 mmol/L Normal 4 135 - 145 [facility] BUN/Creat SerPl 23.8 Above high normal 02 4 12 - 20 [facility] Chloride SerPl-sCnc 103.0 mmol/L Normal 06/20/20 2 4 98 - 107 [facility] eGFRcr SerPlBld CKD-EPI 2020 41.0 mL/min/1.73m2 Below low normal 4 - [facility] Anion Gap SerPl-sCnc 6.0 Normal 02 4 5 - 14 [facility] Potassium SerPl-sCnc 4.5 mmol/L Normal 02 4 3.5 - 5.1 [facility] Creat SerPl-mCnc 1.6 mg/dL Above high normal 4 0.5 - 1 [facility] Glucose Bld-mCnc 176.0 mg/dL Normal 4 70 - 199 [facility] Glucose Bld-mCnc 170.0 mg/dL Normal 4 70 - 199 [facility] Glucose Bld-mCnc 206.0 mg/dL Above high normal 4 70 - 199 [facility] Glucose Bld-mCnc 171.0 mg/dL Normal 4 70 - 199 [facility] Glucose Bld-mCnc 176.0 mg/dL Normal 4 70 - 199 [facility] Glucose Bld-mCnc 214.0 mg/dL Above high normal 4 70 - 199 [facility] Glucose Bld-mCnc 168.0 mg/dL Normal 4 70 - 199 [facility] Glucose Bld-mCnc 145.0 mg/dL Normal 4 70 - 199 [facility] PA ADP PRP-aCnc 249.0 PRU Normal 4 [facility] Magnesium SerPl-mCnc 2.5 mg/dL Normal 02 4 1.7 - 2.8 [facility] Phosphate SerPl-mCnc 4.9 mg/dL Above high normal 4 2.5 - 4.5 [facility] CO2 SerPl-sCnc 28.0 mmol/L Normal 4 24 - 32 [facility] Chloride SerPl-sCnc 101.0 mmol/L Normal 06/18/20 2 4 98 - 107 [facility] BUN/Creat SerPl 21.9 Above high normal 02 4 12 - 20 [facility] Sodium SerPl-sCnc 134.0 mmol/L Below low normal 4 135 - 145 [facility] Creat SerPl-mCnc 1.6 mg/dL Above high normal 4 0.5 - 1 [facility] Anion Gap SerPl-sCnc 5.0 Normal 02 4 5 - 14 [facility] Glucose SerPl-mCnc 177.0 mg/dL Normal 4 70 - 199 [facility] Calcium SerPl-mCnc 8.7 mg/dL Normal 4 8.4 - 10.2 [facility] BUN SerPl-mCnc 35.0 mg/dL Above high normal 06/18/20 2 4 7 - 17 [facility] eGFRcr SerPlBld CKD-EPI 2020 41.0 mL/min/1.73m2 Below low normal 4 - [facility] Potassium SerPl-sCnc 4.2 mmol/L Normal 02 4 3.5 - 5.1 [facility] Hct VFr Bld Auto 32.4 % Below low normal 02 4 37 - 47 [facility] WBC # Bld Auto 9.0 K/mcL Normal 4 4 - 10.5 [facility] MCH RBC Qn Auto 23.9 pcg Below low normal 06/18/20 2 4 25 - 33 [facility] RBC # Bld Auto 4.37 M/mcL Normal 4 4.2 - 5.4 [facility] MCHC RBC Auto-mCnc 32.3 g/dL Normal 4 32 - 36 [facility] Hgb Bld-mCnc 10.4 g/dL Below low normal 4 12.5 - 16 [facility] Platelet # Bld Auto 381.0 K/mcL Normal 06/18/20 2 4 150 - 450 [facility] RDW RBC Auto-Rto 15.6 % Normal 4 12.1 - 16.2 [facility] MCV RBC Auto 74.1 FL Below low normal 4 78 - 100 [facility] PMV Bld Auto 9.3 FL Normal 4 7.4 - 11.4 [facility] Glucose Bld-mCnc 193.0 mg/dL Normal 4 70 - 199 [facility] Glucose Bld-mCnc 172.0 mg/dL Normal 4 70 - 199 [facility] Glucose Bld-mCnc 194.0 mg/dL Normal 4 70 - 199 [facility] Glucose Bld-mCnc 167.0 mg/dL Normal 4 70 - 199 [facility] Glucose Bld-mCnc 140.0 mg/dL Normal 4 70 - 199 [facility] eGFRcr SerPlBld CKD-EPI 2020 48.0 mL/min/1.73m2 Below low normal 4 - [facility] Glucose SerPl-mCnc 157.0 mg/dL Normal 4 70 - 199 [facility] BUN/Creat SerPl 20.7 Above high normal 02 4 12 - 20 [facility] BUN SerPl-mCnc 29.0 mg/dL Above high normal 06/17/20 2 4 7 - 17 [facility] Creat SerPl-mCnc 1.4 mg/dL Above high normal 4 0.5 - 1 [facility] Calcium SerPl-mCnc 8.5 mg/dL Normal 4 8.4 - 10.2 [facility] Anion Gap SerPl-sCnc 4.0 Below low normal 4 5 - 14 [facility] Sodium SerPl-sCnc 136.0 mmol/L Normal 4 135 - 145 [facility] Potassium SerPl-sCnc 4.1 mmol/L Normal 02 4 3.5 - 5.1 [facility] CO2 SerPl-sCnc 28.0 mmol/L Normal 4 24 - 32 [facility] Chloride SerPl-sCnc 104.0 mmol/L Normal 06/17/20 2 4 98 - 107 [facility] PMV Bld Auto 9.6 FL Normal 4 7.4 - 11.4 [facility] Hgb Bld-mCnc 10.2 g/dL Below low normal 4 12.5 - 16 [facility] MCV RBC Auto 74.0 FL Below low normal 4 78 - 100 [facility] RBC # Bld Auto 4.26 M/mcL Normal 4 4.2 - 5.4 [facility] Platelet # Bld Auto 349.0 K/mcL Normal 06/17/20 2 4 150 - 450 [facility] MCHC RBC Auto-mCnc 32.5 g/dL Normal 4 32 - 36 [facility] Hct VFr Bld Auto 31.5 % Below low normal 02 4 37 - 47 [facility] WBC # Bld Auto 10.1 K/mcL Normal 4 4 - 10.5 [facility] RDW RBC Auto-Rto 15.2 % Normal 4 12.1 - 16.2 [facility] MCH RBC Qn Auto 24.0 pcg Below low normal 06/17/20 2 4 25 - 33 [facility] Glucose Bld-mCnc 160.0 mg/dL Normal 4 [facility] HbA1c MFr Bld 7.2 % Above high normal 4 - 5.7 [facility] HDLc SerPl-mCnc 41.0 mg/dL Normal 4 35 - 88 [facility] VLDLc SerPl Calc-mCnc 38.2 mg/dL Normal 4 [facility] Cholest SerPl-mCnc 300.0 mg/dL Above high normal 05/22 4 0 - 200 [facility] LDLc SerPl Calc-mCnc 221.0 mg/dL Above high normal 4 50 - 130 [facility] Trigl SerPl-mCnc 191.0 mg/dL Above high normal 4 - 150 [facility] aPTT PPP 29.4 sec Normal 4 25 - 37 [facility] INR PPP 0.9 Normal 4 0.8 - 1.1 [facility] PT Bld 10.8 sec Normal 4 10.5 - 13.3 [facility] Glucose SerPl-mCnc 190.0 mg/dL Normal 4 70 - 199 [facility] Anion Gap SerPl-sCnc 5.0 Normal 02 4 5 - 14 [facility] Sodium SerPl-sCnc 136.0 mmol/L Normal 4 135 - 145 [facility] CO2 SerPl-sCnc 28.0 mmol/L Normal 4 24 - 32 [facility] Creat SerPl-mCnc 1.49 mg/dL Above high normal 4 0.5 - 1 [facility] BUN SerPl-mCnc 29.0 mg/dL Above high normal 06/16/20 2 4 7 - 17 [facility] BUN/Creat SerPl 19.5 Normal 4 12 - 20 [facility] eGFRcr SerPlBld CKD-EPI 2020 45.0 mL/min/1.73m2 Below low normal 4 - [facility] Calcium SerPl-mCnc 9.1 mg/dL Normal 4 8.4 - 10.2 [facility] Chloride SerPl-sCnc 103.0 mmol/L Normal 06/16/20 2 4 98 - 107 [facility] Potassium SerPl-sCnc 4.4 mmol/L Normal 02 4 3.5 - 5.1 [facility] Platelet # Bld Auto 424.0 K/mcL Normal 06/16/20 2 4 150 - 450 [facility] Eosinophil/leuk NFr Bld Auto 1.5 % Normal 4 0 - 6 [facility] Eosinophil # Bld Auto 0.17 K/mcL Normal 4 0 - 0.5 [facility] WBC # Bld Auto 11.7 K/mcL Above high normal 06/16/20 2 4 4 - 10.5 [facility] Lymphocytes # Bld Auto 2.56 K/mcL Normal 4 1 - 3.2 [facility] Basophils/leuk NFr Bld Auto 0.3 % Normal 4 0 - 2 [facility] RBC # Bld Auto 4.62 M/mcL Normal 4 4.2 - 5.4 [facility] Basophils # Bld Auto 0.03 K/mcL Normal 02 4 0 - 0.2 [facility] Monocytes/leuk NFr Bld Auto 9.6 % Normal 4 2 - 12 [facility] Neutrophils # Bld Auto 7.78 K/mcL Normal 4 1.8 - 7.8 [facility] MCV RBC Auto 77.3 FL Below low normal 4 78 - 100 [facility] Hct VFr Bld Auto 35.7 % Below low normal 02 4 37 - 47 [facility] Neutrophils/leuk NFr Bld Auto 66.3 % Normal 4 44 - 74 [facility] MCHC RBC Auto-mCnc 30.5 g/dL Below low normal 06/16 4 32 - 36 [facility] PMV Bld Auto 10.8 FL Normal 4 7.4 - 11.4 [facility] Hgb Bld-mCnc 10.9 g/dL Below low normal 4 12.5 - 16 [facility] Lymphocytes/leuk NFr Bld Auto 21.9 % Normal 4 20 - 48 [facility] RBC Qn Auto 23.6 pcg Below low normal 06/16/20 2 4 25 - [facility] RDW RBC Auto-Rto 15.1 % Normal 4 12.1 - 16.2 [facility] Monocytes # Bld Auto 1.12 K/mcL Above high normal 4 0 - 0.8 [facility] Glucose Bld-mCnc 142.0 mg/dL Normal 4 70 - 199 [facility] MICROALBUMIN/CREATIN INE 3354.0 mg/g Creat Above high normal 4 2 - 20 [facility] PROTEIN, RANDOM URINE 555.0 mg/dL Normal 4 [facility] PROTEIN / CREATININE RATIO 4.78 Ratio Above high normal 4 - 0.2 [facility] CREATININE, RANDOM 116.0 mg/dL Normal 4 [facility] PH, POC 5.5 Normal 4 5 - 8 [facility] KETONES URINE Negative Normal 4 - [facility] BLOOD, URINE, POC Negative Normal 4 - [facility] UROBILINOGEN, POC 0.2 EU/dL Normal 4 - [facility] NITRITE, POC Negative Normal 4 - [facility] TEST STRIP LOT # Normal 4 [facility] CLARITY, POC Cloudy Abnormal 4 - [facility] GLUCOSE URINE, POC Negative Normal 4 - [facility] INSTRUMENT ID [id number] Normal 4 [facility] TEST STRIP EXP DATE Normal 04/27/20 2 4 [facility] COLOR, POC Yellow Normal 4 - [facility] LEUKOCYTE, POC Negative Normal 4 - [facility] SINGE WINDER ID [id number] Normal 4 [facility] BILI, POC Negative Normal 4 - [facility] SPECIFIC GRAVITY, POC 1.025 Normal 4 1.003 - 1.035 [facility] PROTEIN, POC >=300 Abnormal 4 - [facility] UREA NITROGEN 29.0 mg/dL Above high normal 4 8 - 24 [facility] POTASSIUM 5.0 mmol/L Normal 4 3.6 - 5.1 [facility] GLOMERULAR FILTRATION RATE ML/MIN/1.73 SQ M.PREDICTED 58.0 mL/min/1.73m*2 Below low normal 4 60 - [facility] CHLORIDE 107.0 mmol/L Normal 4 100 - 111 [facility] BICARBONATE 25.0 mmol/L Normal 4 23 - 32 [facility] ANION GAP 7.0 mmol/L Normal 4 3 - 11 [facility] GLUCOSE 106.0 mg/dL Normal 4 70 - 200 [facility] ALBUMIN, AUTOMATED 3.1 g/dL Below low normal 02/21 4 3.8 - 5.3 [facility] CREATININE 1.2 mg/dL Normal 4 0.6 - 1.2 [facility] PHOSPHORUS 4.5 mg/dL Normal 4 2.4 - 4.8 [facility] SODIUM 139.0 mmol/L Normal 4 137 - 144 [facility] CALCIUM, TOTAL 8.8 mg/dL Normal 4 8.4 - 10.2 [facility] IMMUNOGLOBULIN G SUBCLASS 2 634.0 mg/dL Above high normal 4 124 - 549 [facility] IMMUNOGLOBULIN G SUBCLASS 3 123.0 mg/dL Normal 4 21 - 134 [facility] IMMUNOGLOBULIN G SUBCLASS 1 960.0 mg/dL Normal 4 240 - 1118 [facility] IMMUNOGLOBULIN G SUBCLASS 4 8.0 mg/dL Normal 4 1 - 123 [facility] MICROALBUMIN/CREATIN INE 2354.0 mg/g Creat Above high normal 4 2 - 20 [facility] PROTEIN, RANDOM URINE 622.0 mg/dL Normal 4 [facility] PROTEIN / CREATININE RATIO 3.11 Ratio Above high normal 4 - 0.2 [facility] GLOMERULAR FILTRATION RATE ML/MIN/1.73 SQ M.PREDICTED 48.0 mL/min/1.73m*2 Below low normal 4 60 - [facility] CALCIUM, TOTAL 8.6 mg/dL Normal 4 8.4 - 10.2 [facility] CREATININE 1.4 mg/dL Above high normal 4 0.6 - 1.2 [facility] GLUCOSE 79.0 mg/dL Normal 4 70 - 200 [facility] BICARBONATE 24.0 mmol/L Normal 4 23 - 32 [facility] POTASSIUM 4.8 mmol/L Normal 4 3.6 - 5.1 [facility] ANION GAP 8.0 mmol/L Normal 4 3 - 11 [facility] PHOSPHORUS 4.8 mg/dL Normal 4 2.4 - 4.8 [facility] UREA NITROGEN 21.0 mg/dL Normal 4 8 - 24 [facility] ALBUMIN, AUTOMATED 3.2 g/dL Below low normal 01/18 4 3.8 - 5.3 [facility] CHLORIDE 108.0 mmol/L Normal 4 100 - 111 [facility] SODIUM 140.0 mmol/L Normal 4 137 - 144 [facility] CREATININE, RANDOM 200.0 mg/dL Normal 4 [facility] PROTEIN / CREATININE RATIO 5.6 Ratio Above high normal 4 - 0.2 [facility] PROTEIN, RANDOM URINE 1434.0 mg/dL Normal 4 [facility] MICROALBUMIN/CREATIN INE >1953.0 mg/g Creat Above high normal 4 2 - 20 [facility] CREATININE, RANDOM 256.0 mg/dL Normal 4 [facility] CLARITY, POC Cloudy Abnormal 4 - [facility] TEST STRIP LOT # Normal 4 [facility] UROBILINOGEN, POC 0.2 EU/dL Normal 4 - [facility] [place] [id number] Normal 4 [facility] TEST STRIP EXP DATE Normal 12/06/19 2 4 [facility] PROTEIN, POC >=300 Abnormal 4 - [facility] BLOOD, URINE, POC Trace-intact Abnormal 4 - [facility] GLUCOSE URINE, POC Negative Normal 4 - [facility] NITRITE, POC Negative Normal 4 - [facility] INSTRUMENT ID [id number] Normal 4 [facility] SPECIFIC GRAVITY, POC 1.025 Normal 4 1.003 - 1.035 [facility] KETONES URINE Trace Abnormal 4 - [facility] COLOR, POC Yellow Normal 4 - [facility] BILI, POC Negative Normal 4 - [facility] PH, POC 5.5 Normal 4 5 - 8 [facility] LEUKOCYTE, POC Negative Normal 4 - [facility] GLUCOSE URINE, POC Negative Normal 4 - [facility] LEUKOCYTE, POC Negative Normal 4 - [facility] INSTRUMENT ID [id number] Normal 4 [facility] PH, POC 6.0 Normal 4 5 - 8 [facility] TEST STRIP EXP DATE Normal 08/04/19 2 4 [facility] UROBILINOGEN, POC 1.0 EU/dL Normal 4 - [facility] NITRITE, POC Negative Normal 4 - [facility] BILI, POC Negative Normal 4 - [facility] TEST STRIP LOT # Normal 4 [facility] CLARITY, POC Clear Normal 4 - [facility] SPECIFIC GRAVITY, POC >=1.03 Normal 4 1.003 - 1.035 [facility] PROTEIN, POC >=300 Abnormal 4 - [facility] BLOOD, URINE, POC Negative Normal 4 - [facility] KETONES URINE Negative Normal 4 - [facility] COLOR, POC Yellow Normal 4 - [facility] SING[place] WIND[place] ID [id number] Normal 4 [facility] MICROALBUMIN/CREATIN INE >2941.0 mg/g Creat Above high normal 4 2 - 20 [facility] PROTEIN / CREATININE RATIO 4.95 Ratio Above high normal 4 - 0.2 [facility] PROTEIN, RANDOM URINE 842.0 mg/dL Normal 4 [facility] CREATININE, RANDOM 170.0 mg/dL Normal 4 [facility] BILI, POC Negative Normal 4 - [facility] BLOOD, URINE, POC Small Abnormal 4 - [facility] PH, POC 6.5 Normal 4 5 - 8 [facility] COLOR, POC Yellow Normal 4 - [facility] GLUCOSE URINE, POC 100.0 mg/dL Abnormal 4 - [facility] LEUKOCYTE, POC Negative Normal 4 - [facility] SPECIFIC GRAVITY, POC 1.025 Normal 4 1.003 - 1.035 [facility] TEST STRIP EXP DATE Normal 07/15/19 2 4 [facility] TEST STRIP LOT # Normal 4 [facility] UROBILINOGEN, POC 0.2 EU/dL Normal 4 - [facility] NITRITE, POC Negative Normal 4 - [facility] KETONES URINE Negative Normal 4 - [facility] PROTEIN, POC >=300 Abnormal 4 - [facility] CLARITY, POC Clear Normal 4 - [facility] [place] ID [id number] Normal 4 [facility] INSTRUMENT ID [id number] Normal 4 [facility] ANTI DNA DOUBLE STRANDED 80.0 IU/mL Normal 4 [facility] BRIAN TITER 1 1:80 Normal 4 - [facility] BRIAN PATTERN Speckled Normal 4 [facility] ANTI-NUCLEAR ANTIBODY (BRIAN) Positive Abnormal 4 - [facility] METANEPHRINE <0.10 Normal 4 0 - 0.49 [facility] NORMETANEPHRINE 0.39 nmol/L Normal 4 0 - 0.89 [facility] METANEPHRINES INTERPRETATION See Note Normal 4 [facility] RENIN ACTIVITY 0.2 ng/mL/hr Normal 4 [facility] ALDOSTERONE 8.4 ng/dL Normal 4 [facility] CREATININE 1.1 mg/dL Normal 4 0.6 - 1.2 [facility] ALBUMIN, AUTOMATED 3.2 g/dL Below low normal 07/15 4 3.8 - 5.3 [facility] ANION GAP 7.0 mmol/L Normal 4 3 - 11 [facility] GLUCOSE 143.0 mg/dL Normal 4 70 - 200 [facility] PHOSPHORUS 4.7 mg/dL Normal 4 2.4 - 4.8 [facility] BICARBONATE 27.0 mmol/L Normal 4 23 - 32 [facility] UREA NITROGEN 26.0 mg/dL Above high normal 4 8 - 24 [facility] GLOMERULAR FILTRATION RATE ML/MIN/1.73 SQ M.PREDICTED 64.0 mL/min/1.73m*2 Normal 4 60 - [facility] CALCIUM, TOTAL 9.5 mg/dL Normal 4 8.4 - 10.2 [facility] SODIUM 139.0 mmol/L Normal 4 137 - 144 [facility] CHLORIDE 105.0 mmol/L Normal 4 100 - 111 [facility] POTASSIUM 4.0 mmol/L Normal 4 3.6 - 5.1 [facility] PHOSPHOLIPASE A2 RECEPTOR (PLA2R) AB, JUANPABLO <4 Normal 3 [facility] RENIN ACTIVITY 0.8 ng/mL/hr Normal 3 [facility] SERINE PROTEASE3, IGG 1.0 AU/mL Normal 3 0 - 19 [facility] MYELOPEROX ANTIBODIES, IGG 0.0 AU/mL Normal 3 0 - 19 [facility] LAMBDA QNT FREE LIGHT CHAINS 32.8 mg/L Above high normal 3 5.71 - 26.3 [facility] KAPPA QNT FREE LIGHT CHAINS 81.42 mg/L Above high normal 3 3.3 - 19.4 [facility] KAPPA/LAMBDA FREE LIGHT CHAIN RATIO 2.48 Above high normal 3 0.26 - 1.65 [facility] ALDOSTERONE 13.2 ng/dL Normal 3 [facility] ALBUMIN INDEX 3.3 g/dL Below low normal 3 3.8 - 5.3 [facility] ALPHA 2 0.9 g/dL Normal 3 0.6 - 0.9 [facility] IMMUNOGLOBULIN G 1883.0 mg/dL Above high normal 3 624 - 1766 [facility] GAMMA % 24.0 % Above high normal 3 7.3 - 17 [facility] SIGNED OUT BY: Sofía Posadas, [facility] Normal 04/05/20 2 3 [facility] ALBUMIN % 48.1 % Below low normal 3 57.1 - 71.3 [facility] ALPHA 2 % 12.8 % Normal 3 8.6 - 13.1 [facility] ALPHA 1 % 2.6 % Normal 3 1.3 - 3.5 [facility] IMMUNOGLOBULIN A <5.0 mg/dL Below low normal 02 3 82 - 460 [facility] % BETA 12.5 % Normal 3 8.9 - 14.9 [facility] BETA 0.9 g/dL Normal 3 0.6 - 1.1 [facility] IMMUNOFIXATION Quantitatively IgG is increased; IgA is decreased; and IgM is within the appropriate reference interval. No abnormalities are noted on this immunofixation electrophoresis. Normal 3 [facility] TPE INTERPRETATION NEW Normal 3 [facility] ALPHA 1 0.2 g/dL Normal 3 0.1 - 0.2 [facility] IMMUNOGLOBULIN M 160.0 mg/dL Normal 3 22 - 293 [facility] GAMMA 1.6 g/dL Above high normal 3 0.5 - 1.2 [facility] PROTEIN TOTAL 6.8 g/dL Normal 3 6.2 - 8.1 [facility] TOTAL VOLUME 1200.0 mL Normal 3 [facility] TIME (HOURS) 24.0 hrs Normal 3 [facility] MICROALBUMIN (MG/24HR) IN 24 HOUR URINE 1732.8 mg/d Above high normal 3 0 - 16.5 [facility] MICROALBUMIN 24HR UG/MIN 1203.0 ug/min Above high normal 3 0 - 12 [facility] URINE PROTEIN QUANT 2604.0 mg/24hr Above high normal 1 3 40 - 140 [facility] TIME (HOURS) 24.0 hrs Normal 3 [facility] URINE PROTEIN/CREAT RATIO 2411.0 mg/g creat Normal 3 [facility] CREATININE, URINE 24HR 1.08 g/24hr Normal 3 0.78 - 2.31 [facility] TOTAL VOLUME 1200.0 mL Normal 3 [facility] PROTEIN, RANDOM URINE 605.0 mg/dL Normal 3 [facility] PROTEIN / CREATININE RATIO 3.27 Ratio Above high normal 3 - 0.2 [facility] MICROALBUMIN/CREATIN INE 2318.0 mg/g Creat Above high normal 3 2 - 20 [facility] IMMUNOGLOBULIN A <5.0 mg/dL Below low normal 02 3 82 - 460 [facility] IMMUNOGLOBULIN G 1883.0 mg/dL Above high normal 3 624 - 1766 [facility] IMMUNOGLOBULIN M 160.0 mg/dL Normal 3 22 - 293 [facility] CALCIUM, TOTAL 9.2 mg/dL Normal 3 8.4 - 10.2 [facility] PHOSPHORUS 4.6 mg/dL Normal 3 2.4 - 4.8 [facility] GLOMERULAR FILTRATION RATE ML/MIN/1.73 SQ M.PREDICTED 72.0 mL/min/1.73m*2 Normal 3 60 - [facility] POTASSIUM 4.2 mmol/L Normal 3 3.6 - 5.1 [facility] UREA NITROGEN 23.0 mg/dL Normal 3 8 - 24 [facility] ALBUMIN, AUTOMATED 3.3 g/dL Below low normal 04/05 3 3.8 - 5.3 [facility] ANION GAP 8.0 mmol/L Normal 3 3 - 11 [facility] BICARBONATE 29.0 mmol/L Normal 3 23 - 32 [facility] CREATININE 1.0 mg/dL Normal 3 0.6 - 1.2 [facility] SODIUM 136.0 mmol/L Below low normal 3 137 - 144 [facility] GLUCOSE 330.0 mg/dL Above high normal 3 70 - 200 [facility] CHLORIDE 99.0 mmol/L Below low normal 3 100 - 111 [facility] COMPLEMENT C4 50.0 mg/dL Normal 3 16 - 66 [facility] PROTEIN TOTAL 6.8 g/dL Normal 3 6.2 - 8.1 [facility] COMPLEMENT C3 170.0 mg/dL Above high normal 3 67 - 154 [facility] History of Medication Use Medication Directions Dispensed Refills Start Date End Date Status carvediloL (COREG) 12.5 mg tablet Take 1 tablet (12.5 mg total) by mouth in the morning and 1 tablet (12.5 mg total) in the evening. Take with meals. active torsemide (DEMADEX) 20 mg tablet Take 2 tablets (40 mg total) by mouth in the morning. 025 2024 active aspirin chewable tablet 243 mg 243 mg, Oral, Once, On 12/31/24 at 1930, For 1 dose 025 2024 completed hydrALAZINE (APRESOLINE) 50 mg tablet Take 2 tablets (100 mg total) by mouth in the morning and 2 tablets (100 mg total) before bedtime. 025 active torsemide (DEMADEX) 20 mg tablet Take 1 tablet (20 mg total) by mouth in the morning. 025 active ezetimibe (ZETIA) 10 mg tablet Take 1 tablet (10 mg total) by mouth in the morning. 025 active FREESTYLE PATRICK 3 SENSOR device USE TO SCAN FOR BLOOD SUGAR AT LEAST 4 TIMES DAILY. E11.65. CHANGE EVERY 14 DAYS. 025 active inclisiran (LEQVIO) injection 284 mg 284 mg, subcutaneous, Every 3 months, 2 doses, First dose on Wed08/21/24 at 1000, Last dose on 11/19/24 at 1000 active inclisiran (LEQVIO) syringe Inject 1.5 mLs (284 mg total) under the skin Every 3 months. active ticagrelor (BRILINTA) tablet 180 mg 180 mg, oral, Once, On Wed06/20/24 at 1015, For 1 dose 2023 completed ticagrelor (BRILINTA) tablet Take 90 mg by mouth in the morning and 90 mg in the evening. active ticagrelor (BRILINTA) tablet 90 mg 90 mg, oral, 2 times daily, First dose on Wed06/20/24 at 2215 active fentaNYL (PF) (SUBLIMAZE) injection intravenous, As needed, Starting on Wed06/19/24 at 0911, Intraprocedure 2023 completed iopamidoL (ISOVUE-300) 300 mg iodine /mL (61 %) solution 60 mL 60 mL, Other, Once in imaging, Starting on Wed06/19/24 at 0932, For 1 dose 2023 completed lidocaine (LMX) 4 % cream Topical, Once, On Wed06/19/24 at 0745, For 1 dose, Apply to right wrist for access 2023 completed midazolam (VERSED) injection intravenous, As needed, Starting on Wed06/19/24 at 0911, Intraprocedure 2023 completed nitroglycerin (NITRO-BID) 2 % ointment 1 inch 1 inch, Topical, Once PRN Procedure, Appy to right wrist for access, Starting on Wed06/19/24 at 0727, For 1 dose 2023 completed nitroglycerin (TRIDIL) bolus 200 mcg/mL As needed, Starting on Wed06/19/24 at 0915, Intraprocedure 2023 completed verapamiL (ISOPTIN) injection intravenous, As needed, Starting on Wed06/19/24 at 0913, Intraprocedure 2023 completed hydrALAZINE (APRESOLINE) 50 mg tablet Take 1 tablet (50 mg total) by mouth 2 (two) times a day. active losartan (COZAAR) tablet 100 mg 100 mg, oral, Daily, First dose on Wed06/19/24 at 0945 active labetalol (NORMODYNE) injection 10 mg 10 mg, intravenous, Once, On Wed06/18/24 at 1345, For 1 dose, May administer undiluted over 2 minutes; maximum: 10 mg/minute. 2023 completed perflutren lipid microsphere (DEFINITY) 1.3 mL in sodium chloride 0.9% 8.7 mL injection 10 mL, intravenous, Administer over 10 Minutes, Once in imaging, Starting on Wed06/19/24 at 1456, For 1 dose, CV Medication Orders 2023 completed enoxaparin (LOVENOX) injection 40 mg 40 mg, subcutaneous, Every 12 hours scheduled, First dose on Wed06/16/24 at 2100, Indication: VTE/PE Prophylaxis active iopamidoL (ISOVUE-370) 370 mg iodine /mL (76 %) injection 80 mL 80 mL, intravenous, Once in imaging, Starting on Wed06/16/24 at 1159, For 1 dose 2023 completed sodium chloride 0.9 % flush 10 mL 10 mL, intravenous, Once, On Wed06/16/24 at 1200, For 1 dose 2023 completed sodium chloride 0.9 % intravenous solution 50 mL 50 mL, intravenous, Once in imaging, Starting on Wed06/16/24 at 1159, For 1 dose 2023 completed acetaminophen (TYLENOL) tablet 500 mg 500 mg, oral, Every 6 hours PRN, mild pain, Starting on Wed06/16/24 at 1748 active aspirin 81 mg EC tablet Take 1 tablet (81 mg total) by mouth 1 (one) time each day. active dextrose (D50W) 50% injection 12.5 g 12.5 g, intravenous, Every 15 min PRN, low blood sugar, moderate hypoglycemia *Patient is Unconscious, NPO, unable to swallow: BG 54 - 69 mg/dl*, Starting on Wed06/16/24 at 1739 active dextrose (D50W) 50% injection 25 g 25 g, intravenous, Every 15 min PRN, low blood sugar, severe hypoglycemia *Patient is Unconscious, NPO, unable to swallow: BG LESS than 54 mg/dL*, Starting on Wed06/16/24 at 1739 active dextrose 15 gram/60 mL oral solution 15 g 15 g, oral, Every 15 min PRN, low blood sugar, hypoglycemia *Patient conscious AND able to drink and swallow safely*, Starting on Wed06/16/24 at 1739 active dextrose 15 gram/60 mL oral solution 30 g 30 g, oral, Every 15 min PRN, low blood sugar, hypoglycemia *Patient conscious AND able to drink and swallow safely*, Starting on Wed06/16/24 at 1739 active furosemide (LASIX) tablet 20 mg 20 mg, oral, Daily, First dose on Wed06/16/24 at 1735 active Glucagon HCl (rDNA) injection 1 mg 1 mg, intramuscular, Once as needed, low blood sugar, severe hypoglycemia, Starting on Wed06/16/24 at 1739, For 1 dose active insulin lispro injection 2-12 Units 2-12 Units, subcutaneous, 3 times daily before meals, First dose on Wed06/16/24 at 1740, Indication: Total Daily Dose (TDD) 40 - 80 units. Correction Scale: Moderate Dose Administer with meal and/or mealtime dose of insulin to correct high blood glucose If mealtime insulin dose not given (e.g. pat active ondansetron ODT (ZOFRAN-ODT) disintegrating tablet 4 mg [Order 1 Start] Name: ondansetron ODT (ZOFRAN-ODT) disintegrating tablet 4 mg Signed Summary: 4 mg, oral, Every 8 hours PRN, vomiting, nausea, Starting on Wed06/16/24 at 1747, -Give IV if patient is unable to take orally. -If inadequate response within 30 minutes, proceed to next-line agent or cont active Jardiance 10 mg tablet Take 1 tablet (10 mg total) by mouth in the morning. active Jardiance 10 mg tablet Take 1 tablet (10 mg total) by mouth daily. active JARDIANCE 10 mg tablet Take 1 tablet (10 mg total) by mouth daily. active metronidazole 500 mg tablet Take 1 tablet twice a day by oral route for 7 days. active losartan (COZAAR) 100 mg tablet Take 1 tablet (100 mg total) by mouth daily. active losartan (COZAAR) 100 mg tablet Take 1 tablet (100 mg total) by mouth daily. active promethazine-DMTake 5 ml (oral) every 4-6 hours for 5 [id number] [id number]. 25-15mg/5 mL active Mirena 21 mcg/24 hr (up to 8 years) 52 mg intrauterine device Take 1 device by intrauterine route. active levonorgestreL (Mirena) intrauterine device Mirena 21 mcg/24 hr (up to 8 years) 52 mg intrauterine device active levonorgestreL (MIRENA) IUD Mirena 21 mcg/24 hr (up to 8 years) 52 mg intrauterine device active furosemide (LASIX) 20 mg tablet Take 1 tablet (20 mg total) by mouth in the morning. 2023 active atorvastatin (LIPITOR) 80 mg tablet Take 1 tablet (80 mg total) by mouth daily. 2024 aborted atorvastatin (LIPITOR) 80 mg tablet Take 1 tablet (80 mg total) by mouth daily. active atorvastatin (LIPITOR) tablet 80 mg 80 mg, oral, Nightly, First dose on Wed06/16/24 at 1735 active gabapentin (NEURONTIN) 300 mg capsule Take 1 capsule (300 mg total) by mouth. active gabapentin (NEURONTIN) 300 mg capsule TAKE 1 CAPSULE BY MOUTH THREE TIMES A DAY FOR 90 DAYS active gabapentin (NEURONTIN) 300 mg capsule Take 1 capsule (300 mg total) by mouth 2 (two) times daily with breakfast and dinner. active lidocaine (LIDODERM) 5 % Apply 1 patch topically daily. active triamcinolone acetonide 0.1 % topical ointment APPLY A THIN LAYER TO THE AFFECTED AREA(S) BY TOPICAL ROUTE 2 TIMES PER DAY NEEDED FOR FIVE DAYS or UPT TO TWO WEEKS active spironolactone (Aldactone) 50 mg tablet Take 0.5 tablets (25 mg total) by mouth in the morning and 0.5 tablets (25 mg total) before bedtime. active spironolactone (ALDACTONE) 50 mg tablet Take 1 tablet (50 mg total) by mouth daily. active spironolactone (ALDACTONE) 50 mg tablet Take 1 tablet (50 mg total) by mouth daily. active spironolactone (Aldactone) 50 mg tablet Take 1 tablet (50 mg total) by mouth in the morning and 1 tablet (50 mg total) before bedtime. 024 2023 aborted dulaglutide (TRULICITY) 0.75 mg/0.5 mL Pen Injector Inject 1 Pen (0.75 mg total) under the skin. active dulaglutide (TRULICITY) 0.75 mg/0.5 mL pen injector injection Inject 0.5 mL (0.75 mg total) under the skin. active dulaglutide (TRULICITY) 0.75 mg/0.5 mL subcutaneous pen injector active Trulicity 1.5 mg/0.5 mL subcutaneous pen injector active FreeStyle Patrick 2 Sensor kit USE TO SCAN FOR BLOOD SUGAR AT LEAST 4 TIMES DAILY. E11.65. active EPINEPHrine (EPIPEN) 0.3 mg/0.3 mL injection 0.3 MG INTRAMUSCULARLY ONCE 1 DAYS active metoprolol succinate XL (TOPROL-XL) 100 mg 24 hr tablet Take 100 mg by mouth in the morning. 023 2024 active metoprolol succinate (TOPROL-XL) 24 Hour tablet 100 mg 100 mg, oral, Daily, First dose on Wed06/16/24 at 1735, Do not crush or chew. active norethindrone (Ortho Micronor) 0.35 mg tablet Take 1 tablet by mouth in the morning. active Tresiba FlexTouch U-200 200 unit/mL (3 mL) insulin pen 90 UNITS SUBCUTANEOUS INJECTION DAILY,FOR 30 DAYS, ROTATE INJECTION SITES active clopidogreL (PLAVIX) tablet 75 mg 75 mg, oral, Daily, First dose on Wed06/16/24 at 1734 2023 aborted ibuprofen 600 mg tablet TAKE 1 TABLET (600 MG TOTAL) BY MOUTH EVERY 6 (SIX) HOURS NEEDED FOR PAIN. PLEASE TAKE WITH FOOD 2023 aborted losartan (COZAAR) 50 mg tablet Take 50 mg by mouth in the morning. 2023 active losartan (Cozaar) 100 mg tablet Take 1 tablet (100 mg total) by mouth in the morning. active linaclotide (LINZESS) 72 mcg capsule Take 1 capsule (72 mcg total) by mouth every morning before breakfast. active rifAXIMin (XIFAXAN) 550 MG tablet Take 1 tablet (550 mg total) by mouth 3 (three) times a day. active Ventolin HFA 108 (90 Base) MCG/ACT inhaler INHALE 1 PUFF EVERY 6 HOURS NEEDED FOR SHORTNESS FOR BREATH 30 90 active polyethylene glycol-electrolytes (NuLYTELY, TRILYTE) 420 g solution Take as directed for Colonoscopy/GI Procedure. See administration instructions. active losartan (COZAAR) 50 MG tablet active chlorthalidone (HYGROTON) 50 mg tablet Take 1 tablet (50 mg total) by mouth daily. active chlorthalidone (HYGROTON) 50 MG tablet Take 50 mg by mouth daily. active ezetimibe (ZeTIA) 10 MG tablet Take 10 mg by mouth daily. active ezetimibe (ZETIA) tablet 10 mg 10 mg, oral, Daily, First dose on Wed06/16/24 at 1735 active amLODIPine (NORVASC) 10 mg tablet Take 1 tablet every day by oral route. active amLODIPine (NORVASC) tablet 10 mg 10 mg, oral, Daily, First dose on Wed06/17/24 at 1330 active montelukast (SINGULAIR) 10 MG tablet active atenoloL (TENORMIN) 100 mg tablet Take 100 mg by mouth. 2023 aborted atenolol (TENORMIN) 100 MG tablet Take 100 mg by mouth. active atorvastatin (LIPITOR) 40 mg tablet Take 40 mg by mouth. active atorvastatin (LIPITOR) 40 MG tablet Take 40 mg by mouth. active glucose blood test strip Apply 1 strip topically. active insulin glargine (LANtus/SEMGLEE SOLOSTAR) 100 units/mL prefilled pen injection Inject 75 Units under the skin. active Ventolin HFA 90 mcg/actuation inhaler Inhale 2 puffs by mouth every 6 hours as needed. active Continuous Blood Gluc Sensor (FreeStyle Patrick 2 Sensor) [facility] USE TO SCAN FOR BLOOD SUGAR AT LEAST 4 TIMES DAILY. active levothyroxine (SYNTHROID, LEVOTHROID) 50 MCG tablet Take 50 mcg by mouth. active atenoloL (TENORMIN) 100 mg tablet Take 1 tablet (100 mg total) by mouth. 2024 aborted amoxicillin 500 mg capsule TAKE 1 CAPSULE BY MOUTH EVERY 8 HOURS 2023 completed ibuprofen 600 mg tablet TAKE 1 TABLET (600 MG TOTAL) BY MOUTH EVERY 6 (SIX) HOURS NEEDED FOR PAIN. PLEASE TAKE WITH FOOD 2023 completed oxycodone-acetaminophe n 5 mg-325 mg tablet TAKE 1 TABLET BY MOUTH EVERY 4 HOURS NEEDED FOR PAIN 2023 completed gabapentin 100 mg capsule TAKE 1 CAPSULE BY MOUTH THREE TIMES A DAY 2023 active polyethylene glycol 3350 17 gram/dose oral powder DISSOLVE 1 CAPFUL (17GM) INTO WATER AND DRINK EVERY DAY 2023 completed tobramycin 0.3 %-dexamethasone 0.1 % eye drops,suspension PUT 1 DROP 4 TIMES A DAY INTO RIGHT EYE FOR 7 DAYS 2023 active fluconazole 150 mg tablet PLEASE SEE ATTACHED FOR DETAILED DIRECTIONS 2023 completed nitrofurantoin monohydrate/macrocryst als 100 mg capsule TAKE 1 CAPSULE BY MOUTH TWICE A DAY FOR 5 DAYS 2023 completed norethindrone (contraceptive) 0.35 mg tablet TAKE 1 TABLET BY MOUTH EVERY DAY 2023 completed prednisone 10 mg tablet 2023 completed sulfamethoxazole 800 mg-trimethoprim 160 mg tablet TAKE 1 TABLET BY MOUTH 2 (TWO) TIMES A DAY FOR 3 DOSES. 2023 completed hydroCHLOROthiazide (HYDRODIURIL) tablet Take by mouth. 07/15 active Antifungal (miconazole) 2 % topical cream 2021 completed cephalexin 500 mg capsule TAKE 1 CAPSULE BY MOUTH 4 TIMES A DAY FOR 7 DAYS 2021 completed Flovent HFA 110 mcg/actuation aerosol inhaler 2021 completed fluticasone propionate 50 mcg/actuation nasal spray,suspension 2021 completed FML Forte 0.25 % eye drops,suspension INSTILL 1 DROP INTO LEFT EYE 4 TIMES A DAY 2021 completed Lantus Solostar U-100 Insulin 100 unit/mL (3 mL) subcutaneous pen 2021 completed levocetirizine 5 mg tablet 2021 completed levothyroxine 50 mcg tablet 2021 completed lisinopril 30 mg tablet 2021 completed losartan 50 mg tablet TAKE 1 TABLET BY M OUTH EVERY DAY 2021 completed metoprolol tartrate 50 mg tablet TAKE 1 & 1/2 TABLET BY MOUTH TWICE A DAY 2021 completed montelukast 10 mg tablet 2021 completed mupirocin 2 % topical ointment 2021 completed ondansetron 4 mg disintegrating tablet DISSOLVE 1 TABLET BY MOUTH EVERY 8 HOURS NEEDED FOR NAUSEA AND VOMITING. CT MEDICAID NOT ACCEPTED 2021 completed oxycodone 5 mg tablet 2021 completed peg-electrolyte solution 420 gram oral solution TAKE DIRECTED FOR COLONOSCOPY/GI PROCEDURE. SEE ADMINISTRATION INSTRUCTIONS. 2021 completed tramadol 50 mg tablet TAKE 1 TABLET ORAL LY EVERY 6 HOURS NEEDED FOR SEVERE PAIN ON SCALE OF 7-10 2021 completed triamcinolone acetonide 0.1 % topical cream 2021 completed albuterol sulfateTakeNo date recordedNo form recordedNo frequency recordedNo route recordedNo set duration recordedNo set duration amount recordedactiveNo dosage strength recordedNo dosage strength units of measure recorded active levothyroxineTakeNo date recordedNo form recordedNo frequency recordedNo route recordedNo set duration recordedNo set duration amount recordedactiveNo dosage strength recordedNo dosage strength units of measure recorded active CarafateTakeNo date recordedNo form recordedNo frequency recordedNo route recordedNo set duration recordedNo set duration amount recordedactiveNo dosage strength recordedNo dosage strength units of measure recorded active amlodipineTakeNo carlo e recordedNo form recordedNo frequency recordedNo route recordedNo set duration recordedNo set duration amount recordedactiveNo dosage strength recordedNo dosage strength units of measure recorded active famotidineTakeNo carlo e recordedNo form recordedNo frequency recordedNo route recordedNo set duration recordedNo set duration amount recordedactiveNo dosage strength recordedNo dosage strength units of measure recorded active Aspirin Low DoseTake No date recordedNo form recordedNo frequency recordedNo route recordedNo set duration recordedNo set duration amount recordedactiveNo dosage strength recordedNo dosage strength units of measure recorded active Mirena 21 mcg/24 hr (up to 8 years) 52 mg intrauterine device active metoprolol succinateTakeNo date recordedNo form recordedNo frequency recordedNo route recordedNo set duration recordedNo set duration amount recordedactiveNo dosage strength recordedNo dosage strength units of measure recorded active PlavixTakeNo date recordedNo form recordedNo frequency recordedNo route recordedNo set duration recordedNo set duration amount recordedactiveNo dosage strength recordedNo dosage strength units of measure recorded active Humalog KwikPen InsulinTakeNo date recordedNo form recordedNo frequency recordedNo route recordedNo set duration recordedNo set duration amount recordedactiveNo dosage strength recordedNo dosage strength units of measure recorded active triamcinolone acetonide 0.1 % topical ointment active lisinoprilTakeNo carlo e recordedNo form recordedNo frequency recordedNo route recordedNo set duration recordedNo set duration amount recordedsuspendedNo dosage strength recordedNo dosage strength units of measure recorded suspended amlodipine 10 mg tablet 10 MG ORALLY DAILY active aspirin 81 mg tablet,delayed release TAKE 1 TABLET BY MOUTH EVERY DAY active atenolol 100 mg tablet a ctive atorvastatin 80 mg tablet TAKE 1 TABLET BY MOUTH AT BEDTIME FOR 30 DAYS CHOLESTEROL-LOWERING MEDICATION active chlorhexidine gluconate 0.12 % mouthwash RINSE MOUTH WITH 15ML (1 CAPFUL) FOR 30 SECONDS IN MORNING AND EVENING AFTER BRUSHING, THEN SPIT active chlorthalidone 50 mg tablet TAKE 1 TABLET BY MOUTH EVERY DAY active clopidogrel 75 mg tablet TAKE 1 TABLET BY MOUTH EVERY DAY active cyclobenzaprine 5 mg tablet TAKE 2 TABLETS (10 MG TOTAL) BY MOUTH UP TO 3 TIMES DAILY NEEDED FOR MUSCLE SPASM. active epinephrine 0.3 mg/0.3 mL injection, auto-injector 0.3 MG INTRAMUSCULARLY ONCE 1 DAYS active ezetimibe 10 mg tablet TAKE 1 TABLET BY MOUTH EVERY DAY active furosemide 20 mg tablet TAKE 1 TABLET (20 MG TOTAL) BY MOUTH IN THE MORNING active gabapentin 300 mg capsule TAKE 1 CAPSULE BY MOUTH THREE TIMES A DAY FOR 90 DAYS active Humalog KwikPen (U-100) Insulin 100 unit/mL subcutaneous TAKE DIRECTED UP TO 30UNITS PER SLIDING SCALE THREE TIMES DAILY BEFORE MEALS active hydralazine 100 mg tablet TAKE 1 TABLET BY MOUTH TWICE A DAY FOR 30 DAYS 90 DAYS active hydralazine 50 mg tablet TAKE 1 TABLET BY MOUTH TWICE A DAY active hydrochlorothiazide 25 mg tablet TAKE 1 TABLET BY MOUTH EVERY DAY IN THE MORNING FOR 30 DAYS active lidocaine 5 % topical patch APPLY 1 PATCH DAILY EXTERNALLY AND REMOVE AFTER 12 HOURS FOR 30 DAYS. active Linzess 72 mcg capsule TAKE 1 CAPSULE BY MOUTH EVERY MORNING BEFORE BREAKFAST. active losartan 100 mg tablet TAKE 1 TABLET BY MOUTH EVERY DAY active metoprolol succinate ER 100 mg tablet,extended release 24 hr TAKE 1 TABLET BY MOUTH EVERY DAY active metronidazole 0.75 % (37.5 mg/5 gram) vaginal gel PLEASE SEE ATTACHED FOR DETAILED DIRECTIONS active nystatin-triamcinolone 100,000 unit/gram-0.1 % topical ointment APPLY TO AFFECTED AREA TWICE A DAY active promethazine-DM 6.25 mg-15 mg/5 mL oral syrup TAKE 5 ML BY MOUTH EVERY 4 TO 6 HOURS FOR 5 DAYS active spironolactone 50 mg tablet TAKE 0.5 TABLETS (25 MG TOTAL) BY MOUTH IN THE MORNING AND 0.5 TABLETS (25 MG TOTAL) BEFORE BEDTIME. active Tresiba FlexTouch U-200 insulin 200 unit/mL (3 mL) subcutaneous pen INJECT 15 UNITS SUBCUTANEOUSLY DAILY... ROTATE INJECTION SITES active Trulicity 0.75 mg/0.5 mL subcutaneous pen injector TAKE TWO OF THE 0.5 ML (0.75MG) SUBCUTANEOUS INJECTION EVERY WEEK (TO TOTAL 1.5MG WEEKLY) active Ventolin HFA 90 mcg/actuation aerosol inhaler INHALE 2 PUFFS EVERY 4 HOURS NEEDED active amLODIPine (NORVASC) 10 mg tablet Take 1 tablet (10 mg total) by mouth daily. activ e amLODIPine (NORVASC) 10 MG tablet every 24 hours. active amlodipine 10 mg tablet TAKE 1 TABLET BY MOUTH EVERY DAY TAKE 1 TABLET BY MOUTH EVERY DAY completed aspirin 81 mg EC delayed release tablet Take 1 tablet (81 mg total) by mouth daily. activ e aspirin 81 mg EC tablet Take 81 mg by mouth in the morning. active aspirin 81 mg tablet,delayed release TAKE 1 TABLET BY MOUTH EVERY DAY TAKE 1 TABLET BY MOUTH EVERY DAY completed aspirin enteric coated (ECOTRIN LOW STRENGTH) 81 MG EC tablet Take 81 mg by mouth daily. active atenolol 100 mg tablet atenolol 100 mg tablet completed Chantale Low Dose Aspirin 81 mg tablet,delayed release Take 1 tablet every day by oral route. Take 1 tablet every day by oral route. completed BD Ultra-Fine Short Pen Needle 31 gauge x 5/16 USE TO INJECT 4 TIMES A DAY WITH INSULIN USE TO INJECT 4 TIMES A DAY WITH INSULIN completed Cuca 0.35 mg tablet Take 1 tablet every day by oral route. Take 1 tablet every day by oral route. completed chlorthalidone (HYGROTEN) 50 mg tablet Take 1 tablet (50 mg total) by mouth daily. activ e chlorthalidone (HYGROTEN) 50 mg tablet Take 50 mg by mouth in the morning. active chlorthalidone 50 mg tablet TAKE 1 TABLET BY MOUTH EVERY DAY TAKE 1 TABLET BY MOUTH EVERY DAY completed clopidogreL (PLAVIX) 75 mg tablet Take 1 tablet (75 mg total) by mouth daily. activ e clopidogreL (PLAVIX) tablet Take 75 mg by mouth in the morning. active clopidogrel 75 mg tablet TAKE 1 TABLET BY MOUTH EVERY DAY TAKE 1 TABLET BY MOUTH EVERY DAY completed dulaglutide (TRULICITY) 0.75 MG/0.5ML prefilled pen injection Inject 0.75 mg under the skin once a week. active ezetimibe (ZETIA) 10 mg tablet Take 1 tablet (10 mg total) by mouth daily. activ e gabapentin 100 mg capsule gabapentin 100 mg capsule completed hydrALAZINE (APRESOLINE) 100 MG tablet Take 100 mg by mouth 2 (two) times a day with meals. active hydrALAZINE (APRESOLINE) 25 mg tablet Take 50 mg by mouth in the morning and 50 mg before bedtime. active hydrALAZINE (APRESOLINE) 25 mg tablet Take 2 tablets (50 mg total) by mouth. active hydrALAZINE (APRESOLINE) 25 mg tablet Take 25 mg by mouth in the morning and 25 mg before bedtime. active ibuprofen 600 mg tablet ibuprofen 600 mg tablet completed insulin glargine (SEMGLEE) 100 unit/mL injection Inject 90 Units under the skin. active insulin lispro (HumaLOG) 100 units/mL injection Inject under the skin. ac tive insulin lispro (U-100) 100 unit/mL subcutaneous pen INJECT 25 UNITS SUBCUTANEOUSLY 3 TIMES A DAY BEFORE MEALS INJECT 25 UNITS SUBCUTANEOUSLY 3 TIMES A DAY BEFORE MEALS completed Lasix 20 mg tablet Take 1 tablet (20 mg total) by mouth daily. activ e LASIX 20 mg tablet Take 1 tablet (20 mg total) by mouth daily. activ e lidocaine (LIDODERM) 5 % patch Apply 1 patch topically in the morning. active linaCLOtide (LINZESS) 72 mcg capsule PRN as needed active Linzess 72 mcg capsule TAKE 1 CAPSULE BY MOUTH EVERY MORNING BEFORE BREAKFAST. active lisinopril (PRINIVIL,ZeSTRIL) 30 MG tablet Take 30 mg by mouth. acti ve losartan (COZAAR) 100 MG tablet Take 100 mg by mouth daily. active metoprolol succinate ER 100 mg tablet,extended release 24 hr TAKE 1 TABLET BY MOUTH EVERY DAY TAKE 1 TABLET BY MOUTH EVERY DAY completed metoprolol succinate XL (TOPROL-XL) 100 mg 24 hr tablet Take 1 tablet (100 mg total) by mouth daily. activ e metoPROLOL TARTRATE (LOPRESSOR) 100 MG tablet Take 100 mg by mouth daily. active metronidazole 0.75 % (37.5 mg/5 gram) vaginal gel Insert 1 applicatorful every day by vaginal route for 5 days. Insert 1 applicatorful every day by vaginal route for 5 days. completed metronidazole 500 mg tablet TAKE 1 TABLET BY MOUTH TWICE A DAY FOR 7 DAYS TAKE 1 TABLET BY MOUTH TWICE A DAY FOR 7 DAYS compl eted No known medications No known medications active polyethylene glycol 3350 17 gram/dose oral powder DISSOLVE 1 CAPFUL (17GM) INTO WATER AND DRINK EVERY DAY DISSOLVE 1 CAPFUL (17GM) INTO WATER AND DRINK EVERY DAY completed prednisone 10 mg tablet prednisone 10 mg tablet completed ProAir HFA 90 mcg/actuation aerosol inhaler INHALE 1 PUFF EVERY 6 HOURS NEEDED FOR SHORTNESS FOR BREATH 30 90 INHALE 1 PUFF EVERY 6 HOURS NEEDED FOR SHORTNESS FOR BREATH 30 90 completed spironolactone (ALDACTONE) 50 MG tablet Take 50 mg by mouth daily. active torsemide (DEMADEX) 10 MG tablet Take 10 mg by mouth daily. active Tresiba FlexTouch U-200 insulin 200 unit/mL (3 mL) subcutaneous pen INJECT 65 UNITS SUBCUTANEOUSLY EVERY NIGHT INJECT 65 UNITS SUBCUTANEOUSLY EVERY NIGHT completed VENTOLIN HFA 90 mcg/actuation HFA aerosol inhaler Inhale 2 puffs into the lungs every 6 (six) hours as needed for wheezing. active Ventolin HFA 90 mcg/actuation inhaler Inhale 2 puffs every 4 (four) hours as needed. active Allergies Allergen Reaction Severity Comment Documented Date Source Statu s SHELLFISH ALLERGY UNKNOWN/PATIENT AND FAMILY UNABLE TO DEFINE 09/08/2017 [facility] active SHELLFISH CONTAINING PRODUCTS SHORTNESS OF BREATH 09/08/2017 [facility] active SHELLFISH DERIVED SHORTNESS OF BREATH 09/08/2017 [facility] active OTHER OTHER (SEE COMMENTS) Seasonal allergy 01/10/2008 [facility] active SEASONAL ALLERGIES NASAL CONGESTION 01/10/2008 [facility] active Problems Problem Status Onset Date Problem Type Date of Resolution Source hypertension active ProblemAct [facility] Diabetes active ProblemAct [facility] COVID-19 active 2023-12-21 5 ProblemAct [facility] Irritable bowel syndrome with both constipation and diarrhea active 2022-07-23 3 [facility]Act [facility] Change in bowel habits active 2021-10-20 5 ProblemAct [facility] Combined form of age-related cataract, both eyes active EncounterDiagnosisAct [facility] Hepatic steatosis active 2022-03-22 7 ProblemAct [facility] Dysphagia active 2021-10-20 5 ProblemAct [facility] Abdominal bloating active 2021-10-20 5 ProblemAct [facility] Early satiety active 2021-10-20 5 ProblemAct [facility] Diplopia active 2024-05-22 7 ProblemAct [facility] Hypertension active 2 ProblemAct [facility] Diabetes active 2024-09-19 4 ProblemAct [facility] Sore throat active EncounterDiagnosisAct [facility] Asthma active 2 ProblemAct [facility] Hypercholesteremia active 2010-04-21 8 ProblemAct [facility] CAD in [place] artery active 2024-09-19 4 ProblemAct [facility] Acute on chronic diastolic heart failure active 2024-10-19 4 [facility]Act [facility] Heart failure with mid-range ejection fraction (HFmEF) active 2024-07-22 7 ProblemAct [facility] HLD (hyperlipidemia) active 2024-10-19 4 ProblemAct [facility] History of myocardial infarction active 2021-04-22 2 ProblemAct [facility] Renovascular hypertension active 2024-07-22 7 ProblemAct [facility] Stroke-like symptoms active EncounterDiagnosisA ct [facility] Immunizations Vaccine Date Source Lot Number Status Influenza, injectable, quadr ivalent, preservative free 04/20/2022 [facility] [id number] completed COVID-19 mRNA (PFIZER) 11/10/2021 [facility] co mpleted COVID-19 mRNA ([employer]) 11/10/2021 [facility] co mpleted Influenza, injectable, quadr ivalent, preservative free 05/08/2021 [facility] [id number] completed Pfizer SARS-CoV-2 COVID-19, mRNA, LNP-S, preservative free 03/27/2021 [facility] [id number] completed Pfizer SARS-CoV-2 COVID-19, mRNA, LNP-S, preservative free 03/06/2021 [facility] [id number] completed Pneumococcal polysaccharide PPSV23 05/05/2016 [facility] M [id number] completed Pneumococcal Polysaccharide PCV-23 08/24/2013 [facility] J [id number] completed Pneumococcal Polysaccharide PCV-23 08/24/2013 [facility] J [id number] completed Influenza, split virus, triv alent, Preservative Free 03/08/2013 [facility] [id number] completed Tdap 03/08/2013 [facility] [id number] completed Tdap 03/08/2013 [facility] [id number] completed Influenza, split virus, triv alent, Preservative Free 03/13/2011 [facility] [id number] completed PPD Test 02/03/2010 [facility] [id number] completed PPD Test 02/03/2010 [facility] [id number] completed H1N1 Inj Preservative Free 05/06/2009 [facility] [id number] completed H1N1 Inj Preservative Free 05/06/2009 [facility] [id number] completed Td 05/07/2008 [facility] completed Td 05/07/2008 [facility] completed HPV, Quadrivalent 07/28/2007 [facility] 1448U complet ed HPV, Quadrivalent 07/28/2007 [facility] 1448U complet ed Hepatitis B 11/25/2005 [facility] [id number] completed Hepatitis B 11/25/2005 [facility] [id number] completed Td 09/19/2005 [facility] completed Td 09/19/2005 [facility] completed Encounters Encounter Type Encounter Reason Primary Diagnosis Location Date Ambulatory Proteinuria, unspecified Proteinuria, unspecified Formerly [facility] 02/27/2025 Ambulatory Other chest pain Other chest pain Formerly [facility] 02/23/2025 Ambulatory Other chest pain Other chest pain Formerly [facility] 01/03/2025 Ambulatory Other Other [facility] 12/31/2024 Ambulatory [facility] 12/05/2024 Ambulatory Chronic systolic (congestive) heart fail Chronic systolic (congestive) heart failure Formerly [facility] 11/08/2024 Ambulatory Chronic systolic (congestive) heart fail Chronic systolic (congestive) heart failure Formerly [facility] 11/02/2024 Ambulatory Chronic systolic (congestive) heart fail Chronic systolic (congestive) heart failure Formerly [facility] 11/01/2024 Ambulatory [facility] 10/03/2024 Ambulatory Acute pharyngitis Acute pharyngitis [facility] 10/02/2024 Ambulatory Non-ST elevation (NSTEMI) myocardial inf Non-ST elevation (NSTEMI) myocardial infarction Formerly [facility] 09/04/2024 Ambulatory Shortness of Breath Shortness of Breath [facility] [facility]24 Ambulatory Heart failure, unspecified Heart failure, unspecified [facility] 06/20/2024 Inpatient Transfer from [facility] 06/16/2024 Emergency FACIAL EYE DROOP DIZZY Unspecifi ed symptoms and signs involving the nervous system [facility] 06/16/2024 Ambulatory Unspecified ptosis o f eyelid Unspecified ptosis of eyelid [facility] 06/16/2024 Ambulatory Encounter for test, result negative Encounter for test, result negative [facility] 05/23/2024 Ambulatory Cardiomyopathy, unspecified Cardiomyopathy, unspecified [facility] 05/23/2024 Ambulatory Cardiomyopathy, unspecified Cardiomyopathy, unspecified [facility] 05/03/2024 Ambulatory Renovascular hypertension Renovascular hypertension [facility] 04/27/2024 Ambulatory Essential (primary) hypertension Essential (primary) hypertension [facility] 02/22/2024 Ambulatory Proteinuria, unspecified Proteinuria, unspecified [facility] 01/19/2024 Ambulatory Encntr for sample processor exam (general) (routine) w/o abn findings Encntr for sample processor exam (general) (routine) w/o abn findings [facility] 12/13/2023 Ambulatory Proteinuria, unspecified Proteinuria, unspecified [facility] 12/06/2023 Ambulatory Abnormal uterine and vaginal bleeding, unspecified Abnormal uterine and vaginal bleeding, unspecified [facility] 10/18/2023 Ambulatory Essential (primary) hypertension Essential (primary) hypertension [facility] 08/04/2023 Ambulatory Proteinuria, unspecified Proteinuria, unspecified [facility] 07/15/2023 Ambulatory [facility] 07/15/2023 Ambulatory Atherosclerosis of renal artery Atherosclerosis of renal artery [facility] 04/21/2023 Ambulatory Atherosclerosis of renal artery Atherosclerosis of renal artery [facility] 04/05/2023 Ambulatory Atherosclerosis of renal artery Atherosclerosis of renal artery [facility] 03/18/2023 Ambulatory Mixed irritable bowel syndrome [facility] 08/13/2022 Ambulatory Change in bowel habit [facility] 04/16/2022 Ambulatory [facility] 02[facility]26/2022 Ambulatory [facility] 02/19/2022 Ambulatory [facility] 02/12/2022 Ambulatory [facility] 01/30/2022 Ambulatory [facility] 01/12/2022 Ambulatory Change in bowel habit [facility] 11/12/2021 Ambulatory Mastodynia [facility] 09/09/2021 Care Team Organization Name Specialty Phone Email Start Date End Da te [facility] Nikki Mancilla [facility] 06/20/2024 [facility] Nikki Arvmer Primary Care 06/18/2024 [facility] Nikki Arvmer Primary Care 06/16/2024 [facility] Nikki Arvmer Primary Care 06/16/2024 [facility] 06/16/2024 [facility] NO PROVIDER Primary Care 01/12/2024 [facility] NO PROVIDER Primary Care 01/12/2024 [place] [facility] 10/19/2023 [facility] PCP [address] Judge 07/11/2023 [facility] [place] Laura BACK Primary Care 06/23/2023 [facility] GLENROY PCP Primary Care 03/18/2023 [facility] [place] [facility] 09/28/2022 [facility] [place] [facility] 07/13/2022 [facility] Primary Care 04/28/2022 02/07/20 [facility] 04/22/2022 [place] [facility] NIKKI MANCILLA Primary Care 04/16/2022 01/29/2025 [facility] 03/31/2022 [facility] 01/12/202202/26 [facility] 09/09/202103/22 [place] [facility] NIKKI MANCILLA Primary Care 09/09/2021 04/16/2022
--- OUTSIDE RECORDS SUMMARY | 2025-03-23 10:19 | XMS_ITS | Clinical Summary ---
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 Active amLODIPine (NORVASC) 10 mg tablet Take 1 tablet (10 mg total) by mouth daily. Active aspirin 81 mg EC delayed release tablet Take 1 tablet (81 mg total) by mouth daily. Active chlorthalidone (HYGROTEN) 50 mg tablet Take 1 tablet (50 mg total) by mouth daily. Active clopidogreL (PLAVIX) 75 mg tablet Take 1 tablet (75 mg total) by mouth daily. Active JARDIANCE 10 mg tablet Take 1 tablet (10 mg total) by mouth daily. 4 Active dulaglutide (TRULICITY) 0.75 mg/0.5 mL Pen Injector Inject 1 Pen (0.75 mg total) under the skin. 4 Active ezetimibe (ZETIA) 10 mg tablet Take 1 tablet (10 mg total) by mouth daily. Active LASIX 20 mg tablet Take 1 tablet (20 mg total) by mouth daily. Active gabapentin (NEURONTIN) 300 mg capsule Take 1 capsule (300 mg total) by mouth 2 (two) times daily with breakfast and dinner. 4 Active losartan (COZAAR) 100 mg tablet Take 1 tablet (100 mg total) by mouth daily. 4 Active spironolactone (ALDACTONE) 50 mg tablet Take 1 tablet (50 mg total) by mouth daily. 4 Active FREESTYLE DOYLE 3 SENSOR device USE TO SCAN FOR BLOOD SUGAR AT LEAST 4 TIMES DAILY. E11.65. CHANGE EVERY 14 DAYS. 5 Active hydrALAZINE (APRESOLINE) 25 mg tablet Take 2 tablets (50 mg total) by mouth. Active levonorgestreL (MIRENA) IUD Mirena 21 mcg/24 hr (up to 8 years) 52 mg intrauterine device 4 Active lidocaine (LIDODERM) 5 % Apply 1 patch topically daily. 4 Active linaCLOtide (LINZESS) 72 mcg capsule PRN as needed Acti ve Active Problems Problem Noted Date Diagnosed Date CAD in [place] artery 10/02/2024 Diabetes 10/02/2024 Hepatic steatosis 04/16/2022 Hypercholesteremia 05/08/2010 Hypertension 10/20/2005 Overview (10/02/2024): related to Asthma 05/22/2005 Immunizations Immunization Administration Dates Next Due COVID-19 Vaccine - PFIZER 11/10/2021 HPV, quadrivalent 07/28/2007 Hep B, adult (Engerix/Recombivax) 11/25/2005 Influenza, injectable, quadrivalent, preservativ e free 04/20/2022,05/08/2021 Influenza, split virus, trivalent, Preservative Free 03/08/2013,03/13/2011 Pneumococcal polysaccharide PPSV23 05/05/2016, Tdap 03/08/2013 Family History Relation Name Status Comments Father Mother Social History Tobacco Use Types Packs/Day Years Used Date Smoking Tobacco: Never Smokeless Tobacco: Never Tobacco Cessation:Counseling Given: Not Answered Alcohol Use Standard Drinks/Week Comments Never 0 (1 standard drink = 0.6 oz pur e alcohol) Comments Unknown Sex and Gender Information Value Date Recorded Sex Assigned at Not on file Legal Sex Female 1:34 AM EDT Gender Identity Not on file Sexual Orientation Not on file Last Filed Vital Signs Vital Sign Reading Time Taken Comments Blood Pressure 174/100 10/02/2024 10:23 AM EDT Patient states that this is a normal BP for her and she has alreadt taken the BP medication this morning Pulse 83 10/02/2024 10:23 AM EDT Temperature 36.6 C (97.9 F) 10/02/2024 10:23 AM EDT Respiratory Rate 16 10/02/2024 10:2 3 AM EDT Oxygen Saturation 99% 10/02/2024 10: 23 AM EDT Inhaled Oxygen Concentration - - Weight 120.2 kg (265 lb) 10/02/2024 10: 23 AM EDT Height 162.6 cm (5' 4 ) 06/16/2024 10:1 8 AM EST Body Mass Index 45.49 06/16/2024 10:18 AM EST Plan of Treatment Health Maintenance Due Date Last Done Comments Diabetic foot exam 1990 Hemoglobin A1C 1990 LDL monitoring 1990 Urine Microalbumin 1990 HIV screening 1993 Hepatitis C screening 1998 Hepatitis B vaccine series (2 of 3 - Hep B Twinrix 3-dose series) 12/23/2005 11/25/2005 Diabetic eye exam 03/25/2016 03/25/2015, , 08/27/2011 Pneumococcal Vaccine (2 - 49 years) (2 of 2 - PCV) 05/05/2017 05/05/2016, 08/24/2013 Tetanus adult (Td q 10,TDAP once) 03/08/2023 03/08/2013 Influenza vaccine 01/19/2025 04/20/2022, , 03/08/2013, Additional history exists Covid-19 vaccine series ( season) 2025 11/10/2021, 03/27/2021, 03/06/2021 Breast cancer screening 09/26/2025 09/27/2023, 09/24 Cervical cancer screening 10/17/2028 10/18/2023 RSV Immunization (1 - 1-dose 75+ series) 10/27/2055 Meningococcal B Vaccine Aged Out No l onger eligible based on patient's age to complete this topic Meningococcal Vaccine Aged Out No asmita chepe eligible based on patient's age to complete this topic Insurance [place] Care Teams Silviculture Professor Relationship Specialty Start Date End Date No, Pcp (Do Not Change Name) PCP - General 06/16/24
--- OUTSIDE RECORDS SUMMARY | 2025-03-23 10:19 | XMS_ITS | Patient Health Record ---
Author Organization [facility] [employer] [facility] Address [address] [place] [address] Care Team Providers Care Leather Splitter Name Role Phone Laura Kearney Primary Care Provider Simone Tamayo Unavailable [phone] Allergies Allergen (clinical drug ingredient) Drug/Non Drug Allergy documented on EMR Reaction Allergy Type Onset Date Status Shellfish (FN) SHELLFISH (uncoded) anaphylaxis Allergy Active Results Component Value Reference Range Notes Comp Metabolic Panel w/eGFR 01032 Reviewed date:2024 08:38:12 AM Interpretation:eGFR 42 Performing Lab:NL1, , [address] [place], [address] Kevin Marcus M.D. Notes/Report: Received Date: 0 GLUCOSE 164 65-99 mg/dL Fasting reference interval For someone without known diabetes, a glucose value >125 mg/dL indicates that they may have diabetes and this should be confirmed with a follow-up test. UREA NITROGEN (BUN) 27 7-25 mg/dL CREATININE 1.57 0.50-0.99 mg/dL EGFR 42 > OR = 60 mL/min/1.73m2 BUN/CREATININE RATIO 17 6-22 (calc) SODIUM 138 135-146 mmol/L POTASSIUM 4.2 3.5-5.3 mmol/L CHLORIDE 107 98-110 mmol/L CARBON DIOXIDE 24 20-32 mmol/L CALCIUM 8.7 8.6-10.2 mg/dL PROTEIN, TOTAL 6.4 6.1-8.1 g/dL ALBUMIN 3.1 3.6-5.1 g/dL GLOBULIN 3.3 1.9-3.7 g/dL (calc) ALBUMIN/GLOBULIN RATIO 0.9 1.0-2.5 (calc) BILIRUBIN, TOTAL 0.6 0.2-1.2 mg/dL ALKALINE PHOSPHATASE 113 31-125 U/L AST 15 10-30 U/L ALT 14 6-29 U/L CT Scan: Neck, w/ IV Contras t Reviewed date:11/28/2024 03:06:17 PM Interpretation:Normal Performing Lab: Notes/Report: Normal Lipid Panel w/refl LDL 51241 Reviewed date:05/08/2024 12:11:53 PM Interpretation:ldl 202 Performing Lab:NL1, , [address] [place], [address] Kevin Marcus M.D. Notes/Report: Received Date: 0; 0; 0; 0; 0 FASTING:NO FASTING: NO CHOLESTEROL, TOTAL 280 <200 mg/dL HDL CHOLESTEROL 41 > OR = 50 mg/dL TRIGLYCERIDES 194 <150 mg/dL LDL-CHOLESTEROL 202 LDL-C levels > or = 190 mg/dL may indicate familial hypercholesterolemia (FH). Clinical assessment and measurement of blood lipid levels should be considered for all first degree relatives of patients with an FH diagnosis. LDL Cholesterol (LDL-C) levels > or = 300 mg/dL may indicate homozygous familial hypercholesterolemia (HoFH). Untreated, these extremely high LDL-C levels can result in premature CV events and mortality. Patients should be identified early and provided appropriate interventions to reduce the cumulative LDL-C burden from . For questions about testing for familial hypercholesterolemia, please call [employer] at [email or web address].[email or web address]. Sandy T, et al. J National Lipid Association Recommendations for Patient-Centered Management of Dyslipidemia: Part 1 Journal of Clinical Lipidology 2015;9(2), 129-169. Kings Flores et al. (2014). Homozygous familial hypercholesterolaemia: new insights and guidance for clinicians to improve detection and clinical management. Heart Journal, 35(32), 0887-7383. Reference range: <100 Desirable range <100 mg/dL for primary prevention; <70 mg/dL for patients with CHD or diabetic patients with > or = 2 CHD risk factors. LDL-C is now calculated using the Jonathan-Bety calculation, which is a validated novel method providing better accuracy than the Friedewald equation in the estimation of LDL-C. Jonathan BETHEA et al. SANDRA. 2013;310(19): 4040-8020 (http://education.The Political StudentDiagnENJOREi LendPro.com/faq/DCF117) CHOL/HDLC RATIO 6.8 <5.0 (calc) NON HDL CHOLESTEROL 239 <130 mg/dL (calc) Non-HDL level > or = 220 is very high and may indicate genetic familial hypercholesterolemia (FH). Clinical assessment and measurement of blood lipid levels should be considered for all first-degree relatives of patients with an FH diagnosis. For patients with diabetes plus 1 major ASCVD risk factor, treating to a non-HDL-C goal of <100 mg/dL (LDL-C of <70 mg/dL) is considered a therapeutic option. Hemoglobin A1c 496 Reviewed date:05/08/2024 12:11:53 PM Interpretation:7.2 Performing Lab:NL1, , [address] [place], [address] Kevin Marcus M.D. Notes/Report: Received Date: [id number] 0; 0; 0; 0; 0 FASTING:NO FASTING: NO HEMOGLOBIN A1c 7.2 <5.7 % of total Hgb For someone without known diabetes, a hemoglobin A1c value of 6.5% or greater indicates that they may have diabetes and this should be confirmed with a follow-up test. For someone with known diabetes, a value <7% indicates that their diabetes is well controlled and a value greater than or equal to 7% indicates suboptimal control. A1c targets should be individualized based on duration of diabetes, age, comorbid conditions, and other considerations. Currently, no consensus exists regarding use of hemoglobin A1c for diagnosis of diabetes for children. TSH w/Free T4 rfx 01463 Reviewed date:05/08/2024 12:11:53 PM Interpretation: Normal Performing Lab:NL1, , [address] [place], [address] Kevin Marcus M.D. Notes/Report: Received Date: [id number] 0; 0; 0; 0; 0 FASTING:NO FASTING: NO TSH W/REFLEX TO FT4 4.16 Reference Range > or = 20 Years 0.40-4.50 Ranges First trimester 0.26-2.66 Second trimester 0.55-2.73 Third trimester 0.43-2.91 CBC (Includes Diff/Plt) 6399 Reviewed date:05/08/2024 12:11:53 PM Interpretation:9.8 micorcytic Performing Lab:NL1, , [address] [place], [address] Kevin Marcus M.D. Notes/Report: Received Date: 0; 0; 0; 0; 0 FASTING:NO FASTING: NO WHITE BLOOD CELL COUNT 10.4 3.8-10.8 Thousand/ uL RED BLOOD CELL COUNT 4.03 3.80-5.10 Million/uL HEMOGLOBIN 9.8 11.7-15.5 g/dL HEMATOCRIT 32.0 35.0-45.0 % MCV 79.4 80.0-100.0 fL MCH 24.3 27.0-33.0 pg MCHC 30.6 32.0-36.0 g/dL For adults, a slight decrease in the calculated MCHC value (in the range of 30 to 32 g/dL) is most likely not clinically significant; however, it should be interpreted with caution in correlation with other red cell parameters and the patient's clinical condition. RDW 14.4 11.0-15.0 % PLATELET COUNT 381 140-400 Thousand/uL MPV 12.7 7.5-12.5 fL ABSOLUTE NEUTROPHILS 6126 5822-4289 cells/uL ABSOLUTE LYMPHOCYTES 2964 850-3900 cells/uL ABSOLUTE MONOCYTES 1061 200-950 cells/uL ABSOLUTE EOSINOPHILS 187 15-500 cells/uL ABSOLUTE BASOPHILS 62 0-200 cells/uL NEUTROPHILS 58.9 LYMPHOCYTES 28.5 MONOCYTES 10.2 EOSINOPHILS 1.8 BASOPHILS 0.6 Comp Metabolic Panel w/eGFR 10009 Reviewed date:05/08/2024 12:11:52 PM Interpretation:gfr 45 Performing Lab:NL1, , [address] [place], [address] Kevin Marcus M.D. Notes/Report: Received Date: 0; 0; 0; 0; 0 FASTING:NO FASTING: NO GLUCOSE 123 65-139 mg/dL Non-fasting reference interval UREA NITROGEN (BUN) 27 7-25 mg/dL CREATININE 1.48 0.50-0.99 mg/dL EGFR 45 > OR = 60 mL/min/1.73m2 BUN/CREATININE RATIO 18 6-22 (calc) SODIUM 136 135-146 mmol/L POTASSIUM 5.0 3.5-5.3 mmol/L CHLORIDE 101 98-110 mmol/L CARBON DIOXIDE 29 20-32 mmol/L CALCIUM 9.4 8.6-10.2 mg/dL PROTEIN, TOTAL 6.5 6.1-8.1 g/dL ALBUMIN 3.1 3.6-5.1 g/dL GLOBULIN 3.4 1.9-3.7 g/dL (calc) ALBUMIN/GLOBULIN RATIO 0.9 1.0-2.5 (calc) BILIRUBIN, TOTAL 0.3 0.2-1.2 mg/dL ALKALINE PHOSPHATASE 103 31-125 U/L AST 10 10-30 U/L ALT 10 6-29 U/L Reason For Referral Reason 43 year old female w ith over a month of unilateral pain when swallowing. Diagnosis 1 Pharyngeal dysphagia (R13.13) Referral Organization [facility] Referring Provider First Name Laura Referring Provider Last Name Christel Referring Provider Speciality Family [facility] ctice Referred Provider Specialty ENT eConsult General Notes Dayana Barron 05:00:15 PM >, Nani Rogers Referral Terrence Kiser 10/12/2024 08:27:43 PM >Submitted to [facility] Clinical Notes Karl IC Electric Scoop OperatorVivian 10/13/2024 10:25:52 AM >Consult received. Further Workup or Testing by PCP Recommended Referral Priority Routine Medications Medication SIG (Take, Route, Frequency, Duration) Notes Start Date End Date Status Lidocaine 5 % APPLY 1 PATCH DAILY EXTERNALLY AND REMOVE AFTER 12 HOURS FOR 30 DAYS. for 30 Active Spironolactone 50 MG 1 tablet Orally twi ce a day Active Aspirin Low Dose 81 MG TAKE 1 TABLET BY MOUTH EVERY DAY for 90 Active Ezetimibe 10 MG 1 tablet Orally Once a day Active Losartan Potassium 100 MG 2 tablets Orally Once a day for 90 days Active hydrALAZINE HCl 100 MG 1 tablet with food Orally Twice a day for 90 days Active Plavix 75 MG 1 tab(s) orally once a day Active Amoxicillin 875 MG 1 tablet Orally Twic e a day for 5 days 09/06/2024 Active Chlorthalidone 50 MG 1 tab(s) orally onc e a day for 90 Active Jardiance 10 MG 1 tablet Orally Once a day Active EpiPen 2-Ld 0.3 MG/0.3ML 0.3 mg intramuscularly once for 1 days 11/12/2017 Active Atorvastatin Calcium 80 MG 1 tablet Orally Once a day Active Gabapentin 300 MG 1 capsule Orally Three times a day for 90 days dose increase Active Lasix 20 MG 1 tablet Orally Once a day Active Trulicity 0.75 MG/0.5ML 0.75 mg Subcutaneous as directed Active amLODIPine Besylate 10 MG 1 tab(s) orally once a day Active BLOOD PRESSURE CUFF, 1 XX TOPICAL (DIAGNOSIS I 10.0) DAILY AND NEEDED BLOOD PRESSURE READING for 365 DAYS *DC or Stop and Enter Medication back* 05/23/2017 Active Metoprolol Succinate ER 100 MG 1 tab(s) orally once a day for 30 day(s) Active Ventolin HFA 108 (90 Base) MCG/ACT 1 puff as needed Inhalation every 4 hrs for 90 days Active Immunizations Vaccine Route Administration Date Status Comme nts COVID-19 Neftaly Vaccine (Declined) Unknown 08/17/2022 Refused COVID-19 Neftaly Vaccine (Declined) Unknown 05/24/2023 Refused COVID-19 Moderna Vaccine (Declined) Unknown 08/17/2022 Refused COVID-19 Moderna Vaccine (Declined) Unknown 05/24/2023 Refused COVID-19 Pfizer BioNTech Vac cine (Declined) Unknown 08/17/2022 Refused COVID-19 Pfizer BioNTech Vac cine (Declined) Unknown 05/24/2023 Refused COVID-19 Pfizer BioNTech Vac cine (Historical) Unknown 03/06/2021 Administered COVID-19 Pfizer BioNTech Vac cine (Historical) Unknown 03/27/2021 Administered Hep B (Historical Adult) Unknown 11/25/2005 Administere d HPV (Historical) Unknown 07/28/2007 Administered Influenza (Declined) Unknown 11/12/2017 Refused Influenza (Declined) Unknown 04/18/2018 Refused Influenza (Declined) Unknown 08/17/2022 Refused Influenza (Declined) Unknown 10/31/2024 Refused Influenza (Historical) Unknown 03/13/2011 Administered Influenza (Historical) Unknown 03/08/2013 Administered Influenza H1N1 (Historical) Unknown 05/06/2009 Administ ered Pneumococcal (Historical Typ e Unknown) Unknown 08/24/2013 Administered PPD Placed Unknown 02/03/2010 Administered Td 2Lf (Historical) Unknown 09/19/2005 Administered Td 2Lf (Historical) Unknown 05/07/2008 Administered Tdap (Historical) Unknown 03/08/2013 Administered Social History Tobacco Use: Social History Observation Description Date Details (start date - stop date) Never Smoker NA - NA Sex Assigned At : Social History Observation Description Sex Assigned At Female Tobacco Control (Standard) Question Answer Notes Tobacco use: Nonsmoker Problems Problem Type SNOMED Code ICD Code Onset Dates Problem Status W/U Status Risk Notes Problem Abnormal blood pressure (84689649) Encounter for examination of blood pressure with abnormal findings (Z01.31) 2024 Active confirmed Problem Body mass index 40+ - severely obese (706136563) Body mass index (BMI) 45.0-49.9, adult (Z68.42) 2024 Active confirmed Problem Body mass index 40+ - morbidly obese (601841614) Body mass index (BMI) 50-59.9, adult (Z68.43) 2024 Active confirmed Problem 232148608 Other headache syndrome (G44.89) Active confirmed Problem Obesity (849849515) Obesity (E66.9) Active confirmed Problem Hypertension (53708996) Hypertension (I10) Active confirmed Problem 636128767 GERD without esophagitis (K21.9) Active confirmed Problem 778035246 Fatty liver (K76.0) Active confirmed Problem Uncomplicated mild persistent asthma (197453124) Mild persistent asthma without complication (J45.30) Active confirmed doing well aske d to establish care with primary care provider in [place] Problem 296194466 Shellfish allergy (Z91.013) Active confirmed needs testing and send epi pen Problem 305566763 Gastritis and duodenitis (K29.90) Active confirmed Problem 572084401 Bilateral carotid artery stenosis (I65.23) Active confirmed Problem 399466925 Multiple allergies (Z88.9) Active confirmed Wishes to go to allergy and immunology she has no why sometimes when she goes to someone house and is cooked seafood she still feels like she is having a reaction Problem 57051323 Oropharyngeal dysphagia (R13.12) Active confirmed get barium swallow and cosider gastric emptying Problem 31703849 Degenerative disc disease at L5-S1 level (M51.36) Active confirmed Concern for advancement and disc disease get MRI Problem 156167296 Herniation of left side of L4-L5 intervertebral disc (M51.26) Active confirmed Problem 838937424 Coronary artery disease involving [place] coronary artery of [place] heart without angina pectoris (I25.10) Active confirmed Will need to ge t records from previous providers patient is out of range for her glucoses and blood pressure Problem 70078348 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 Problem 09047271598797313 Left renal artery stenosis (I70.1) Active confirmed Problem 60850010351597 Pharyngeal dysphagia (R13.13) Active confirmed Problem 24866206 Hypothyroidism, unspecified type (E03.9) Active confirmed get labs in 2 weeks and f/u for level 2 will follow-up in clinic in 2 days she is to start chlorthalidone which is much more effective medication of hydrochlorothiaz ehsan will get basic metabolic panel within comprehensive panel done in 2 weeks If there is any signs of acute cardiac issue shortness of breath sweating new chest pain she is to call 911 go to the hospital Problem 01499149 Hyperlipidemia, unspecified hyperlipidemia type (E78.5) Active confirmed get labs 2 week s Problem 520638667 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 (E11.3493) Active confirmed Problem 83186672 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) Active confirmed Follow-up 1 alessio campo bring blood sugar logs went over patient her regimen and will try to get patient in with endocrinology as this was not accomplished after last effort now with her more focused on her health will have more visits and will be able to follow-up with recommendations for endocrine and sending her to get into a clinic where she can be taught how to use continuous monitoring Problem 877601103 Acute on chronic congestive heart failure, unspecified heart failure type (I50.9) Active confirmed Problem 072049093739150 Resistant hypertension (I1A.0) Active confirmed Vital Signs Temperature 97.7 degrees Fahrenheit 10/31/2024 Respiratory Rate 18 /min 10/31/2024 Oximetry 99 % 10/31/2024 Blood pressure diastolic 117 mm Hg 10/31/2024 Height 62.25 in 10/31/2024 Blood pressure systolic 173 mm Hg 10/31/2024 Weight 282 lbs 10/31/2024 BMI 51.16 kg/m2 10/31/2024 Encounters Encounter Location Date Provider Diagnosis [address] [address] 05/08/2024 Simone Tamayo [address] [address] 10/13/2024 Laura Kearney [address] [address] 10/13/2024 Laura Kearney [address] [address] 2024 Laurahannah Browncaioli [address] [address] 11/22/2024 Laura Roncaioli [address] [address] 01/04/2025 Laura Kearney [address] [address] 03/16/2025 Simone Tamayo [address] [address] 03/24/2024 Laura Browncaioli Resistant hypertensi on I1A.0 ; Left renal artery stenosis I70.1 ; Type 2 diabetes mellitus with cardiac complication E11.59 ; Hyperlipidemia, unspecified hyperlipidemia type E78.5 and Hypothyroidism, unspecified type E03.[address] [address] 07/13/2024 Laura Españaioli Ptosis, right H02.40 1 ; Monocular diplopia of right eye H53.2 and Bilateral carotid artery stenosis I65.[address] [address] 09/06/2024 Simone Tamayo Hypertension I10 ; Acute sinusitis J01.90 and Body mass index (BMI) 45.0-49.9, adult Z68.[address] [address] 10/12/2024 Laura Roncaioli Pharyngeal dysphagia R13.[address] [address] 10/19/2024 Laura Roncaioli Pharyngeal dysphagia R13.13 [facility] of [address] [address] 05/11/2024 Laura Roncaioli Type 2 diabetes mellitus with cardiac complication E11.59 ; Resistant hypertension I1A.0 and Left renal artery stenosis I70.[address] [address] 10/31/2024 Laura Kearney Shortness of breath R06.02 ; Lower extremity edema R60.0 ; Pharyngeal dysphagia R13.13 ; Encounter for behavioral health screening Z13.30 ; Encounter for examination of blood pressure with abnormal findings Z01.31 and Body mass index (BMI) 50-59.9, adult Z68.43 Assessments Encounter Date Diagnosis (ICD Code) Assessment Notes Treatment Notes Treatment Clinical Notes Section Notes 03/24/2024 Left renal artery stenosis (ICD-10 - I70.1) 03/24/2024 Resistant hypertension (ICD-10 - I1A.0) BP elevated Continue to follow up with technician test systems 05/11/2024 Type 2 diabetes mellitus with cardiac complication (ICD-10 - E11.59) Labs reviewed and questions addressed A1c 7.2 - patient reporting some lows in the 60s from her CGM Will continue with the same treatment of trulicity - no increase in dose Diet and exercise counseled 05/11/2024 Resistant hypertension (ICD-10 - I1A.0) Manual BP 160/92 Resistent HTN secondary to left renal artery stenosis Infection Control Practitioner treating HTN Continue with current medications and specialist f/u 07/13/2024 Ptosis, right (ICD-10 - H02.401) Currently being evaluated by ophthalmology Was wearing right eye patch but they told her she could remove it last week She can focus on one thing or person but only if they are staying still, she cannot shift focus easily Improving from a few weeks ago per patient 07/13/2024 Monocular diplopia of right eye (ICD-10 - H53.2) 09/06/2024 Hypertension (ICD-10 - I10) 09/06/2024 Acute sinusitis (ICD-10 - J01.90) 10/12/2024 Pharyngeal dysphagia (ICD-10 - R13.13) ENT econsult placed for recommendations moving forward with evaluation and treatment Counseled patient that I will call her early next week with the consult notes and what our next steps will be 10/19/2024 Pharyngeal dysphagia (ICD-10 - R13.13) ENT econsult recommendations --> CT neck with IV contrast - do not settle for CT without contrast or MRI, concerned for occult disease that would not be obvious on laryngoscopy or nasal endoscopy Relayed message to patient and orders placed Need UTD kidney function tests prior to contrast Coding: Use UPDATED E&M code. Also applies when carrying over a previous visit. 10/31/2024 Shortness of breath (ICD-10 - R06.02) Lungs clears to auscultation bilaterally O2 sat 99% with RR 18 BP extremely elevated - not unusual for patient, closely followed by nephrology and cardiology for renal artery stenosis and CHF Senior Controller appointment tomorrow Counseled patient that if symptoms change or worsen she needs to go to the ER Coding: Use UPDATED E&M code. Also applies when carrying over a previous visit. 10/31/2024 Lower extremity edema (ICD-10 - R60.0) Counseled patient to take extra lasix and chlorthaidone dose this afternoon Follow up with lmft tomorrow Coding: Use UPDATED E&M code. Also applies when carrying over a previous visit. 10/31/2024 Pharyngeal dysphagia (ICD-10 - R13.13) Most recent eGFR 43 - nephrology contacted and reviewing labs to approve IV contrast for CT of neck CT scheduled for 11/16/2024 If symptoms worsen or change advised patient to go to hospital immediately Coding: Use UPDATED E&M code. Also applies when carrying over a previous visit. 09/06/2024 Body mass index (BMI) 45.0-49.9, adult (ICD-10 - Z68.42) 07/13/2024 Bilateral carotid artery stenosis (ICD-10 - I65.23) All medications are the same with exception of added Brilinta and Jardiance Patient only taking Brilinta 90 mg nightly - lmft aware Patient reports lmft is aware of her BP - high while admitted as well Disability form completed Follow up with cardiology first week of July Counseled and stressed to patient that she should have a low threshold for returning to the ER - any new or worsening symptoms 05/11/2024 Left renal artery stenosis (ICD-10 - I70.1) 03/24/2024 Type 2 diabetes mellitus with cardiac complication (ICD-10 - E11.59) Last a1c 14 Concerned that symptoms are a result of uncontrolled type 2 diabetes or uncontrolled thyroid Labs ordered - will contact patient with results Diet and exercise counseled 03/24/2024 Hyperlipidemia, unspecified hyperlipidemia type (ICD-10 - E78.5) 10/31/2024 Encounter for behavioral health screening (ICD-10 - Z13.30) Coding: Use UPDATED E&M code. Also applies when carrying over a previous visit. 10/31/2024 Encounter for examination of blood pressure with abnormal findings (ICD-10 - Z01.31) Coding: Use UPDATED E&M code. Also applies when carrying over a previous visit. 03/24/2024 Hypothyroidism, unspecified type (ICD-10 - E03.9) 10/31/2024 Body mass index (BMI) 50-59.9, adult (ICD-10 - Z68.43) Coding: Use UPDATED E&M code. Also applies when carrying over a previous visit. Plan Of Treatment Pending Test Test Name Order Date Echocardiogram 08/17/2022 Mammogram: Bilateral Screening 4 Basic Metabolic Panel w/eGFR 54052 05/23 Allergy Respiratory Profile Region I 106 43 05/05/2018 CBC (H/H,RBC,Indices,WBC,Plt) 1759 05/23 Ova and Parasites,3 Specimens 6652 09/10 Ova and Parasites,3 Specimens 6652 07/16 CBC (Includes Diff/Plt) 6399 02/04/2022 TSH w/Free T4 rfx 93181 05/23/2017 Hemoglobin A1c 496 11/25/2017 C.difficile Toxin A [place] B 38578 09/11/19 20 Microalbumin,[facility] (w/creat) 6517 08/20 Microalbumin,[facility] (w/creat) 6517 08/2016 Lipid Panel, Standard 7600 05/23/2017 Lipid Panel, Standard 7600 09/08/2017 Cortisol (AM) 4212 08/17/2022 Giardia Ag (3 Specimens) 7845 07/16/2021 PAP OUTSIDE 08/17/2022 ALLERGY PANEL 19, [employer] [id number] ALLERGY PANEL 19, [employer] [id number] Insurance Providers Payer Name Payer Address Payer Phone Subscriber Number Group Number Insured Name Patient Relationship to Insured Coverage Start Date Coverage End Date Medicaid Leonor Balderas [place] [address] [phone] [id number] Janice Davenport Self - patient is the insured Medical (General) History Medical History History ICD Code STEMI 08/10/2019 stent placed in PCI 05/10/2021 SPECT medium size moderate to severe fixed perfusion defect in basal to apical inferior wall with associated hypokinesis most severe in the mid inferior wall no reversible defects LV function at rest 61% with stress 47% diabetes type 2 uncontrolled asthma lumbar disc disease radiculopathy l5-s1 progress jayshree on mri ,pmr injection 05/13/16, 08/16/15 some relief sent for sx referral hyperlipidemia hypothyriod morbid obesity chronic la iga deficiency 02/03/19 missed d and c shellfish allergy 05/09/2021 echocardiogram mo derate concentric left ventricular hypertrophy EF 45 to 50% grade 2 moderate diastolic dysfunction 07/2021 mammogram BI-RADS 2; ultrasound BI-RADS 1. Patient referred to breast specialist 09/08/21 breast specialist: s upportive bra, eczema; follow up in 2-3mo; repeat mammogram in 07/2022 Surgical History Surgery Date(Month/Year) cyts under breast x 2 inclusion cyst 201 4 tonsils 16 yo egd nl 2010 missed d and c 02/03/19 Hospitalization History Reason Date(Month/Year) multiple
--- OUTSIDE RECORDS SUMMARY | 2025-03-23 10:19 | XMS_ITS | Encounter Summary ---
Author Organization [facility] Address [address] [place] [address] Care Team Providers Care Service Advocate Contact Name Role Phone Pcp, No MD Primary Care Provider Unavailabl e Encounter Details Date Type Department Care Team (Late st Contact Info) Description 11/08/2024 Orders Only [facility] [address] [place] [address] Stacey Martin, LUMBER INSPECTOR [address] [place] [address] Social History Tobacco Use Types Packs/Day Years [...] suspected to have Coronavirus/COVID-19? No / Unsure 11/08/2024 10:10 AM EDT documented as of this encounter Plan of Treatment Upcoming Encounters Date Type Department Care Team (Late st Contact Info) Description 05/02/2025 11:00 AM EST Office Visit [facility] [address] [place] [id number] Randall Aguiar MD [address] [facility] [place] [address] 05/03/2025 12:00 PM EST Office Visit [facility] Department of Nephrology [address] [place] [address] Cassidy Melendez MD [address] [place] [address] [place] [address] 06/06/2025 10:00 AM EST Nurse Only [facility] Department of Cardiology [address] [place] [address] documented as of this encounter Visit Diagnoses Not on filedocumented in this encounter Care Teams Service Advocate Contact Relationship Specialty Start Date End Date Pcp, MD Niki [address] [place] [address] PCP - General Internal Medicine 01/18/23 documented as of this encounter
--- OUTSIDE RECORDS SUMMARY | 2025-03-23 10:19 | XMS_ITS | Encounter Summary ---
Author Organization [facility] Address [address] [place] [address] Care Team Providers Care Live Out Nanny Name Role Phone Nikki Mancilla DO Primary Care Provider [phone] Encounter Details Date Type Department Care Team (Late Contact Info) Description 10/27/2021 Telephone [facility] [address] [facility] [place] [address] Pcp, No Social History Tobacco Use Types Packs/Day Years [...] Upcoming Encounters Date Type Department Care Team ([facility] Contact Info) Description 06/05/2025 1:00 PM EST Office Visit [facility], [address] [phone] Kb Guerrero MD [address] [place] [address] documented as of this encounter Visit Diagnoses Not on filedocumented in this encounter Care Teams Live Out Nanny Relationship Specialty Start Date End Date Nikki Mancilla DO PCP - General Internal Medicine 09/23/21 documented as of this encounter
--- OUTSIDE RECORDS SUMMARY | 2025-03-23 10:20 | XMS_ITS | Clinical Summary ---
Author Organization [facility] Address [address] [place] [address] Care Team Providers Care Oracle Analyst Name Role Phone Nikki Mancilla DO Primary Care Provider [phone] Allergies Active Allergy Reactions Criticality Noted Date Comments Shellfish Shortness Of Breath High 09/08/2017 Medications Medication Sig Dispensed Refills Start Date End Date Status PROAIR HFA 108 (90 BASE) MCG/ACT inhaler Inhale 2 puffs into the lungs every 4 (four) hours as needed. 0 10/27/2016 Active atenolol (TENORMIN) tablet 100 mg Take 100 mg by mouth every night at bedtime. 0 Active insulin lispro (HumaLOG) injection 100 units/mL Inject under the skin 3 (three) times a day before meals. 0 Active insulin glargine (LANTUS) injection 100 units/mL Inject 90 Units under the skin every night at bedtime. 0 Active levothyroxine (SYNTHROID, LEVOXYL) tablet 50 mcg Take 50 mcg by mouth every morning on an empty stomach. 0 Active chlorthalidone (HYGROTON) 50 MG tablet Take 50 mg by mouth daily. 0 Active aspirin EC 81 MG tablet Take 81 mg by mouth daily. 0 Active clopidogrel (PLAVIX) 75 MG tablet Take 75 mg by mouth daily. 0 Active amLODIPine (NORVASC) tablet 10 mg amlodipine 10 mg tablet TAKE 1 TABLET BY MOUTH EVERY DAY 0 05/09/2021 Active ibuprofen 600 MG tablet Take 1 tablet (600 mg total) by mouth every 6 (six) hours as needed for pain. 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 11/18/2017 Family History Medical History Relation Name Comments Breast cancer Maternal Aunt Breast cancer Paternal Aunt a t 55 Breast cancer Paternal Grandmother Relation Name Status Comments Maternal Aunt Paternal Aunt Paternal Grandmother Social History Tobacco Use Types Packs/Day Years Used Date Smoking Tobacco: Never Smokeless Tobacco: Never Alcohol Use Standard Drinks/Week Comments Yes 0 (1 standard drink = 0.6 oz pur e alcohol) occasional; non while Sex and Gender Information Value Date Recorded Sex Assigned at Female 01/19/2019 11:45 AM EDT Gender Identity Female 01/30/2022 7:33 AM EDT Sexual Orientation Choose not to disclose 2021 7:33 AM EDT Job Start Date Occupation Industry Not on file Not on file Not on file Last Filed Vital Signs Vital Sign Reading Time Taken Comments Blood Pressure 182/95 01/30/2022 11:08 AM EDT Pulse 73 01/30/2022 11:08 AM EDT Temperature 36.9 C (98.4 F) 01/30/2022 10:30 AM EDT Respiratory Rate 18 01/30/2022 11:08 AM EDT Oxygen Saturation 100% 01/30/2022 11:08 AM EDT Inhaled Oxygen Concentration - - Weight 116.1 kg (256 lb) 01/28/2022 11:14 AM EDT Height 162.6 cm (5' 4 ) 01/28/2022 11:14 AM EDT Body Mass Index 43.94 01/28/2022 11:14 AM EDT Plan of Treatment Health Maintenance Due Date Last Done Comments Hepatitis C Screening 1980 Depression Screening 1992 BMI Counseling 1998 Preventative Health Evaluation 1998 Cervical Cancer Screening (Pap Smear) 2001 Hepatitis B Vaccines (2 of 3 - 19+ 3-dose series) 12/23/2005 11/25/2005 Pneumococcal Vaccine (2 of 2 - PCV) 05/05/2017 05/05/2016, 08/24/2013 DTap / Tdap / Td (2 - Td or Tdap) 03/08/2023 03/08/2013 COVID-19 Vaccine ( - season) 2025 11/10/2021, 03/27/2021, 03/06/2021 Influenza Vaccine (#1) 2025 , 05/08/2021, 03/08/2013, Additional history exists RSV Ped < 20 months Aged Out No longe r eligible based on patient's age to complete this topic Advance Directives For more information, please contact: [phone] Latest Code Status on File Code Status Date Activated Date Inactivated Comments Full Code 12/02/2021 9:18 AM 12/02/2021 4:03 PM This code status was ascertained in the following way: discussion with patient. Code Status History Code Status Date Activated Date Inactivated Comments Full Code 12/03/2016 10:39 PM 12/05/2016 9:42 PM This code status was ascertained in the following way: discussion with patient . Full Code 12/03/2016 7:36 PM 12/03/2016 10:39 PM This code status was ascertained in the following way: discussion with patient . Care Teams Oracle Analyst Relationship Specialty Start Date End Date Nikki Mancilla DO [address] [place] [address] PCP - General Internal Medicine 11/17/17
--- OUTSIDE RECORDS SUMMARY | 2025-03-23 10:20 | XMS_ITS | Encounter Summary ---
Author Organization [facility] Address [address] [place] [address] Care Team Providers Care Finance Executive Name Role Phone CharoNikki Primary Care Provider [phone] Encounter Details Date Type Department Care Team (Late st Contact Info) Description 08/13/2022 Scanned Document [facility] [address] [facility] [address] [place] [id number] Amanda Hu PA [address] [facility] [address] [place] [address] Social History Tobacco Use Types Packs/Day Years [...] PM EST Office Visit [facility], [address] [phone] Kb Guerrero MD [address] [place] [address] documented as of this encounter Visit Diagnoses Not on filedocumented in this encounter Care Teams Finance Executive Relationship Specialty Start Date End Date Nikki Mancilla DO PCP - General Internal Medicine 09/23/21 documented as of this encounter
--- OUTSIDE RECORDS SUMMARY | 2025-03-23 10:20 | XMS_ITS | Clinical Summary ---
Author Organization [facility] Address [address] [place] [address] Phone Care Team Providers Care Sap Bpc Developer Name Role Phone Rhonda Liao MD Primary Care Provider [phone] Allergies Active Allergy Reactions Criticality Noted Date Comments Shellfish Containing Products Unknown,Shortness of breath High 09/08/2017 Medications Ventolin HFA 90 mcg/actuation inhaler Inhale 2 puffs by mouth every 6 hours as needed. 04/27/2016 Active amLODIPine (NORVASC) 10 mg tablet Take 1 tablet (10 mg total) by mouth daily. 05/09/2021 Active atorvastatin (LIPITOR) 80 mg tablet Take 1 tablet (80 mg total) by mouth daily. 11/27/2023 Active chlorthalidone (HYGROTON) 50 mg tablet Take 1 tablet (50 mg total) by mouth daily. 10/11/2021 Active dulaglutide (TRULICITY) 0.75 mg/0.5 mL pen injector injection Inject 0.5 mL (0.75 mg total) under the skin. 07/13/2023 Active Jardiance 10 mg tablet Take 1 tablet (10 mg total) by mouth daily. 05/31/2024 Active ezetimibe (ZETIA) 10 mg tablet Take 1 tablet (10 mg total) by mouth daily. 10/11/2021 Active Lasix 20 mg tablet Take 1 tablet (20 mg total) by mouth daily. Active gabapentin (NEURONTIN) 300 mg capsule Take 1 capsule (300 mg total) by mouth. 11/11/2023 Active losartan (COZAAR) 100 mg tablet Take 1 tablet (100 mg total) by mouth daily. 04/27/2024 Active metoprolol succinate (TOPROL-XL) 100 mg 24 hr tablet Take 1 tablet (100 mg total) by mouth daily. 01/17/2023 Active spironolactone (ALDACTONE) 50 mg tablet Take 1 tablet (50 mg total) by mouth daily. 09/22/2023 Active aspirin 81 mg EC tablet Take 1 tablet (81 mg total) by mouth 1 (one) time each day. 30 each 11 06/20/2024 1:37 PM EST 06/20/2024 Active hydrALAZINE (APRESOLINE) 50 mg tablet Take 1 tablet (50 mg total) by mouth 2 (two) times a day. 60 each 11 06/20/2024 1:37 PM EST 06/20/2024 Active ticagrelor (BRILINTA) 90 mg tablet Take 1 tablet (90 mg total) by mouth 2 (two) times a day. 60 tablet 06/20/2024 1:37 PM EST 06/20/2024 Active Active Problems Problem Noted Date Diagnosed Date Diplopia 06/16/2024 Encounters Date Type Department Care Team Description 03/07/2025 Telephone Neurostroke - [facility] [address] [place] [address] Sydnie Castillo MA from Last 3 Months Immunizations Immunization Administration Dates Next Due Pfizer SARS-CoV-2 COVID-19, mRNA, LNP-S, preservative free 03/27/2021,03/06/2021 Surgical History Surgery Date Site/Laterality Comments TONSILLECTOMY PROCEDURE:TONSILLECTOMY CYST REMOVAL PROCEDURE:CYST REMOVAL APPENDECTOMY 12/03/2016 N/A PROCEDURE:APPENDECTOMY;COMMEN T:Procedure: APPENDECTOMY; Surgeon: Balta Reyes MD; Location: [facility]; Service: General; Laterality: N/A; DILATION AND CURETTAGE OF UTERUS 02/03/2019 N/A PROCEDURE:DILATION AND CURETTAGE OF UTERUS;COMMENT:Procedure: D&C WITH SUCTION; Surgeon: Minal Bianchi DO; Location: [facility]; Service: Gynecology; Laterality: N/A; BREAST CYST EXCISION Bilateral PROCEDURE:BREAST CYST EXCISION COLONOSCOPY PROCEDURE:COLONOSCOPY UPPER GASTROINTESTINAL ENDOSCOPY PROCEDURE:UPPER GASTROINTESTINAL ENDOSCOPY COLONOSCOPY 12/02/2021 N/A PROCEDURE:COLONOSCOPY;COMMENT :Procedure: COLONOSCOPY; Surgeon: Adi Serrano MD; Location: [facility]; Service: Gastroenterology; Laterality: N/A; UPPER GASTROINTESTINAL ENDOSCOPY 12/02/2021 N/A PROCEDURE:UPPER GASTROINTESTINAL ENDOSCOPY;COMMENT:Procedure: UPPER ENDOSCOPY-EGD; Surgeon: Adi Serrano MD; Location: [facility]; Service: Gastroenterology; Laterality: N/A; DILATION AND CURETTAGE OF UTERUS 01/30/2022 N/A PROCEDURE:DILATION AND CURETTAGE OF UTERUS;COMMENT:Procedure: SUCTION D&C; Surgeon: Minal Bianchi DO; Location: [facility]; Service: Gynecology; Laterality: N/A; Medical History Medical History Date Comments Asthma DX:Asthma COPD (chronic obstructive pu lmonary disease) ([facility] V24, [facility] V28) DX:COPD (chronic o bstructive pulmonary disease) ([facility]) Diabetes mellitus ([facility] V 24, [facility] V28) DX:Diabetes mellitus (HCC) Hypertension DX:Hypertension Disease of thyroid gland DX:Dise ase of thyroid gland Hyperchloremia DX:Hyperchloremi a GERD (gastroesophageal reflux disease) DX:GERD (gastroesophageal reflux disease) Herniated lumbar intervertebral disc DX:Herniated lumbar intervertebral disc Back pain DX:Back pain Diverticulitis DX:Diverticuliti s Enlarged liver DX:Enlarged live r Diabetes mellitus, type II ( [facility] V24, [facility] V28) DX:Diabetes mellitus, type I I ([facility]) Hypothyroidism DX:Hypothyroidis m Covid 05/2020 DX:COVID Myocardial infarction ([facility]/ CC V24, [facility] V28) DX:Myocardial infarction (HCC);COMMENT:07/2019 Hyperlipidemia DX:Hyperlipidemi a Irritable bowel DX:Irritable bow el Family History Medical History Relation Name Comments Breast cancer Father's Sister at 55 Breast cancer Mother's Sister Breast cancer Paternal Grandmother Relation Name Status Comments Father's Sister Mother's Sister Paternal Grandmother Social History Tobacco Use Types Packs/Day Years Used Date Smoking Tobacco: Never Smokeless Tobacco: Never Alcohol Use Standard Drinks/Week Comments Yes 0 (1 standard drink = 0.6 oz pur e alcohol) Interpersonal Safety Answer Date Record ed Physical Abuse Unrecognized value 06/16/2024 Verbal Abuse Unrecognized value 06/16/2024 Comments Unknown Sex and Gender Information Value Date Recorded Sex Assigned at Not on file Legal Sex Female 4:00 PM EST Gender Identity Not on file Sexual Orientation Not on file Obstetrics History Last Filed Vital Signs Vital Sign Reading Time Taken Comments Blood Pressure 172/92 10/03/2024 1:04 PM EDT Pulse 67 10/03/2024 1:04 PM EDT Temperature 36.9 C (98.4 F) 06/20/2024 3:35 PM EST Respiratory Rate 17 06/20/2024 3:35 PM EST Oxygen Saturation 99% 10/03/2024 1:04 PM EDT Inhaled Oxygen Concentration - - Weight 119 kg (262 lb) 06/19/2024 1:51 PM EST Height 163 cm (5' 4.17 ) 06/19/2024 1:51 PM EST Body Mass Index 44.73 06/19/2024 1:51 PM EST Plan of Treatment Upcoming Encounters Date Type Department Care Team (Late st Contact Info) Description 05/03/2025 11:00 AM EST Office Visit Neurostroke [facility] [address] [place] [phone] Adeel Crow MD [address] [place] [address] [place] [phone] 09/17/2025 3:30 PM EDT Office Visit Internal Medicine - [facility] [address] [place], [place] [phone] Rhonda Liao MD [address] [place], [place] Health Maintenance Due Date Last Done Comments Diabetes: Annual Foot Exam 1990 Diabetes: Annual Retina Eye Exam 1990 Hepatitis A Vaccines (1 of 2 - Risk 2-dose series) 10/27/1999 Hepatitis B Vaccines (2 of 3 - 19+ 3-dose series) 12/23/2005 11/25/2005 HPV Vaccines (2 - 3-dose series) 08/25/2007 07/28/2007 Pneumococcal Vaccine: Pediatrics (0 to 5 Years) and At-Risk Patients (6 to 49 Years) (2 of 2 - PCV) 05/05/2017 05/05/2016, 08/24/2013 HIV Screening 05/20/2022 Hepatitis C Screening 05/20/2022 Social Influencers of Health Screening 05/20/2022 DTaP,Tdap,and Td Vaccines (4 - Td or Tdap) 03/08/2023 03/08/2013, 05/07/2008, 09/19/2005 Depression Screening 06/21/2024 Diabetes: Blood Sugar Control Test (HGBA1C) 12/15/2024 06/16/2024 COVID-19 Vaccine ( season) 2025 11/10/2021, 03/27/2021, 03/06/2021 Influenza Vaccine (#1) 2025 , 05/08/2021, 03/08/2013, Additional history exists Diabetes: Annual Urine Albumin-Creatinine Ratio (uACR) 04/27/2025 04/27/2024, 04/27/2024, 01/19/2024, Additional history exists Diabetes: Annual GFR (Glomerular Filtration Rate) 06/20/2025 06/20/2024, 06/18/2024, 06/17/2024, Additional history exists Hypertension/CHF/CAD Annual BMP Blood Test 06/20/2025 06/20/2024, 06/18/2024, 06/17/2024, Additional history exists Breast Cancer Screening 09/26/2025 09/27/19 24, 09/24/2022, 08/12/2021, Additional history exists Cervical Cancer Screening: HPV 10/17/2028 10/18/2023 Cholesterol Screening (Lipid Panel) 06/16/2029 06/16/2024 RSV Immunization Adult Patients (1 - 1-dose 75+ series) 10/27/2055 HIB Vaccines Aged Out No longer eligi ble based on patient's age to complete this topic IPV Vaccines Aged Out No longer eligi ble based on patient's age to complete this topic MMR Vaccines Aged Out No longer eligi ble based on patient's age to complete this topic Meningococcal ACWY Vaccine Aged Out N o longer eligible based on patient's age to complete this topic Meningococcal B Vaccine Aged Out No l onger eligible based on patient's age to complete this topic RSV Immunization Patients Under 20 months Aged Out No longer eligible based on patient's age to complete this topic Varicella Vaccines Aged Out No longer eligible based on patient's age to complete this topic Procedures Procedure Name Priority Date/Time Associated Diagnosis Comments BASIC METABOLIC PANEL Routine 06/20/2024 10:28 AM EST HEMOGLOBIN A1C Routine 06/16/2024 7:00 PM EST LIPID PANEL Routine 06/16/2024 7:00 PM EST HM URINE ALBUMIN CREATININE RATIO Routine 12/06/2023 HM HPV Routine 10/18/2023 MAMMOGRAM SCREENING BILATERAL 3D SYLVESTER WITH CAD Routine 09/27/2023 10:00 AM EDT Encounter for screening mammogram for malignant neoplasm of breast from Last 3 Months or Most Recently Relevant to Health Maintenance Results * (ABNORMAL) Basic metabolic panel (06/20/2024 10:28 AM EST) Sodium 135 135 - 145 mmol/L LAB CHEMISTRY METHOD 06/20/2024 11:17 AM EST [facility] Potassium 4.5 3.5 - 5.1 mmol/L LAB CHEMISTRY METHOD 06/20/2024 11:17 AM EST [facility] Chloride 103 98 - 107 mmol/L LAB CHEMISTRY METHOD 06/20/2024 11:17 AM EST [facility] CO2 26 24 - 32 mmol/L LAB CHEMISTRY METHOD 06/20/2024 11:17 AM EST [facility] Anion Gap 6 5 - 14 LAB CHEMISTRY METHOD 06/20/2024 11:17 AM [facility] Glucose 220(H) 70 - 199 mg/dL LAB CHEMISTRY METHOD 06/20/2024 11:17 AM [facility] BUN 38(H) 7 - 17 mg/dL LAB CHEMISTRY METHOD 06/20/2024 11:17 AM [facility] Creatinine 1.60(H) 0.50 - 1.00 mg/dL LAB CHEMISTRY METHOD 06/20/2024 11:17 AM [facility] eGFR 41(L) >=60 mL/min/1. 73m2 LAB CHEMISTRY METHOD 06/20/2024 11:17 AM [facility] Comment:Calculation based on the Chronic Kidney Disease Epidemiology Collaboration (CKD-EPI) equation refit without adjustment for race. BUN/Creatinine Ratio 23.8(H) 12.0 - 20.0 LAB CHEMISTRY METHOD 06/20/2024 11:17 AM [facility] Calcium 8.4 8.4 - 10.2 mg/dL LAB CHEMISTRY METHOD 06/20/2024 11:17 AM [facility] Blood Venous blood specimen / Unknown Venipuncture / Unknown 06/20/2024 10:28 AM EST 06/20/2024 10:46 AM EST Adi Cabezas DO LAB BLOOD ORDERABLES Final Res ult [facility] [address] [place] [address], * (ABNORMAL) Hemoglobin A1c (06/16/2024 7:00 PM EST) Hemoglobin A1C 7.2(H) <5.7 % LAB CHEMISTRY METHOD 06/17/2024 9:57 AM EST [facility] Mean Bld Glu Estim. 160 mg/dL LAB CHEMISTRY METHOD 06/17/2024 9:57 AM EST [facility] Blood Venous blood specimen / Unknown Venipuncture / Unknown 06/16/2024 7:00 PM EST 06/16/2024 7:32 PM EST Narrative [facility] - 06/17/2024 9:57 AM EST ADA Guidelines: Increased risk Diabetes Mellitus A1C 5.7 - 6.4% and Fasting Blood Glucose 100 - 125 mg/dl Diabetes Mellitus: A1C >6.5% and Fasting Blood Glucose >125 mg/dl David Valentino MD LAB BLOOD ORDERABLES Scarlet l Result [facility] [address] [place] [address], [place] [phone] * (ABNORMAL) Lipid panel (06/16/2024 7:00 PM EST) [facility] Signature Cholesterol 300(H) 0 - 200 mg/dL LAB CHEMISTRY METHOD 06/16/2024 8:09 PM EST [facility] Triglycerides 191(H) <150 mg/dL LAB CHEMISTRY METHOD 06/16/2024 8:09 PM EST [facility] HDL 41 35 - 88 mg/dL LAB CHEMISTRY METHOD 06/16/2024 8:09 PM EST [facility] LDL Calculated 221(H) 50 - 130 mg/dL LAB CHEMISTRY METHOD 06/16/2024 8:09 PM EST [facility] VLDL Cholesterol Victoriano 38.2 mg/dL LAB CHEMISTRY METHOD 06/16/2024 8:09 PM EST [facility] Comment:No established refer ence range. Blood Venous blood specimen / Unknown Venipuncture / Unknown 06/16/2024 7:00 PM EST 06/16/2024 7:32 PM EST David Valentino MD LAB BLOOD ORDERABLES Scarlet l Result [facility] [address] [place] [address], [place] [phone] * Urine Albumin Creatinine Ratio (12/06/2023) Urine Albumin Creatinine Ratio abstracted Historical Provider HEALTH MAINTENANCE Final Result * Cervical Cancer Screening: HPV (10/18/2023) Cervical Cancer Screening: HPV negative, abstracted Historical Provider [facility] Final Result * MAMMOGRAM SCREENING BILATERAL 3D SYLVESTER WITH CAD (09/27/2023 10:00 AM EDT) Anatomical Region Laterality Modality Mammography 09/01/2023 2:57 PM EDT Narrative 09/27/2023 1:55 PM EDT This is a summary report. The complete report is available in the patient's medical record. If you cannot access the medical record, please contact the sending organization for a detailed fax or copy. Mammogram Screening Bilateral 3D Sylvester with CAD EXAM HISTORY: Visit for screening mammogram COMPARISON: 09/24/2022 TECHNIQUE: Bilateral full field digital mammography with synthesized (2D) and Tomosynthesis (3-D) was performed using standard CC and MLO projections. Mammogram was interpreted in correlation with CAD and Tomosynthesis. FINDINGS: The parenchymal pattern appears stable with scattered typically benign-appearing calcifications and asymmetries. There are no suspicious appearing masses, clusters of microcalcifications, skin thickening or areas of architectural distortion seen. No axillary adenopathy is seen. BREAST DENSITY: Scattered fibroglandular densities within the breast parenchyma. (25%-50% fibroglandular tissue). Density B. IMPRESSION: 1. Stable mammographic findings with no evidence of malignancy. 2. Patient should continue with yearly screening mammography. NOTE: The results of this examination have been communicated to the patient through a lay letter in accordance with the Mammography Quality Standards Act. BI-RAD 2- BENIGN FINDINGS 3342F Report reviewed and signed by : Dr. Frederick Tolliver MD on 09/27/2023 1:55 PM. Workstation Name - [id number] Procedure Note Frederick Tolliver MD - 02/07/2024 This is a summary report. The complete report is available in thepatient's medical record. If you cannot access the medical record, pleasecontact the sending organization for a detailed fax or copy. Mammogram Screening Bilateral 3D Sylvester with CAD EXAM HISTORY: Visit for screening mammogram COMPARISON: 09/24/2022 TECHNIQUE: Bilateral full field digital mammography with synthesized (2D)and Tomosynthesis (3-D) was performed using standard CC and MLOprojections. Mammogram was interpreted in correlation with CAD andTomosynthesis. FINDINGS: The parenchymal pattern appears stable with scattered typicallybenign-appearing calcifications and asymmetries. There are no suspicious appearing masses, clusters of microcalcifications,skin thickening or areas of architectural distortion seen. No axillary adenopathy is seen. BREAST DENSITY: Scattered fibroglandular densities within the breast parenchyma. (25%-50%fibroglandular tissue). Density B. IMPRESSION: 1. Stable mammographic findings with no evidence of malignancy. 2. Patient should continue with yearly screening mammography. NOTE: The results of this examination have been communicated to thepatient through a lay letter in accordance with the Mammography QualityStandards Act. BI-RAD 2- BENIGN FINDINGS 3342F Report reviewed and signed by : Dr. Frederick Tolliver MD on 09/27/2023 1:55 PM.Workstation Name - [id number] Simone Tamayo DO IM BI PROCEDURES Final Result from Last 3 Months or Most Recently Relevant to Health Maintenance Insurance [facility] [employer] Advance Directives * Full Code - Default (Latest Code Status on File) Date Activated Date Inactivated Comments 06/16/2024 5:33 PM 06/20/2024 7:42 PM This is or yecenia is used when code status has not been discussed with the patient, or code status is otherwise unknown/unconfirmed To update the patient's code status, place a code status order. Do not modify or discontinue any currently active code status orders. Care Teams Sap Bpc Developer Relationship Specialty Start Date End Date Rhonda Liao MD [address] [place] [phone] PCP - General Internal Medicine 11/14/24
--- OUTSIDE RECORDS SUMMARY | 2025-03-23 10:20 | XMS_ITS | Clinical Summary ---
Author Organization [facility] Address [address] [place] [id number] Care Team Providers Care Newspaper Editor Managing Name Role Phone Nikki Mancilla DO Primary Care Provider [phone] Allergies Active Allergy Reactions Criticality Noted Date Comments Shellfish Allergy Unknown/Patient and Family Unable to Define Medium 09/08/2017 Medications atenolol (TENORMIN) 100 MG tablet Take 100 mg by mouth. 04/27/20 16 Active atorvastatin (LIPITOR) 40 MG tablet Take 40 mg by mouth. 04/27/20 16 Active glucose blood test strip Apply 1 strip topically. 04/27/20 16 Active insulin glargine (LANtus/SEMGLEE SOLOSTAR) 100 units/mL prefilled pen injection Inject 75 Units under the skin. 04/27/20 16 Active insulin lispro (HumaLOG) 100 units/mL injection Inject under the skin. Active Insulin Pen Needle (PEN NEEDLES 31GX5/16 ) 31G X 8 MM Misc Use qid 03/22/20 15 Active B-D UF III MINI PEN NEEDLES 31G X 5 MM needle 02/10/20 18 Active levothyroxine (SYNTHROID, LEVOTHROID) 50 MCG tablet Take 50 mcg by mouth. 09/21/19 15 Active lisinopril (PRINIVIL,ZeSTRI L) 30 MG tablet Take 30 mg by mouth. Active montelukast (SINGULAIR) 10 MG tablet 02/09/20 18 Active aspirin enteric coated (ECOTRIN LOW STRENGTH) 81 MG EC tablet Take 81 mg by mouth daily. Active amLODIPine (NORVASC) 10 MG tablet every 24 hours. Acti ve chlorthalidone (HYGROTON) 50 MG tablet Take 50 mg by mouth daily. 10/12/19 Active Clopidogrel Bisulfate (PLAVIX PO) clopidogrel Active Continuous Blood Gluc Sensor (FreeStyle Patrick 2 Sensor) [facility] USE TO SCAN FOR BLOOD SUGAR AT LEAST 4 TIMES DAILY. 11/04/19 Active ezetimibe (ZeTIA) 10 MG tablet Take 10 mg by mouth daily. 10/12/19 Active losartan (COZAAR) 50 MG tablet 11/12/19 Active polyethylene glycol-electroly dillan (NuLYTELY, TRILYTE) 420 g solutionIndicati ons:Change in bowel habits Take as directed for Colonoscopy/GI Procedure. See administration instructions. 4000 mL 11/13/19 Active Ventolin HFA 108 (90 Base) MCG/ACT inhaler INHALE 1 PUFF EVERY 6 HOURS NEEDED FOR SHORTNESS FOR BREATH 30 90 03/18/20 Active rifAXIMin (XIFAXAN) 550 MG tabletIndication s:Abdominal bloating,Irritab le bowel syndrome with both constipation and diarrhea Take 1 tablet (550 mg total) by mouth 3 (three) times a day. 42 tablet 08/13/19 Active linaclotide (LINZESS) 72 mcg capsuleIndicatio ns:Irritable bowel syndrome with both constipation and diarrhea Take 1 capsule (72 mcg total) by mouth every morning before breakfast. 90 capsule 1 08/13/19 Active hydrALAZINE (APRESOLINE) 100 MG tablet Take 100 mg by mouth 2 (two) times a day with meals. Active metoPROLOL TARTRATE (LOPRESSOR) 100 MG tablet Take 100 mg by mouth daily. Active losartan (COZAAR) 100 MG tablet Take 100 mg by mouth daily. Active spironolactone (ALDACTONE) 50 MG tablet Take 50 mg by mouth daily. Active torsemide (DEMADEX) 10 MG tablet Take 10 mg by mouth daily. Active dulaglutide (TRULICITY) 0.75 MG/0.5ML prefilled pen injection Inject 0.75 mg under the skin once a week. Active Active Problems Problem Noted Date Diagnosed Date Irritable bowel syndrome wit h both constipation and diarrhea 08/13/2022 Assessment & Plan (08/13/2022 9:51 AM EST): Constipation and diarrhea - suspect IBS Recent EGD/Colon , celiac, HP, stool studies negative Lately more diarrhea - trial of xifaxan Uses linzess 72mcg as needed for constipation Consider fodmap diet, GF diet F/U in 8 weeks Hepatic steatosis 04/16/2022 Assessment & Plan (08/03/2022 9:21 AM EST): Low fat diet Weight loss, diet and exercise. Avoid hepatotoxic medications / supplements and ETOH. Discussed the role of obesity, hyperlipidemia and DM. Discussed the spectrum of disease from benign changes to cirrhosis. Follow clinically Ultrasound 2019 - fatty liver Assessment & Plan (04/16/2022 12:22 PM EDT): Low fat diet Weight loss, diet and exercise. Avoid hepatotoxic medications / supplements and ETOH. Discussed the role of obesity, hyperlipidemia and DM. Discussed the spectrum of disease from benign changes to cirrhosis. Follow clinically Ultrasound 2019 - fatty liver Change in bowel habits 11/12/2021 Assessment & Plan (08/13/2022 9:50 AM EST): More diarrhea, as per IBS Assessment & Plan (04/16/2022 12:17 PM EDT): Constipation and diarrhea - suspect IBS Recent EGD/Colon , celiac, HP, stool studies negative Start probiotics once daily Trial of linzess 72mcg daily, given samples Dysphagia 11/12/2021 Assessment & Plan (08/13/2022 9:49 AM EST): EGD unremarkable No current complaints Hold off on manometry for now Question of esophagram in the past Assessment & Plan (04/16/2022 12:18 PM EDT): EGD unremarkable Only currently happens with cheese Hold off on manometry for now Question of esophagram in the past Early satiety 11/12/2021 Assessment & Plan (08/13/2022 9:55 AM EST): Uncontrolled DM, early satiety/nausea but no vomiting No change with PPI Did not go for GES, if worsens or vomiting occurring then reorder GES Assessment & Plan (04/16/2022 12:19 PM EDT): Uncontrolled DM, early satiety/nausea/vomiting - ?gastroparesis Check GES Abdominal bloating 11/12/2021 Assessment & Plan (08/13/2022 9:56 AM EST): Probiotics once daily Trial xifaxan Assessment & Plan (04/16/2022 12:18 PM EDT): Probiotics once daily If no change and becomes more diarrhea, consider tx with SIBO Encounters Date Type Department Care Team Description 03/09/2025 Transcribe Orders [facility], [address] [id number] Gaurang Ji MD Combined form of age-related cataract, both eyes (Primary Dx) 12/31/2024 6:35 PM EDT Office Visit [facility] [address] [place] [address] Red Menchaca MD Crespo, Amelia, APRN Left upper quadrant abdominal pain (Primary Dx); Pain and numbness of left upper extremity; Hypertension, unspecified type 12/31/2024 Travel from Last 3 Months Family History Medical History Relation Name Comments Breast cancer Maternal Aunt Ovarian cancer Maternal Grandmother Breast cancer Paternal Aunt Relation Name Status Comments Maternal Aunt Maternal Grandmother Alive Paternal Aunt Social History Tobacco Use Types Packs/Day Years [...] Sign Reading Time Taken Comments Blood Pressure 176/121 12/31/2024 6:34 PM EDT Pulse 77 12/31/2024 6:34 PM EDT Temperature 37.1 C (98.8 F) 12/31/2024 6:34 PM EDT Respiratory Rate 20 12/31/2024 6:34 PM EDT Oxygen Saturation 100% 12/31/2024 6:34 PM EDT Inhaled Oxygen Concentration - - Weight 120 kg (264 lb) 08/13/2022 9:23 AM EST Height 162.6 cm (5' 4 ) 08/13/2022 9:23 AM EST Body Mass Index 45.32 08/13/2022 9:23 AM EST Plan of Treatment Upcoming Encounters Date Type Department Care Team (Late st Contact Info) Description 06/05/2025 1:00 PM EST Office Visit [facility], [address] [phone] Kb Guerrero MD [address] [place] [phone] Health Maintenance Due Date Last Done Comments Hepatitis C Virus Screening 1980 HIV Screening 1993 DTaP/Tdap/Td Vaccines (1 - Tdap) 10/27/1999 Hepatitis B Vaccines (1 of 3 - 19+ 3-dose series) 10/27/1999 Mammogram 2020 Influenza Vaccine 01/19/2025 04/20/2022, , 03/08/2013, Additional history exists COVID-19 Vaccine ( season) 2025 11/10/2021, 03/27/2021, 03/06/2021 Pap Smear (Ages 21-65) 10/17/2026 10/18/2023 Hemoglobin A1C Discontinued 06/16/2024 HPV Vaccines (No Doses Required) Completed Pneumococcal Vaccine: Pediatric (0-5 Years) and At-Risk Patients (6 to 49 Years) Aged Out No longer eligible based on patient's age to complete this topic Procedures Procedure Name Priority Date/Time Associated Diagnosis Comments ECG 12-LEAD Routine 12/31/2024 8:02 PM EDT Left upper quadrant abdominal pain THINPREP PAP(CHAR FILTER OPERATOR HELPER) HPV SCR RFX HPV 16,18/45 Routine 10/18/2023 10:19 AM EDT from Last 3 Months or Most Recently Relevant to Health Maintenance Results * (ABNORMAL) ECG 12 lead (12/31/2024 8:02 PM EDT) 12/31/2024 8:02 PM EDT Impressions Evangelina MorrisonLEIGHTON - 12/31/2024 8:02 PM EDT Twelve-lead EKG independently reviewed by myself shows T wave inversions in leads II, V5 and V6 Narrative Evangelina Morrison MA - 12/31/2024 8:02 PM EDT Twelve-lead EKG independently reviewed by myself shows T wave inversions in leads II, V5 and V6 us Vicky Sommer BLANKING MACHINE OPERATOR ECG ORDERABLES Final Result * ThinPrep Pap(Fiber Product Cutting Machine Operator) HPV Scr Rfx HPV 16,18/45 (10/18/2023 10:19 AM EDT) Report Report [facility] Comment: Final Gynecological Cytology Report ThinPrep Pap Test, HPV Screen, Reflex HPV Genotype SPECIMEN ADEQUACY: SATISFACTORY FOR EVALUATION; ENDOCERVICAL/TRANSFORMATION ZONE COMPONENT PRESENT. INTERPRETATION: NEGATIVE FOR INTRAEPITHELIAL LESION OR MALIGNANCY. Electronically Signed: Flavio Cedillo, CT(ASCP) Electronically Signed: Shayna Leos CLINICAL INFORMATION: LMP: NG Clinical History: NG Biopsy Date: NG Specimen Source: Cervical Previous Pap Date: NG HPV RESULTS: HPV mRNA E6/E7 [id number] Approved: 10/19/23 Negative REF RANGE: Negative CPT Codes: 87246 ICD Codes: Z12.4 10/18/2023 10:1 9 AM EDT 10/19/2023 11:55 AM EDT Brenda Da Silva MD LAB AMB PATH/CYTO ORDERABLES Final Result [facility] [address], [place] from Last 3 Months or Most Recently Relevant to Health Maintenance Insurance Care Teams Newspaper Editor Managing Relationship Specialty Start Date End Date Nikki Mancilla DO PCP - General Internal Medicine 09/23/21
== END 2025-03-23 10:23 | disposition home or self-care (01) ==
LOC: HO.HMCFMS 09:44
PROVIDERS: Visit Provider Student in an Organized Health Care Education/Training Program
DX: I10 Essential (primary) hypertension (principal); E78.5 Hyperlipidemia, unspecified; E11.9 Type 2 diabetes mellitus without complications; I25.10 Atherosclerotic heart disease of native coronary artery without angina pectoris; I25.2 Old myocardial infarction; I70.1 Atherosclerosis of renal artery; H40.9 Unspecified glaucoma; Z86.73 Personal history of transient ischemic attack (TIA), and cerebral infarction without residual deficits; K58.2 Mixed irritable bowel syndrome; E87.70 Fluid overload, unspecified

== ENCOUNTER 2025-04-06 09:52 | Outpatient (AMB) | payer MEDICAID, SELFPAY ==
--- NOTE | 2025-04-06 09:55 | A.OFFPC_ITS ---
Vital Signs 04/06/25 09:56 Height 5 ft 6.06 in Weight 268 lb 6 oz BMI 43.2 BP 148/74 H Blood Pressure Location Rt brachial Position Sitting Respiration 16 Pulse 81 Pulse Source Pulse Oximeter Temp 98.1 F Temp Source Oral Pulse Oximetry (%) 80 L Oxygen Delivery Method Room Air Intake Visit Reasons: 2 wk f/u Logging Worker Required: No Accompanied by: Self / Same As Patient Allergies No Known Allergies Allergy (Verified 04/06/25 10:02) Tobacco use date assessed: 04/06/25 Dental Screening Dental Screen Date: 04/06/25 Did you have a dental visit in the last 12 months?: Yes Did you have a dental problem in the last 6 months where you did not have access to dental care?: No Was dental information given to patient?: Patient has dentist HPI HPI Comments History of Present Illness Details Consent Patient was informed and verbally consented to the use of an ambient scribe for clinic note documentation during this visit. History of Present Illness The patient is a 44-year-old female presenting for follow-up of multiple chronic conditions. Essential Hypertension: The patient has a documented history of essential hypertension with consistently elevated blood pressure over time. This condition was diagnosed several years ago and is being managed with antihypertensive medication. She reports previous episodes of controlled hypertension, with recent fluctuations possibly related to concurrent conditions. Myocardial Infarction: In 2022, the patient experienced a myocardial infarction requiring acute hospital admission and subsequent stent placement. She remains under cardiology care to monitor and avert potential reoccurrences. Fluid Overload: She has had multiple episodes of fluid overload which necessitate outpatient diuresis. These episodes correlate with increasing renal function challenges and require careful fluid balance monitoring. Renal Artery Stenosis: The patient was diagnosed with renal artery stenosis and is being managed through regular evaluations in nephrology and cardiology to maintain appropriate blood pressure and kidney perfusion. Glaucoma: Diagnosed with glaucoma in her right eye, she has undergone laser surgery on both eyes and is receiving monthly ophthalmic injections to help manage intraocular pressures and maintain vision. Ischemic Stroke: The patient experienced an ischemic stroke in June resulting in partial vision loss in the right eye subsequent to the event. She is under supervision for any further neurological signs. Type 2 Diabetes Mellitus: This condition has been present long-term and was initially poorly controlled with high Hemoglobin A1c levels. She achieved relative glycemic stability after adopting Trulicity, although recent labwork shows a slight increase in A1c. Irritable Bowel Syndrome, Mixed Type: The patient endures intermittent episodes of diarrhea and constipation. These symptoms are dietary-responsive, and she continues to adopt lifestyle interventions as management. Chronic Kidney Disease Stage 3B: This patient presents with declining renal function, currently categorized as stage 3B CKD, which has led to close nephrology follow-ups to mitigate further renal compromise. Vitamin B12 Deficiency: Indicated by lab results, low levels warrant supplementation consideration to address the deficiency. Surgical History: - Stent placement in 2022 for myocardial infarction - Laser surgery in both eyes for glaucom a Medications: - Trulicity for Type 2 Diabetes Mellitus - Ezetimibe 10 mg and atorvastatin 80 mg for cholesterol management - Antihypertensives for blood pressure c ontrol (unspecified doses) Family History: - Family history of chronic kidney disea se Diagnostic Results: - Labs: Hemoglobin 10.2, Hematocrit 33.0 , MCV 74.8, Creatinine 1.74, BUN 28, Estimated GFR 32, Random Glucose 155, Hemoglobin A1c 7.9 - HDL 40, B12 36, Urine protein 3+, urin e glucose above 1000, and a microalbumin creatinine ratio of 30,247.6 Review of Systems - ENT: Reports vision loss in the right eye. - Neurological: Denies any new or worsen ing symptoms apart from known history. - Cardiovascular: Denies chest pain or p alpitations. - Gastrointestinal: Reports alternating symptoms of diarrhea and constipation. - Endocrine: Denies any hyperglycemic ep isodes, adjusting to current diabetic management. 10-point ROS reviewed and negative excep t as noted in HPI Past Medical History - Essential Hypertension - Myocardial Infarction with stent place ment in 2022 - Fluid Overload requiring outpatient di uresis - Renal Artery Stenosis - Glaucoma in the right eye with monthly injections and laser surgery in both eyes - Ischemic Stroke in June with vision loss in the right eye - Type 2 Diabetes Mellitus - Irritable Bowel Syndrome, mixed type - Chronic Kidney Disease Stage 3B Health Maintenance - Monitor dietary intake to support diab etes and IBS management - Consider vitamin B12 supplementation d ue to deficiency Physical Exam General: Well-appearing, in no acute distress. Vital signs: Blood pressure 148, improved from 185 previously. HEENT: Normocephalic, atraumatic. PERRLA, EOMI. Conjunctiva clear, sclera anicteric. Oropharynx clear, mucous membranes moist. TMs intact bilaterally. Glaucoma in the right eye, history of laser surgery in both eyes. Neck: Supple, no lymphadenopathy, no thyromegaly, no JVD or carotid bruits. Cardiovascular: RRR, normal S1/S2, no murmurs, rubs, or gallops. Peripheral pulses 2+ and symmetric. No edema. History of myocardial infarction with stent placement in 2022. Respiratory: Lungs clear to auscultation bilaterally, no wheezes, rales, or rhonchi. Normal effort. Abdomen: Soft, non-tender, non-distended. Normoactive bowel sounds. No hepatosplenomegaly, no masses. History of IBS, mixed type. MSK: Full range of motion, no joint swelling or deformity. Normal gait. Skin: Warm, dry, intact. No rashes, lesions, or pallor. Neuro: Alert and oriented x3. Cranial nerves II-XII intact. Strength 5/5 throughout. Sensation intact. Reflexes 2+ symmetric. Normal coordination and gait. History of ischemic stroke in June. Psych: Appropriate mood and affect. Normal judgment and insight. Plan 1. Essential Hypertension - Maintain regular monitoring and contin ue antihypertensive medications to achieve target levels. 2. Myocardial Infarction - Continue with sanitary landfill supervisor follow-ups to monitor post-stent status and ensure adherence to prescribed medications, including statins and antiplatelets. 3. Fluid Overload - Continue diuretic therapy monitoring w eight and edema status, adjust dosages as required. 4. Renal Artery Stenosis - Ongoing nephrology follow-up to evalua te renal artery status and function. 5. Glaucoma - Continue monthly eye injections under education nurse care while monitoring for any vision changes. 6. Ischemic Stroke - Observe for any neurological changes, offer rehabilitation for vision loss. 7. Type 2 Diabetes Mellitus - Continue Trulicity at increased dosage as prescribed. Monitor HbA1c levels and adjust management as needed. 8. Irritable Bowel Syndrome, Mixed Type - Manage symptoms through dietary adjust ments and regular monitoring. 9. Chronic Kidney Disease Stage 3B - Nephrology oversight for progression. Plan to initiate dapagliflozin for kidney protection. 10. Vitamin B12 Deficiency - Start supplementation for vitamin B12 deficiency. Discussion Notes I reiterated the critical need to maintain blood pressure control and prevent cardiovascular incidents given her myocardial infarction history. Discussions included ongoing diuretic use for managing fluid overload. Emphasis was placed on maintaining her renal function through nephrology consultations and co nsidering dapagliflozin for renal protection. Her glucose control will be optimized further following an increased dose in Trulicity; importance of adherence to the medication and her dietary regimen was stressed. The neurological impact of the stroke and ongoing management of visual symptoms were also reviewed. We discussed vitamin B12 supplementation to address deficiency. Collaborative care coordination between specialties was encouraged to streamline her management complex case. Patient Instructions - Check your blood pressure at home regu larly and adjust medications as needed, based on guidance. - Continue your heart, kidney, and eye s pecialists? appointments as per the schedule. - Maintain diuretic use as advised; watc h for signs of fluid retention. - Follow the increased Trulicity dose af ter obtaining the prescription. - Introduce iron and vitamin C as direct ed; expect potential side effects like constipation and dark stools. - Discuss potential nephrology and endoc rinology interventions, especially for kidney protection strategies. - Report any new or worsening symptoms w ith eyesight or neurological function. Medical Decision Making The patient presents with multiple chronic conditions requiring comprehensive management. Essential hypertension requires ongoing monitoring and potential medication adjustment to achieve target levels. Following her myocardial i nfarction, it is imperative to minimize recurrence risk through continued cardiology care and medical therapy adherence. Fluid management strategies are mariscal due to her propensity for fluid overload, especially in relation to renal artery stenosis management. Ophthalmology oversight is vital in managing glaucoma and vision loss from a prior ischemic stroke. Her diabetes regimen shows positive response; continued adherence to Trulicity is warranted. IBS management should focus on symptom monitoring and dietary adjustments. Chronic kidney disease requires attentive nephrology follow-up, given her current GFR status and high urine protein levels. Maintaining comprehensive chronic care coordination across specialties will optimize her health outcomes. Total time spent caring for the patient today was 30 minutes. This includes time spent before the visit reviewing the chart, time spent documenting, and time spent reviewing laboratory results, diagnostic imaging, medications, performing a medically necessary evaluation, counseling on diagnoses, care coordination, ordering appropriate tests, ordering appropriate medications. [facility] Medical History (Updated 03/24/25 @ 10:41 by Dennis Castillo MD) Irritable bowel syndrome with mixed bowel habits History of ischemic stroke Glaucoma Renal artery stenosis History of myocardial infarction IBS (irritable bowel syndrome) Encounter for screening, unspecified Diabetes type 2 STEMI (ST elevation myocardial infarction) Surgical History Hx of cardiac cath Hx of tonsillectomy Hx of appendectomy Family History Mother CVD (cardiovascular disease) Family/Other CVD (cardiovascular disease) Social History Housing: House Alcohol intake: current Alcohol intake frequency: does not drink Patient Tobacco Use Status: Never used Tobacco service: No Current occupational status: disabled Cognitive needs: No Hearing needs: No Vision needs: Yes (rx glasses) Questionnaire Thrive Questionnaire Date Thrive assessed: 03/22/25 I am a: Patient What is your living situation today?: I have a steady place to live Within the past 12 months, did the food you bought not last and you didn't have the money to get more?: I choose not to answer this question Within the past 12 months, did you worry whether your food would run out before you got money to buy more?: I choose not to answer this question Do you have trouble paying for medicines?: No Do you have trouble getting transportation to medical appointments?: Yes Do you have trouble paying your heating and electricity bill?: Yes Do you have trouble taking care of your child, family member or friend?: No Do you have trouble with day-to-day activities such as bathing, preparing meals, shopping, managing finances, etc.?: I choose not to answer this question Are you currently unemployed and looking for a job?: Yes Are you interested in more education?: No Please select the resources that you would like help with: Transportation Currently or been in a relationship where the following occur: No concerns reported THRIVE Score: 2 Physical exam (Primary Care) Vital Signs: Last Vital Signs Temp 98.1 F 04/06/25 09:56 Pulse 81 04/06/25 09:56 Resp 16 04/06/25 09:56 BP 148/74 H 04/06/25 09:56 Pulse Ox 80 L 04/06/25 09:56 Oxygen Delivery Method Room Air 04/06/25 09:56 BMI result Body Mass Index 43.2 Tobacco/Smoking Status: Tobacco use Status Tobacco use date assessed 04/06/25 04/06/25 10:00 Patient Tobacco Use Status Never used Tobacco 04/06/25 10:00 Thrive Assessment: Date of Thrive Assessment Date Thrive assessed 03/22/25 04/06/25 10:00 Currently or been in a relationship where the following occur: No concerns reported Coding Level of Care Code Est Pt Level 4 (90770) Diagnoses Hypertension I10 Renal artery stenosis I70.1 CAD (coronary artery disease) I25.10 Diabetes type 2 E11.9 IBS (irritable bowel syndrome) K58.9 History of ischemic stroke Z86.73 Iron deficiency anemia D50.9 Low vitamin B12 level R79.89 CKD stage 3b, GFR 30-44 ml/min N18.32 Assessment & Plan Assessment & Plan (1) Hypertension: Code(s): I10 - Essential (primary) hypertension Category: Medical (2) Renal artery stenosis: Code(s): I70.1 - Atherosclerosis of renal artery Category: Medical (3) CAD (coronary artery disease): Code(s): I25.10 - Atherosclerotic heart disease of [place] coronary artery without angina pectoris Category: Medical (4) Diabetes type 2: Code(s): E11.9 - Type 2 diabetes mellitus without complications Category: Medical (5) IBS (irritable bowel syndrome): Code(s): K58.9 - Irritable bowel syndrome, unspecified Category: Medical (6) History of ischemic stroke: Code(s): Z86.73 - Personal history of transient ischemic attack (TIA), and cerebral infarction without residual deficits Category: Medical (7) Iron deficiency anemia: Code(s): D50.9 - Iron deficiency anemia, unspecified (8) Low vitamin B12 level: Code(s): R79.89 - Other specified abnormal findings of blood chemistry (9) CKD stage 3b, GFR 30-44 ml/min: Code(s): N18.32 - Chronic kidney disease, stage 3b Plan Medications: New ferrous sulfate 325 mg PO DAILY 90 tabs 0RF mecobalamin (vitamin B12) 1,000 mcg PO DAILY 90 tabs 0RF dapagliflozin propanediol 10 mg PO DAILY 90 tabs 0RF ascorbic acid (vitamin C) 500 mg PO DAILY 90 tabs 0RF
[2025-04-06 09:56] VITALS: BP 148/74; PULSE 81; RESP 16; TEMP 36.7; O2SAT 80; BMI 43.2
--- OUTSIDE RECORDS SUMMARY | 2025-04-06 11:31 | XMS_ITS | Encounter Summary ---
Author Organization Formerly [facility] Address [address] [place] [address] Care Team Providers Care Margarine Maker Name Role Phone CharoNikki Primary Care Provider Encounter Details Date Type Department Care Team (Late st Contact Info) Description 08/13/2022 Scanned Document [facility]GI [facility] [address] [facility] [address] [place] [phone] Amanda Hu PA [address] [facility] [address] [place] [address] Social History Tobacco Use Types Packs/Day Years [...] PM EST Office Visit [facility], [address] [address] Kb Guerrero MD [address] [place] [address] documented as of this encounter Visit Diagnoses Not on filedocumented in this encounter Care Teams Margarine Maker Relationship Specialty Start Date End Date Nikki Mancilla DO PCP - General Internal Medicine 09/23/21 documented as of this encounter
--- OUTSIDE RECORDS SUMMARY | 2025-04-06 11:31 | XMS_ITS | Encounter Summary ---
Author Organization Formerly [facility] Address [address] [place] [address] Care Team Providers Care Digital Production Artist Name Role Phone CharoNikki Primary Care Provider [phone] Encounter Details Date Type Department Care Team (Late st Contact Info) Description 08/13/2022 Scanned Document CTGI [facility] [address] [facility] [address] [place] [phone] Amanda Hu PA 113 [facility] [address] [place] [address] Social History Tobacco Use Types Packs/Day Years [...] PM EST Office Visit [facility], [address] [address] Kb Guerrero MD [address] [place] [address] documented as of this encounter Visit Diagnoses Not on filedocumented in this encounter Care Teams Digital Production Artist Relationship Specialty Start Date End Date Nikki Mancilla DO PCP - General Internal Medicine 09/23/21 documented as of this encounter
--- OUTSIDE RECORDS SUMMARY | 2025-04-06 11:31 | XMS_ITS | Clinical Summary ---
Author Organization [facility] Address [address] [place] [address] Care Team Providers Care Residential Advisor Name Role Phone Nikki Mancilla DO Primary Care Provider Allergies Active Allergy Reactions Criticality Noted Date [...] Blood Gluc Sensor (FreeStyle Patrick 2 Sensor) [facility] [place] SCAN FOR BLOOD SUGAR AT [...] Description 03/09/2025 Transcribe Orders [facility], [address] [address] Gaurang Ji MD Combined form of age-related cataract, both eyes (Primary Dx) from Last 3 Months Family History Medical [...] PM EST Office Visit [facility], [facility] [address] [place] [address] Kb Guerrero MD [address] [place] [address] Health Maintenance Due Date Last Done Comments [...] Procedure Name Priority Date/Time Associated Diagnosis Comments THINPREP PAP(SPRING SETTER) HPV SCR RFX HPV 16,18/45 Routine 10/18/2023 10:19 AM EDT from Last 3 Months or Most Recently Relevant to Health Maintenance Results * ThinPrep Pap(Cloth Handler) HPV Scr Rfx HPV 16,18/45 (10/18/2023 10:19 AM EDT) Report Report [facility] Comment: Final Gynecological Cytology Report ThinPrep Pap Test, HPV Screen, Reflex HPV Genotype SPECIMEN ADEQUACY: SATISFACTORY FOR EVALUATION; ENDOCERVICAL/TRANSFORMATION ZONE COMPONENT PRESENT. INTERPRETATION: NEGATIVE FOR INTRAEPITHELIAL LESION OR MALIGNANCY. Electronically Signed: Flavio Cedillo, [place](ASCP) Electronically Signed: Shayna Leos CLINICAL INFORMATION: LMP: NG Clinical History: NG Biopsy Date: NG Specimen Source: Cervical Previous Pap Date: NG HPV RESULTS: HPV mRNA E6/E7 [id number] Approved: 10/19/23 Negative REF RANGE: Negative CPT Codes: 39793 ICD Codes: Z12.4 10/18/2023 10:1 9 AM EDT 10/19/2023 11:55 AM EDT Brenda Da Silva MD LAB AMB PATH/CYTO ORDERABLES Final Result Performing Organization Address City/State/[facility] Co de Phone Number [facility] [address] [place], [place] from Last 3 Months or Most Recently Relevant to Health Maintenance Insurance [id number] [place] [address] Member Subscriber Plan / Payer (Ef fective 2018-Present) Name:Janice Davenport Relation to Subscriber:Self Name:Janice Davenport Payer ID:[id number] Group ID:Not on file Type:Not on file Address: [address] [address] [facility] [id number] [place] [address] Care Teams Residential Advisor Relationship Specialty Start Date End Date Nikki Mancilla DO PCP - General Internal Medicine 09/23/21
--- OUTSIDE RECORDS SUMMARY | 2025-04-06 11:31 | XMS_ITS | Encounter Summary ---
Author Organization [facility] Address [address] [place] [address] Care Team Providers Care Regulatory Affairs Strategy Specialist Name Role Phone Nikki Mancilla DO Primary Care Provider [phone] Encounter Details Date Type Department Care Team (Late Contact Info) Description 10/27/2021 Telephone [facility] [address] [facility] [place] [address] Pcp, No Social History Tobacco Use Types [...] Upcoming Encounters Date Type Department Care Team ([facility] Contact Info) Description 06/05/2025 1:00 PM EST Office Visit [facility], [address] [address] Kb Guerrero MD [address] [place] [address] documented as of this encounter Visit Diagnoses Not on filedocumented in this encounter Care Teams Regulatory Affairs Strategy Specialist Relationship Specialty Start Date End Date Nikki Mancilla DO PCP - General Internal Medicine 09/23/21 documented as of this encounter
--- OUTSIDE RECORDS SUMMARY | 2025-04-06 11:31 | XMS_ITS | Patient Health Record ---
Author Organization [facility] [employer] [facility] Address [address] [place] [address] Care Team Providers Care Purchasing Analyst Name Role Phone Laura Kearney Primary Care Provider Simone Tamayo Unavailable [phone] Allergies Allergen (clinical drug ingredient) Drug/Non Drug Allergy documented on EMR Reaction Allergy Type Onset Date Status Shellfish (FN) SHELLFISH (uncoded) anaphylaxis Allergy Active Results Component Value Reference Range Flag Notes Comp Metabolic Panel w/eGFR 75549 Reviewed date:2024 08:38:12 AM Interpretation:eGFR 42 Performing Lab:NL1, , [address] [place], [address] Kevin Marcus M.D. Notes/Report: Received Date: 0 GLUCOSE 164 65-99 mg/dL H Fasting reference interval For someone without known diabetes, a glucose value >125 mg/dL indicates that they may have diabetes and this should be confirmed with a follow-up test. UREA NITROGEN (BUN) 27 7-25 mg/dL H CREATININE 1.57 0.50-0.99 mg/dL H EGFR 42 > OR = 60 mL/min/1.73m2 L BUN/CREATININE RATIO 17 6-22 (calc) N SODIUM 138 135-146 mmol/L N POTASSIUM 4.2 3.5-5.3 mmol/L N CHLORIDE 107 98-110 mmol/L N CARBON DIOXIDE 24 20-32 mmol/L N CALCIUM 8.7 8.6-10.2 mg/dL N PROTEIN, TOTAL 6.4 6.1-8.1 g/dL N ALBUMIN 3.1 3.6-5.1 g/dL L GLOBULIN 3.3 1.9-3.7 g/dL (calc) N ALBUMIN/GLOBULIN RATIO 0.9 1.0-2.5 (calc) L BILIRUBIN, TOTAL 0.6 0.2-1.2 mg/dL N ALKALINE PHOSPHATASE 113 31-125 U/L N AST 15 10-30 U/L N ALT 14 6-29 U/L N CT Scan: Neck, w/ IV Contras t Reviewed date:11/28/2024 03:06:17 PM Interpretation:Normal Performing Lab: Notes/Report: Normal Reason For Referral Reason 43 year old female w ith over a month of unilateral pain when swallowing. Diagnosis 1 Pharyngeal dysphagia (R13.13) Referral Organization [facility] Referring Provider First Name Laura Referring Provider Last Name Christel Referring Provider Speciality [facility] Jose L lewis Referred Provider Specialty ENT eConsult General Notes Dayana Barrno 05:00:15 PM >, Nani Rogers Referral Terrence Kiser 10/12/2024 08:27:43 PM >Submitted to [facility] Clinical Notes Karl WARNER Floral ArrangerVivian 10/13/2024 10:25:52 AM >Consult received. Further Workup or Testing by PCP Recommended Referral Priority Routine Medications Medication SIG (Take, Route, Frequency, Duration) Notes Start Date End Date Status Lidocaine 5 % Patch APPLY 1 PATCH DAILY EXTERNALLY AND REMOVE AFTER 12 HOURS FOR 30 DAYS.; Duration: 30 Active Spironolactone 50 MG Tablet 1 tablet Orally twice a day Active Aspirin Low Dose 81 MG Tablet Delayed Release TAKE 1 TABLET BY MOUTH EVERY DAY; Duration: 90 Active Ezetimibe 10 MG Tablet 1 tablet Orally Once a day Active Losartan Potassium 100 MG Tablet 2 tablets Orally Once a day; Duration: 90 days Active hydrALAZINE HCl 100 MG Tablet 1 tablet with food Orally Twice a day; Duration: 90 days Active Plavix 75 MG Tablet 1 tab(s) orally once a day Active Amoxicillin 875 MG Tablet 1 tablet Orally Twice a day; Duration: 5 days 09/06/2024 Active Chlorthalidone 50 MG Tablet 1 tab(s) orally once a day; Duration: 90 Active Jardiance 10 MG Tablet 1 tablet Orally Once a day Active EpiPen 2-Ld 0.3 MG/0.3ML Solution Auto-injector 0.3 mg intramuscularly once; Duration: 1 days 11/12/2017 Active Atorvastatin Calcium 80 MG Tablet 1 tablet Orally Once a day Active Gabapentin 300 MG Capsule 1 capsule Orally Three times a day; Duration: 90 days dose increase Active Lasix 20 MG Tablet 1 tablet Orally Once a day Active Trulicity 0.75 MG/0.5ML Solution Pen-injector 0.75 mg Subcutaneous as directed Active amLODIPine Besylate 10 MG Tablet 1 tab(s) orally once a day Active BLOOD PRESSURE CUFF, 1 XX TOPICAL (DIAGNOSIS I 10.0) DAILY AND NEEDED BLOOD PRESSURE READING; Duration: 365 DAYS *DC or Stop and Enter Medication back* 05/23/2017 Active Metoprolol Succinate ER 100 MG Tablet Extended Release 24 Hour 1 tab(s) orally once a day; Duration: 30 day(s) Active Ventolin HFA 108 (90 Base) MCG/ACT Aerosol Solution 1 puff as needed Inhalation every 4 hrs; Duration: 90 days Active Immunizations Vaccine Route Administration [...] History Observation Description Sex Assigned At Female Social History Social History Social Info Question Answer Notes Patient's perception of literacy I read well in: French 10/31/2024 ES Tobacco Control (Standard) Tobacco use: Nonsmoker Health Literacy How confident are yo u filling out medical forms by yourself? 1 Extremely 10/31/2024 ES How do you like To Learn : Verbal all of them, 10/31/2024 ES Language Spoken Language Spoken French 10/31/2024 ES Problems Problem Type SNOMED Code ICD Code Onset Dates Problem Status W/U Status Risk Notes Problem Abnormal blood pressure (35310381) Encounter for examination of blood pressure with abnormal findings (Z01.31) 2024 Active confirmed Problem Body mass index 40+ - severely obese (485026025) Body mass index (BMI) 45.0-49.9, adult (Z68.42) 2024 Active confirmed Problem Body mass index 40+ - morbidly obese (606497607) Body mass index (BMI) 50-59.9, adult (Z68.43) 2024 Active confirmed Problem Headache disorder (294526924) Other headache syndrome (G44.89) Active confirmed Problem Obesity (588597034) Obesity (E66.9) Active confirmed Problem Hypertension (70487725) Hypertension (I10) Active confirmed Problem Gastroesophageal reflux disease (213355029) GERD without esophagitis (K21.9) Active confirmed Problem Fatty liver (779777399) Fatty liver (K76.0) Active confirmed Problem Uncomplicated mild persistent asthma (258321011) Mild persistent asthma without complication (J45.30) Active confirmed doing well aske d to establish care with primary care provider in [place] Problem Shellfish allergy (350161359) Shellfish allergy (Z91.013) Active confirmed needs testing and send epi pen Problem Gastritis and duodenitis (049923864) Gastritis and duodenitis (K29.90) Active confirmed Problem Occlusion and stenosis of multiple and bilateral cerebral arteries (971568265) Bilateral carotid artery stenosis (I65.23) Active confirmed Problem History of multiple allergies (612388568) Multiple allergies (Z88.9) Active confirmed Wishes to go to allergy and immunology she has no why sometimes when she goes to someone house and is cooked seafood she still feels like she is having a reaction Problem Oropharyngeal dysphagia (18093671) Oropharyngeal dysphagia (R13.12) Active confirmed get barium swallow and cosider gastric emptying Problem Degeneration of lumbosacral intervertebral disc (26883371) Degenerative disc disease at L5-S1 level (M51.36) Active confirmed Concern for advancement and disc disease get MRI Problem Displacement of lumbar intervertebral disc without myelopathy (12760474) Herniation of left side of L4-L5 intervertebral disc (M51.26) Active confirmed Problem 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 (633016444837787) Coronary artery disease involving cahuilla coronary artery of cahuilla heart without angina pectoris (I25.10) Active confirmed Will need to ge t records from previous providers patient is out of range for her glucoses and blood pressure Problem IgA deficiency (80601343) IgA deficiency (D80.2) Active confirmed Problem Old myocardial infarction (4704900) History of ST elevation myocardial infarction (STEMI) (I25.2) Active confirmed dr ale andrew at [facility] Problem Stenosis of left renal artery (1075498605142621 3) Left renal artery stenosis (I70.1) Active confirmed Problem Pharyngeal dysphagia (48774439751698) Pharyngeal dysphagia (R13.13) Active confirmed Problem Hypothyroidism (58898450) Hypothyroidism, unspecified type (E03.9) Active confirmed get [...] call 911 go to the hospital Problem Hyperlipidaemia (42110302) Hyperlipidemia, unspecified hyperlipidemia type (E78.5) Active confirmed get labs 2 week s Problem 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) (8436522130092583 9) 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 (E11.3493) Active confirmed Problem Peripheral circulatory disorder associated with diabetes mellitus (105635626) Type 2 diabetes mellitus with cardiac complication [...] taught how to use continuous monitoring Problem Heart failure (10896244) Acute on chronic congestive heart failure, unspecified heart failure type (I50.9) Active confirmed Problem Resistant hypertension (720024097098350) Resistant hypertension (I1A.0) Active confirmed Vital Signs Temperature 97.7 degrees Fahrenheit 10/31/2024 Respiratory Rate 18 /min 10/31/2024 Blood pressure diastolic 117 mm Hg 10/31/2024 Oximetry 99 % 10/31/2024 Height 62.25 in 10/31/2024 Blood pressure systolic 173 mm Hg 10/31/2024 Weight 282 lbs 10/31/2024 BMI 51.16 kg/m2 10/31/2024 Encounters Encounter Location Date Provider Diagnosis [address] [address] 10/13/2024 Laura Kearney [address] [address] 2024 Laura Kearney [address] [address] 11/22/2024 Laura Kearney [address] [address] 01/04/2025 Laura Kearney [address] [address] 03/16/2025 Simone Tamayo [address] [address] 03/30/2025 Laura Kearney [address] [address] 05/08/2024 Simone Tamayo [address] [address] 10/13/2024 Laura Kearney [address] [address] 10/12/2024 Laura Kearney Pharyngeal dysphagia R13.[address] [address] 10/19/2024 Laura Kearney Pharyngeal dysphagia R13.[address] [address] 07/13/2024 Laura Kearney Ptosis, right H02.40 1 ; Monocular diplopia of right eye H53.2 and Bilateral carotid artery stenosis I65.23 [place] [address] 05/11/2024 Laura Canelajuan carlos Type 2 diabetes mellitus with cardiac complication E11.59 ; Resistant hypertension I1A.0 and Left renal artery stenosis I70.1 [place] [address] 10/31/2024 Laura Canelajuan carlos Shortness of breath R06.02 ; Lower extremity edema R60.0 ; Pharyngeal dysphagia R13.13 ; Encounter for behavioral health screening Z13.30 ; Encounter for examination of blood pressure with abnormal findings Z01.31 and Body mass index (BMI) 50-59.9, adult Z68.[address] [address] 09/06/2024 Simonearline Chapmanman Hypertension I10 ; Acute sinusitis J01.90 and Body mass index (BMI) 45.0-49.9, adult Z68.42 Assessments Encounter Date Diagnosis (ICD Code) Assessment Notes Treatment Notes Treatment Clinical Notes Section Notes 09/06/2024 Hypertension (ICD-10 - I10) 09/06/2024 Acute [...] cardiology for renal artery stenosis and CHF Employee Operations Examiner appointment tomorrow Counseled patient that if symptoms change or worsen she needs to go to the ER Coding: Use UPDATED E&M code. Also applies when carrying over a previous visit. 07/13/2024 Ptosis, right (ICD-10 - H02.401) Currently being evaluated by ophthalmology Was wearing right eye patch but they told her she could remove it last week She can focus on one thing or person but only if they are staying still, she cannot shift focus easily Improving from a few weeks ago per patient 07/13/2024 Monocular diplopia of right eye (ICD-10 - H53.2) 10/31/2024 Lower extremity edema (ICD-10 - R60.0) Counseled patient to take extra lasix and chlorthaidone dose this afternoon Follow up with appraiser irrigation tax tomorrow Coding: Use UPDATED E&M code. Also applies when carrying over a previous visit. 05/11/2024 Type 2 diabetes mellitus with cardiac complication (ICD-10 - E11.59) Labs reviewed and questions addressed A1c 7.2 - patient reporting some lows in the 60s from her CGM Will continue with the same treatment of trulicity - no increase in dose Diet and exercise counseled 05/11/2024 Resistant hypertension (ICD-10 - I1A.0) Manual BP 160/92 Resistent HTN secondary to left renal artery stenosis Senior Applications Engineer treating HTN Continue with current medications and specialist f/u 05/11/2024 Left renal artery stenosis (ICD-10 - I70.1) 10/31/2024 Pharyngeal dysphagia (ICD-10 - R13.13) Most [...] only taking Brilinta 90 mg nightly - appraiser irrigation tax aware Patient reports appraiser irrigation tax is aware of her BP - high while admitted as well Disability form completed Follow up with cardiology first week of July Counseled and stressed to patient that she should have a low threshold for returning to the ER - any new or worsening symptoms 10/31/2024 Encounter for behavioral health screening (ICD-10 - Z13.30) Coding: Use UPDATED E&M code. Also applies when carrying over a previous visit. 10/31/2024 Encounter for examination of blood pressure with abnormal findings (ICD-10 - Z01.31) Coding: Use UPDATED E&M code. Also applies when carrying over a previous visit. 10/31/2024 Body mass index (BMI) 50-59.9, adult (ICD-10 - Z68.43) Coding: Use UPDATED E&M code. Also applies when carrying over a previous visit. Plan Of Treatment Pending Test Test Name Order Date Echocardiogram 08/17/2022 Mammogram: Bilateral Screening 4 Basic Metabolic Panel w/eGFR 32408 05/23 Allergy Respiratory Profile Region I 106 43 05/05/2018 CBC (H/H,RBC,Indices,WBC,Plt) 1759 05/23 Ova and Parasites,3 Specimens 6652 09/10 Ova and Parasites,3 Specimens 6652 07/16 CBC (Includes Diff/Plt) 6399 02/04/2022 TSH w/Free T4 rfx 17169 05/23/2017 Hemoglobin A1c 496 11/25/2017 C.difficile Toxin A and B [address]18 09/11/19 20 Microalbumin,[facility] (w/creat) 6517 08/20 Microalbumin,[facility] (w/creat) 6517 08/2016 Lipid Panel, Standard [...] Coverage End Date Medicaid Leonor Balderas [place] [address] [phone] [id number] Janice Davenport Self - patient is the [...]
--- OUTSIDE RECORDS SUMMARY | 2025-04-06 11:31 | XMS_ITS | Encounter Summary ---
Author Organization [facility] Address [address] [place] [address] Care Team Providers Care Medical Or Surgical Instrument Maker Name Role Phone Pcp, No Primary Care Provider [facility] Primary Care Provider Nikki Mancilla DO Primary Care Provider [phone] Encounter Details Date Type Department Care Team (Late Contact Info) Description 11/03/2017 Scanned Document [address] [phone] Provider, Generic Social History Tobacco Use Types [...] EST Office Visit [facility], [address] [phone] Kb Guerrero MD [address] [place] [address] documented as of this encounter Visit Diagnoses Not on filedocumented in this encounter Care Teams Medical Or Surgical Instrument Maker Relationship Specialty Start Date End Date Pcp, No PCP - General General Medicine 10/15/16 05/02/18 [facility] [address] [place] [address] PCP - General 05/03/18 09/22/21 Nikki Mancilla DO [address] [place] [address] PCP - General Internal Medicine 09/23/21 documented as of this encounter
--- OUTSIDE RECORDS SUMMARY | 2025-04-06 11:31 | XMS_ITS | Clinical Summary ---
Author Organization [facility] Address [address] [place] [address] Care Team Providers Care Elephant Tamer Name Role Phone Nikki Mancilla DO Primary [...] Advance Directives For more information, please contact: [phone] Latest Code Status on File Code Status [...] way: discussion with patient . Care Teams Elephant Tamer Relationship Specialty Start Date End Date Nikki Mancilla DO [address] [place] [address] PCP - General Internal Medicine 11/17/17
--- OUTSIDE RECORDS SUMMARY | 2025-04-06 11:32 | XMS_ITS | Encounter Summary ---
Author Organization [facility] Address [address] [place], [place] [address] Care Team Providers Care Balance Clerk Name Role Phone Pcp, No MD Primary Care Provider Unavailabl e Encounter Details Date Type Department Care Team (Late st Contact Info) Description 02/28/2025 Results Follow-Up [facility] [address] [place], [place] [address] Cam Jimenez PA [address] [place] [address] [place] [address] Renal function panel, N-terminal pro B-type natriuetic [...] Care Team (Late st Contact Info) Description 04/26/2025 11:30 AM EST Office Visit [facility] [address] [place] [address] Cassidy Melendez MD [address] [place] [address] [place] [address] 05/02/2025 11:00 AM EST Office Visit [facility] Department of Cardiology [address] [place] [address] Randall Aguiar MD [address] [place] [address] [place] [address] 06/06/2025 10:00 AM EST Nurse Only [facility] [address] [facility] [place] [address] documented as of this encounter Visit Diagnoses Not on filedocumented in this encounter Care Teams Balance Clerk Relationship Specialty Start Date End Date PcpNiki MD [address] [place] [address] PCP - General Internal Medicine 01/18/23 documented as of this encounter
--- OUTSIDE RECORDS SUMMARY | 2025-04-06 11:32 | XMS_ITS | Encounter Summary ---
Author Organization [facility] Address [address] [place] [address] Care Team Providers Care Plate Worker Name Role Phone Pcp, No MD Primary Care Provider Unavailabl e Reason for Referral * [facility] (Routine) - Closed Specialty Diagnoses / Procedures Referred By Dianelys t Referred To Contact Cardiology Diagnoses Heart failure with mid-range ejection fraction (HFmEF) (HCC) Gabi Rollins APRN [address] [place] [address] Phone: tel: fax: [facility] [address] [place] [address] Phone: tel: fax: Referral ID Status Reason Start Date Expiration Date Visits Re quested Visits Authorized [id number] Closed 11/01/2024 12/06/2025 1 1 Encounter Details Date Type Department Care Team (Late st Contact Info) Description 11/01/2024 Orders Only [facility] [address] [place] [address] [phone] Gabi Rollins APRN [address] [place] [address] Heart failure with mid-range ejection fraction (HFmEF) [...] Description 04/26/2025 11:30 AM EST Office Visit [facility] [address] [place] [address] Cassidy Melendez MD [address] [place] [address] [place] [address] 05/02/2025 11:00 AM EST Office Visit [facility] [address] [place] [address] Randall Aguiar MD [address] [place] [address] [place] [address] 06/06/2025 10:00 AM EST Nurse Only [facility] [address] [place] [address] Scheduled Referrals Name Type Priority Associated Diagnoses Order Schedule Referral for OP Heart Failure Infusion Outpatient Referral Routine Heart failure with mid-range ejection fraction (HFmEF) (HCC) 1 Occurrences starting 11/01/2024 until 05/04/2025 documented as of this encounter Visit Diagnoses Diagnosis Heart failure with mid-range ejection fraction (HFmEF) (HCC)- Primary documented in this encounter Care Teams Plate Worker Relationship Specialty Start Date End Date PcpNiki MD [address] [place] [address] PCP - General Internal Medicine 01/18/23 documented as of this encounter
--- OUTSIDE RECORDS SUMMARY | 2025-04-06 11:32 | XMS_ITS | Clinical Summary ---
Author Organization [facility] Address [address] [place] [address] Care Team Providers Care Phlebotomy Supervisor Name Role Phone Pcp, No MD Primary Care Provider Unavailabl e Allergies Active Allergy Reactions Criticality Noted Date Comments Other Other (see comments) 01/10/2008 Seasonal allergy Shellfish Containing Products Shortness of breath High 09/08/2017 Medications Ventolin HFA 90 mcg/actuation inhaler Inhale 2 puffs every 4 (four) hours as needed. Active amLODIPine (NORVASC) 10 mg tablet 1 Active aspirin 81 mg EC tablet Take 81 mg by mouth in the morning. Active atorvastatin (LIPITOR) 40 mg tablet Take 40 mg by mouth. 6 Active chlorthalidone (HYGROTEN) 50 mg tablet Take 50 mg by mouth in the morning. Active EPINEPHrine (EPIPEN) 0.3 mg/0.3 mL injection 3 Active FreeStyle Patrick 2 Sensor kit 3 Active Tresiba FlexTouch U-200 200 unit/mL (3 mL) insulin pen 90 UNITS SUBCUTANEOUS INJECTION DAILY,FOR 30 DAYS, ROTATE INJECTION SITES 3 Active insulin glargine (SEMGLEE) 100 unit/mL injection Inject 90 Units under the skin. Active INSULIN LISPRO SUBQ Inject under the skin. Active Linzess 72 mcg capsule PRN as needed Active norethindrone (Ortho Micronor) 0.35 mg tablet Take 1 tablet by mouth in the morning. 3 Active dulaglutide (TRULICITY) 0.75 mg/0.5 mL subcutaneous pen injector 4 Active gabapentin (NEURONTIN) 300 mg capsule TAKE 1 CAPSULE BY MOUTH THREE TIMES A DAY FOR 90 DAYS 4 Active levonorgestreL (Mirena) intrauterine device 4 Active losartan (Cozaar) 100 mg tablet Take 1 tablet (100 mg total) by mouth in the morning. 90 tablet 1 4 025 Active lidocaine (LIDODERM) 5 % patch Apply 1 patch topically in the morning. Active ezetimibe (ZETIA) 10 mg tablet Take 1 tablet (10 mg total) by mouth in the morning. 90 tablet 3 5 Active Jardiance 10 mg tablet Take 1 tablet (10 mg total) by mouth in the morning. 90 tablet 3 5 Active spironolactone (ALDACTONE) 50 mg tablet Take 50 mg by mouth in the morning and 50 mg before bedtime. Active torsemide (DEMADEX) 20 mg tablet Take 2 tablets (40 mg total) by mouth in the morning. 180 tablet 3 5 Active hydrALAZINE (APRESOLINE) 50 mg tablet Take 2 tablets (100 mg total) by mouth in the morning and 2 tablets (100 mg total) before bedtime. 360 tablet 5 025 Active carvediloL (COREG) 12.5 mg tablet TAKE 1 TABLET (12.5 MG TOTAL) BY MOUTH IN THE MORNING AND IN THE EVENING WITH MEALS 180 tablet 1 5 Active Hospital, Clinic, or Other Facility Administered Medication Ordered Dose Route Frequency Start Date End Date Status inclisiran (LEQVIO) injection 284 mgIndications:Non-ST elevation myocardial infarction (NSTEMI) ([facility]) 284 mg subQ Every 6 months 05/21/2025 [...] Department Care Team Description 02/28/2025 Results Follow-Up [facility] [address] [place] [address] Cam Jimenez PA Renal function panel, N-terminal pro B-type natriuetic peptide (NTproBNP) 02/26/2025 Orders Only [facility] Department of Cardiology [address] [place] [address] Cam Jimenez PA 02/23/2025 10:00 AM EDT - 02/23/2025 11:59 PM EDT Hospital Encounter [facility] Department of Noninvasive Cardiology [address] [place] [address] Cam Jimenez PA Other chest pain Discharge Disposition: Home or Self Care from Last 3 Months Immunizations Immunization Administration Dates Next Due COVID-19 mRNA (CrowdB[employer]cer) 11/10/2021 H1N1 Inj Preservative Free 05/06/2009 HPV, [...] PM EDT Sexual Orientation Not on file Last Filed [...] Description 04/26/2025 11:30 AM EST Office Visit [facility] Department of Nephrology [address] [place] [address] Cassidy Melendez MD [address] [place] [address] [place] [address] 05/02/2025 11:00 AM EST Office Visit [facility] Department of Cardiology [address] [place] [address] Randall Aguiar MD [address] [place] [address] [place] [address] 06/06/2025 10:00 AM EST Nurse Only [facility] Department of Cardiology [address] [place], [place] [address] Health Maintenance Due Date Last Done Comments [...] 02/23/2025 11:10 AM EDT Other chest pain MICROALBUMIN, URINE, RANDOM WITH CREATININE Routine 04/27/2024 12:30 PM EST Renovascular hypertension Renal artery stenosis (HCC) Uncontrolled hypertension Nephrotic range proteinuria from Last 3 Months or Most Recently Relevant to Health Maintenance Results * (ABNORMAL) N-terminal pro B-type natriuetic peptide (NTproBNP) (02/27/2025 10:45 AM EDT) NT-proBNP 4,008(H) <300 pg/mL 02/27/2025 1:29 PM EDT [facility] Comment: For patients presenting with clinical [...] BACK LAB BLOOD ORDERABLES Final Resul t [facility] [address] [place] [address], [place] [phone] * Aldosterone (02/27/2025 10:45 AM EDT) Aldosterone 7.6 ng/dL 03/01/2025 3:39 PM EDT [facility] Comment: INTERPRETIVE INFORMATION: Aldosterone, Serum Reference intervals [...] reference intervals for this test in the [employer] Laboratory Test Directory ([employer]). Performed By: [facility] [address] [place] [address] Maintenance Director: Nikita Jarrett MD, PhD CLIA Number: [id number] Blood Venous blood specimen / Unknown Venipuncture / Unknown 02/27/2025 10:45 AM EDT 02/27/2025 10:45 AM EDT us Cassidy Melendez MD LAB BLOOD ORDERABLES N O STAT Final Result [facility] [address] [place] [address] * Renin activity (02/27/2025 10:45 AM EDT) Pathologist [facility] Renin Activity 0.7 ng/mL/hr 03/02/2025 10:17 AM EDT [facility] Comment: INTERPRETIVE INFORMATION: Renin Activity Adult, Normal sodium diet: Supine ................. 0.2-1.6 ng/mL/hr Upright ................ 0.5-4.0 ng/mL/hr Children, Normal sodium diet, Supine: (1-7 days) ..... 2.0-35.0 ng/mL/hr Cord blood [...] developed and its performance characteristics determined by [facility]. It has not been cleared or approved by the [place] Food and Drug Administration. This test was performed in a CLIA certified laboratory and is intended for clinical purposes. Performed By: [facility] [address] [place] [address] Maintenance Director: Nikita Jarrett MD, PhD CLIA Number: [id number] Blood Venous blood specimen / Unknown Venipuncture / Unknown 02/27/2025 10:45 AM EDT 02/27/2025 10:45 AM EDT Cassidy Melendez MD LAB BLOOD ORDERABLES N O STAT Final Result [facility] [address] [place] [address] * (ABNORMAL) Renal function panel (02/27/2025 10:45 AM EDT) Sodium 138 137 - 144 mmol/L 02/27/2025 1:29 PM EDT [facility] Potassium 4.0 3.6 - 5.1 mmol/L 02/27/2025 1:29 PM [facility] Chloride 101 100 - 111 mmol/L 02/27/2025 1:29 PM [facility] CO2 27 23 - 32 mmol/L 02/27/2025 1:29 PM [facility] Anion gap 10 3 - 11 mmol/L 02/27/2025 1:29 PM [facility] BUN 30(H) 8 - 24 mg/dL 02/27/2025 1:29 PM [facility] Creatinine 1.80(H) 0.60 - 1.20 mg/dL 02/27/2025 1:29 PM [facility] eGFR 35(L) >60 mL/min/1. 73m*2 02/27/2025 1:29 PM [facility] Comment: Calculation based on the Chronic [...] 70 + 75 ml/min/1.73 m2 Pursuant to [place] Public Act 06-120(1)(b)(1). The 2020 CKD-EPI calculation used to estimate eGFR has only been validated for patients 18 years or older. Glucose 160 70 - 200 mg/dL 02/27/2025 1:29 PM [facility] Comment: Normal fasting glucose 75-99 mg/dL Impaired fasting glucose 100 - 125 mg/dL Fasting glucose >125 mg/dL - provisional diagnosis of diabetes mellitus Random glucose >= 200 mg/dl is considered diagnostic for diabetes ADA Guidelines: Classification and Diagnosis of Diabetes: Standards of Medical Care in Diabetes - 202, Diabetes Care 202; S15-S33. Albumin 3.4(L) 3.8 - 5.3 g/dL 02/27/2025 1:29 PM EDT [facility] Calcium 9.4 8.4 - 10.2 mg/dL 02/27/2025 1:29 PM EDT [facility] PHOSPHORUS 3.9 2.4 - 4.8 mg/dL 02/27/2025 1:29 PM EDT [facility] Blood Venous blood specimen / Unknown Venipuncture / Unknown 02/27/2025 10:45 AM EDT 02/27/2025 10:45 AM EDT Cassidy Melendez MD LAB BLOOD ORDERABLES F inal Result [facility] [address] [place] [address], * Transthoracic echo (TTE) complete with PRN definity (02/23/2025 11:10 AM EDT) 02/23/2025 10:1 3 AM EDT [facility] - 02/25/2025 2:54 [place] [address] [email or web address] Patient: Janice Davenport Transthoracic Echocardiogram 02/23/2025 : 1980 Age: 44 Gender: F Location: [facility] air tester: Cam Jimenez Jason Ordering MD: Cam Jimenez Store Manager: Michelle Christiansen Copies to: Reason for study: [...] 22 20 --------- mari, TDI E', med mair, (L) 4.9 cm/sec 4.9 >=7.0 TDI E/e', [...] range. Reviewed and confirmed by Evelin Olivares [id number] Procedure Note Evelin Olivares MD - 02/25/[address] [address] [email or web address] Patient: Janice Davenport Transthoracic Echocardiogram 02/23/2025 : 1980 Age: 44 Gender: F Location: [facility] air tester: Cam Jimenez Jason Ordering MD: Cam Jimenez Store Manager: Michelle Christiansen Copies to: Reason for study: [...] range. Reviewed and confirmed by Evelin Olivares [id number] Cam BACK CV ECHO PROCEDURES Final Result Performing Organization Address City/[facility]/ZIP Co de Phone Number [facility] [address] [place] [address], * (ABNORMAL) Microalbumin/creatinine ratio (04/27/2024 12:30 PM EST) Microalbumin/C reat Ratio 3,354(H) 2 - 20 mg/g Creat 04/27/2024 1:58 PM EST [facility] Urine Urine specimen / Unknown Non-blood Collection / Unknown 04/27/2024 12:30 PM EST 04/27/2024 1:04 PM EST Cassidy Melendez MD LAB URINE ORDERABLES F inal Result [facility] [address] [place] [address], [place] [phone] from Last 3 Months or Most Recently Relevant to Health Maintenance Insurance MEDICAID [place] D Care Teams Phlebotomy Supervisor Relationship Specialty Start Date End Date PcpNiki MD [address] [place] [address] PCP - General Internal Medicine 01/18/23
--- OUTSIDE RECORDS SUMMARY | 2025-04-06 11:32 | XMS_ITS | Clinical Summary ---
Author Organization [facility] Address [address] [place] [address] Phone Care Team Providers Care Senior Operator Name Role Phone Rhonda Liao MD Primary Care Provider [phone] Allergies Active Allergy Reactions Criticality Noted Date [...] Care Team Description 03/07/2025 Telephone Neurostroke - [facility] [address] [place] [address] Sydnie Castillo MA from Last 3 Months Immunizations Immunization Administration Dates Next Due Pfizer SARS-CoV-2 COVID-19, mRNA, LNP-S, preservative free 03/27/2021,03/06/2021 Surgical History Surgery Date Site/Laterality Comments TONSILLECTOMY PROCEDURE:TONSILLECTOMY CYST REMOVAL PROCEDURE:CYST REMOVAL APPENDECTOMY 12/03/2016 N/A PROCEDURE:APPENDECTOMY;COMMEN T:Procedure: APPENDECTOMY; Surgeon: Balta Reyes MD; Location: [facility]; Service: General; Laterality: N/A; DILATION AND CURETTAGE OF UTERUS 02/03/2019 N/A PROCEDURE:DILATION AND CURETTAGE OF UTERUS;COMMENT:Procedure: D&C WITH SUCTION; Surgeon: Minal Bianchi DO; Location: [facility]; Service: Gynecology; Laterality: N/A; BREAST CYST EXCISION Bilateral PROCEDURE:BREAST CYST EXCISION COLONOSCOPY PROCEDURE:COLONOSCOPY UPPER GASTROINTESTINAL ENDOSCOPY PROCEDURE:UPPER GASTROINTESTINAL ENDOSCOPY COLONOSCOPY 12/02/2021 N/A PROCEDURE:COLONOSCOPY;COMMENT :Procedure: COLONOSCOPY; Surgeon: Adi Serrano MD; Location: [facility]; Service: Gastroenterology; Laterality: N/A; UPPER GASTROINTESTINAL ENDOSCOPY 12/02/2021 N/A PROCEDURE:UPPER GASTROINTESTINAL ENDOSCOPY;COMMENT:Procedure: UPPER ENDOSCOPY-EGD; Surgeon: Adi Serrano MD; Location: [facility]; Service: Gastroenterology; Laterality: N/A; DILATION AND CURETTAGE OF UTERUS 01/30/2022 N/A PROCEDURE:DILATION AND CURETTAGE OF UTERUS;COMMENT:Procedure: SUCTION D&C; Surgeon: Minal Bianchi DO; Location: [facility]; Service: Gynecology; Laterality: N/A; Medical History Medical History Date Comments Asthma DX:Asthma COPD (chronic obstructive pu lmonary disease) ([facility] V24, [facility] V28) DX:COPD (chronic o bstructive pulmonary disease) ([facility]) Diabetes mellitus ([facility] V 24, [facility] V28) DX:Diabetes mellitus (HCC) Hypertension DX:Hypertension Disease of thyroid gland DX:Dise ase of thyroid gland Hyperchloremia DX:Hyperchloremi a GERD (gastroesophageal reflux disease) DX:GERD (gastroesophageal reflux disease) Herniated lumbar intervertebral disc DX:Herniated lumbar intervertebral disc Back pain DX:Back pain Diverticulitis DX:Diverticuliti s Enlarged liver DX:Enlarged live r Diabetes mellitus, type II ( [facility] V24, [facility] V28) DX:Diabetes mellitus, type I I ([facility]) Hypothyroidism DX:Hypothyroidis m Covid 05/2020 DX:COVID Myocardial infarction ([facility]/ CC V24, [facility] V28) DX:Myocardial infarction (HCC);COMMENT:07/2019 Hyperlipidemia DX:Hyperlipidemi a [...] 05/03/2025 11:00 AM EST Office Visit Neurostroke [facility] [address] [place] [address] Adeel Crow MD [address] Georgi [address] [place] [address] 09/17/2025 3:30 PM EDT Office Visit Internal Medicine - [facility] [address] [place], [place] [phone] Rhonda Liao MD [address] [place], [place] Health Maintenance Due Date Last Done [...] LAB CHEMISTRY METHOD 06/20/2024 11:17 AM EST [facility] Potassium 4.5 3.5 - 5.1 mmol/L LAB CHEMISTRY METHOD 06/20/2024 11:17 AM EST [facility] Chloride 103 98 - 107 mmol/L LAB CHEMISTRY METHOD 06/20/2024 11:17 AM EST [facility] CO2 26 24 - 32 mmol/L LAB CHEMISTRY METHOD 06/20/2024 11:17 AM EST [facility] Anion Gap 6 5 - 14 LAB CHEMISTRY METHOD 06/20/2024 11:17 AM [facility] Glucose 220(H) 70 - 199 mg/dL LAB CHEMISTRY METHOD 06/20/2024 11:17 AM [facility] BUN 38(H) 7 - 17 mg/dL LAB CHEMISTRY METHOD 06/20/2024 11:17 AM [facility] Creatinine 1.60(H) 0.50 - 1.00 mg/dL LAB CHEMISTRY METHOD 06/20/2024 11:17 AM [facility] eGFR 41(L) >=60 mL/min/1. 73m2 LAB CHEMISTRY METHOD 06/20/2024 11:17 AM [facility] Comment:Calculation based on the Chronic Kidney Disease Epidemiology Collaboration (CKD-EPI) equation refit without adjustment for race. BUN/Creatinine Ratio 23.8(H) 12.0 - 20.0 LAB CHEMISTRY METHOD 06/20/2024 11:17 AM [facility] Calcium 8.4 8.4 - 10.2 mg/dL LAB CHEMISTRY METHOD 06/20/2024 11:17 AM [facility] Blood Venous blood specimen / Unknown Venipuncture / Unknown 06/20/2024 10:28 AM EST 06/20/2024 10:46 AM EST Adi Cabezas DO LAB BLOOD ORDERABLES Final Res ult [facility] [address] [place] [address], * (ABNORMAL) Hemoglobin A1c (06/16/2024 7:00 PM EST) Hemoglobin A1C 7.2(H) <5.7 % LAB CHEMISTRY METHOD 06/17/2024 9:57 AM EST [facility] Mean Bld Glu Estim. 160 mg/dL LAB CHEMISTRY METHOD 06/17/2024 9:57 AM EST [facility] Blood Venous blood specimen / Unknown Venipuncture / Unknown 06/16/2024 7:00 PM EST 06/16/2024 7:32 PM EST Narrative [facility] - 06/17/2024 9:57 AM EST ADA Guidelines: Increased risk Diabetes Mellitus A1C 5.7 - 6.4% and Fasting Blood Glucose 100 - 125 mg/dl Diabetes Mellitus: A1C >6.5% and Fasting Blood Glucose >125 mg/dl David Valentino MD LAB BLOOD ORDERABLES Scarlet l Result [facility] [address] [place] [address], [place] [phone] * (ABNORMAL) Lipid panel (06/16/2024 7:00 PM EST) [facility] Signature Cholesterol 300(H) 0 - 200 mg/dL LAB CHEMISTRY METHOD 06/16/2024 8:09 PM EST [facility] Triglycerides 191(H) <150 mg/dL LAB CHEMISTRY METHOD 06/16/2024 8:09 PM EST [facility] HDL 41 35 - 88 mg/dL LAB CHEMISTRY METHOD 06/16/2024 8:09 PM EST [facility] LDL Calculated 221(H) 50 - 130 mg/dL LAB CHEMISTRY METHOD 06/16/2024 8:09 PM EST [facility] VLDL Cholesterol Victoriano 38.2 mg/dL LAB CHEMISTRY METHOD 06/16/2024 8:09 PM EST [facility] Comment:No established refer ence range. Blood Venous blood specimen / Unknown Venipuncture / Unknown 06/16/2024 7:00 PM EST 06/16/2024 7:32 PM EST David Valentino MD LAB BLOOD ORDERABLES Scarlet l Result [facility] [address] [place] [address], [place] [phone] * Urine Albumin Creatinine Ratio (12/06/2023) Urine Albumin Creatinine Ratio abstracted Historical Provider HEALTH MAINTENANCE Final Result * Cervical Cancer Screening: HPV (10/18/2023) Cervical Cancer Screening: HPV negative, abstracted Historical Provider [facility]ALTH [facility] Final Result * MAMMOGRAM SCREENING BILATERAL 3D [...] on 09/27/2023 1:55 PM. Workstation Name - [id number] Procedure Note Frederick Tolliver MD - 02/07/2024 [...] MD on 09/27/2023 1:55 PM.Workstation Name - [id number] Simone Tamayo DO IM BI PROCEDURES Final Result from Last 3 Months or Most Recently Relevant to Health Maintenance Insurance [facility] [place] [address] Advance Directives * Full Code - Default [...] currently active code status orders. Care Teams Senior Operator Relationship Specialty Start Date End Date Rhonda Liao MD [address] [facility] [place] [address] PCP - General Internal Medicine 11/14/24
--- OUTSIDE RECORDS SUMMARY | 2025-04-06 11:32 | XMS_ITS | Encounter Summary ---
Author Organization [facility] Address [address] [place] [address] Care Team Providers Care Aircraft Part Assembler Name Role Phone Pcp, No MD Primary Care Provider Unavailabl e Encounter Details Date Type Department Care Team (Late st Contact Info) Description 11/08/2024 Orders Only [facility]iology [address] [place] [address] Stacey Martin, BENCH REPAIR TECHNICIAN [address] [facility] [place] [address] Social History Tobacco Use Types Packs/Day Years [...] Description 04/26/2025 11:30 AM EST Office Visit [facility] Nephrology [address] [place], [place] [phone] Cassidy Melendez MD [address] [facility] [place] [address] 05/02/2025 11:00 AM EST Office Visit [facility] Department of Cardiology [address] [place] [address] Randall Aguiar MD [address] [place] [address] [place] [address] 06/06/2025 10:00 AM EST Nurse Only [facility] Department of Cardiology [address] [facility] [place] [address] documented as of this encounter Visit Diagnoses Not on filedocumented in this encounter Care Teams Aircraft Part Assembler Relationship Specialty Start Date End Date Pcp, MD Niki [address] [place] [address] PCP - General Internal Medicine 01/18/23 documented as of this encounter
--- OUTSIDE RECORDS SUMMARY | 2025-04-06 11:32 | XMS_ITS | Clinical Summary ---
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
== END 2025-04-06 10:23 | disposition home or self-care (01) ==
LOC: HO.HMCFMS 09:53
PROVIDERS: PCP Student in an Organized Health Care Education/Training Program; Visit Provider Student in an Organized Health Care Education/Training Program
DX: I10 Essential (primary) hypertension (principal); I70.1 Atherosclerosis of renal artery; I25.10 Atherosclerotic heart disease of native coronary artery without angina pectoris; E11.9 Type 2 diabetes mellitus without complications; K58.9 Irritable bowel syndrome, unspecified; Z86.73 Personal history of transient ischemic attack (TIA), and cerebral infarction without residual deficits; D50.9 Iron deficiency anemia, unspecified; R79.89 Other specified abnormal findings of blood chemistry; N18.32 Chronic kidney disease, stage 3b

== ENCOUNTER → 2025-04-06 09:52 | Outpatient (BNVA) | payer OTHER, SELFPAY | PROVIDERS: Visit Provider Student in an Organized Health Care Education/Training Program | DX: I12.9 Hypertensive chronic kidney disease with stage 1 through stage 4 chronic kidney disease, or unspecified chronic kidney disease (principal); E11.22 Type 2 diabetes mellitus with diabetic chronic kidney disease; N18.32 Chronic kidney disease, stage 3b; I70.1 Atherosclerosis of renal artery; I25.10 Atherosclerotic heart disease of native coronary artery without angina pectoris; D50.9 Iron deficiency anemia, unspecified; E53.8 Deficiency of other specified B group vitamins; K58.2 Mixed irritable bowel syndrome; Z86.73 Personal history of transient ischemic attack (TIA), and cerebral infarction without residual deficits; I25.2 Old myocardial infarction | CPT/HCPCS: 99212 ==